=== PATIENT | male | born 1965 | race Caucasian/White ===

== ENCOUNTER 2020-03-05 01:33 | Inpatient (IN) | payer BC ==
[2020-03-05] MEDS ORDERED: ACETAMINOPHEN TAB 325 MG TAB PO STA (01:52)
[2020-03-05] MEDS ORDERED: IBUPROFEN 600 MG TAB PO STA (01:52)
[2020-03-05] MEDS ORDERED: PIPERACILLIN-TAZOBACTAM 3.375 GM in SODIUM CHLORIDE 0.9% 100 ML IVPB ONE (02:00)
[2020-03-05 02:26] LABS: Basophils # (A) 0.1 k/uL (0-0.2); Basophils % (A) 1 %; Eosinophils # (A) 0.3 k/uL (0-0.7); Eosinophils % (A) 2 %; HGB 14.6 gm/dL (13.0-17.5); Lymphocytes # (A) 0.7 k/uL (1.0-4.8); Lymphocytes % (A) 6 %; MCHC 32.4 g/dL (31.0-37.0); MCV 89.7 fL (80.0-100.0); Monocytes # (A) 0.3 k/uL (0-1.0); Monocytes % (A) 3 %; Neutrophils # (A) 11.8 k/uL (1.3-7.7); Neutrophils % (A) 89 %; Platelet Count 251 k/uL (150-450); RBC 5.02 m/uL (4.30-5.90); RDW 13.2 % (11.5-15.5); WBC 13.3 k/uL (3.8-10.6)
[2020-03-05 02:35] LABS: Partial Thromboplastin Time 23.5 sec (22.0-30.0); Prothrombin Time 10.2 sec (9.0-12.0)
[2020-03-05] MEDS: SODIUM CHLORIDE 0.9% 1,000 ML IV SCH ×3 (02:35→22:28)
[2020-03-05] MEDS: SODIUM CHLORIDE 0.9% 500 ML 500 ML IV SCH (02:35)
[2020-03-05 02:40] LABS: Albumin 4.2 g/dL (3.5-5.0); Calcium 8.9 mg/dL (8.4-10.2); Potassium 4.3 mmol/L (3.5-5.1); Total Bilirubin 0.6 mg/dL (0.2-1.3); Total Protein 7.1 g/dL (6.3-8.2)
--- NOTE | 2020-03-05 02:52 | ED ---
General Adult HPI - General Source: patient, RN notes reviewed, old records reviewed Mode of arrival: ambulatory Limitations: no limitations <Cuauhtemoc Bermudez - Last Filed: 03/05/20 19:09> <Crispin Silva - Last Filed: 03/12/20 23:53> - General Chief complaint: Abdominal Pain Stated complaint: Abdominal Pain Time Seen by Provider: 03/05/20 01:47 - History of Present Illness Initial comments: 54 old male patient ED for evaluation of lower quadrant discomfort. Patient had an upper GI scope earlier today. Patient reports that a couple hours ago he began experiencing primarily left lower quadrant discomfort. She reports nausea without emesis. Denies chest pain shortness of breath. Denies any cough or congestion. Does have history of diverticulitis. Denies any other acute complaints. Systemic: Pt denies fatigue, fever/chills, rash. Pt denies weakness, night sweats, weight loss. Neuro: Pt denies headache, visual disturbances, syncope or pre-syncope. HEENT: Pt denies ocular discharge or irritation, otalgia, rhinorrhea, pharyngitis or notable lymphadenopathy. Cardiopulmonary: Pt denies chest pain, SOB, heart palpitations, dyspnea on exertion. Abdominal/GI: Pt denies abdominal pain, n/v/d. : Pt denies dysuria, burning w/ urination, frequency/urgency. Denies new onset urinary or bowel incontinence. MSK: Pt denies myalgia, loss of strength or function in extremities. Neuro: Pt denies new onset weakness, paresthesias. (Cuauhtemoc Bermudez) - Related Data Home Medications Medication Instructions Recorded Confirmed Aspirin EC [Ecotrin Low Dose] 81 mg PO DAILY 03/05/20 03/05/20 Cholecalciferol [Vitamin D3 (25 2,000 unit PO DAILY 03/05/20 03/05/20 Mcg = 1000 Iu)] Glucos Sul 2Kcl/MSM/Chond/C/Mn 1 cap PO DAILY 03/05/20 03/05/20 [Glucosamine Chondroitin Cap] Omeprazole 20 mg PO DAILY 03/05/20 03/05/20 Vitamin B Complex 1 cap PO DAILY 03/05/20 03/05/20 Allergies Allergy/AdvReac Type Severity Reaction Status Date / Time morphine Allergy Anaphylaxis Verified 03/05/20 07:30 Review of Systems ROS Other: All systems not noted in ROS Statement are negative. <Cuauhtemoc Bermudez - Last Filed: 03/05/20 19:09> ROS Other: All systems not noted in ROS Statement are negative. <RicardoCrispin - Last Filed: 03/12/20 23:53> ROS Statement: Those systems with pertinent positive or pertinent negative responses have been documented in the HPI. Past Medical History Additional Past Medical History / Comment(s): Diverticulitis History of Any Multi-Drug Resistant Organisms: None Reported Past Surgical History: Hernia Repair Past Psychological History: No Psychological Hx Reported Smoking Status: Never smoker Past Alcohol Use History: Occasional Past Drug Use History: None Reported <Cuauhtemoc Bermudez - Last Filed: 03/05/20 19:09> General Exam Limitations: no limitations <Cuauhtemoc Bermudez - Last Filed: 03/05/20 19:09> - General Exam Comments Initial Comments: Constitutional: NAD, AOX3, Pt has pleasant affect. HEENT: NC/AT, trachea midline, neck supple, no lymphadenopathy. Posterior pharynx non erythematous, without exudates. External ears appear normal, without discharge. Mucous membranes moist. Eyes PERRLA, EOM intact. There is no scleral icterus. No pallor noted. Cardiopulmonary: RRR, no murmurs, rubs or gallops, no JVD noted. Lungs CTAB in anterior and posterior veliz. No peripheral edema. Abdominal exam: Abdomen soft and non-distended. Abdomen tender to palpation left lower quadrant region. No hepatosplenomegaly. No ecchymosis Neuro: CN II-XII grossly intact. No nuchal rigidity. No raccon eyes, no dickens sign, no hemotympanum. No cervical spinal tenderness. MSK: Full active ROM in upper and lower extremities, 5/5 stregnth. (Cuauhtemoc Bermudez) Course Vital Signs 03/05/20 03/05/20 01:38 03:17 Temperature 101.8 F H 100 F H Pulse Rate 97 96 Respiratory 18 18 Rate Blood Pressure 138/81 124/68 O2 Sat by Pulse 96 97 Oximetry Medical Decision Making - Lab Data Result diagrams: 03/05/20 02:11 03/05/20 02:11 - EKG Data -: EKG Interpreted by Me (and Dr. Mccartney ) <Cuauhtemoc Bermudez - Last Filed: 03/05/20 19:09> - Lab Data Result diagrams: 03/12/20 06:51 03/12/20 06:51 <Crispin Silva - Last Filed: 03/12/20 23:53> - Medical Decision Making 54-year-old male patient ED for evaluation left lower quadrant abdominal pain began earlier today. On physical exam patient is quite tender to palpation in left lower quadrant region. Laboratory investigations revealed, leukocytosis, increased lactic acid noted. Patient administered fluid bolus. CT with cont rast is obtained. Patient initiated on Zosyn. Signed out to Dr. Mccartney pending CT. (Cuauhtemoc Bermudez) I saw this patient in conjunction with the physician high school assistant football coach. I performed independent history and physical exam. Agree with case management. (Allen Silva ) - Lab Data Lab Results 03/05/20 03/05/20 03/05/20 Range/Units 02:11 02:11 02:11 WBC 13.3 H (3.8-10.6) k/uL RBC 5.02 (4.30-5.90) m/uL Hgb 14.6 (13.0-17.5) gm/dL Hct 45.0 (39.0-53.0) % MCV 89.7 (80.0-100.0) fL MCH 29.0 (25.0-35.0) pg MCHC 32.4 (31.0-37.0) g/dL RDW 13.2 (11.5-15.5) % Plt Count 251 (150-450) k/uL Neutrophils % 89 % Lymphocytes % 6 % Monocytes % 3 % Eosinophils % 2 % Basophils % 1 % Neutrophils # 11.8 H (1.3-7.7) k/uL Lymphocytes # 0.7 L (1.0-4.8) k/uL Monocytes # 0.3 (0-1.0) k/uL Eosinophils # 0.3 (0-0.7) k/uL Basophils # 0.1 (0-0.2) k/uL PT 10.2 (9.0-12.0) sec INR 1.0 (<1.2) APTT 23.5 (22.0-30.0) sec Sodium 136 L (137-145) mmol/L Potassium 4.3 (3.5-5.1) mmol/L Chloride 103 (98-107) mmol/L Carbon Dioxide 25 (22-30) mmol/L Anion Gap 8 mmol/L BUN 13 (9-20) mg/dL Creatinine 1.09 (0.66-1.25) mg/dL Est GFR (CKD-EPI)AfAm 87 (>60 ml/min/1.73 sqM) Est GFR (CKD-EPI)NonAf 76 (>60 ml/min/1.73 sqM) Glucose 129 H (74-99) mg/dL Lactic Ac Sepsis Rflx Plasma Lactic Acid [place] (0.7-2.0) mmol/L Calcium 8.9 (8.4-10.2) mg/dL Total Bilirubin 0.6 (0.2-1.3) mg/dL AST 37 (17-59) U/L ALT 32 (4-49) U/L Alkaline Phosphatase 53 (38-126) U/L Total Protein 7.1 (6.3-8.2) g/dL Albumin 4.2 (3.5-5.0) g/dL Urine Color Urine Appearance (Clear) Urine pH (5.0-8.0) Ur Specific [place] (1.001-1.035) Urine Protein (Negative) Urine Glucose (UA) (Negative) Urine Ketones (Negative) Urine Blood (Negative) Urine Nitrite (Negative) Urine Bilirubin (Negative) Urine Urobilinogen (<2.0) mg/dL Ur Leukocyte Esterase (Negative) 03/05/20 03/05/20 03/05/20 Range/Units 02:11 02:45 03:10 WBC (3.8-10.6) k/uL RBC (4.30-5.90) m/uL Hgb (13.0-17.5) gm/dL Hct (39.0-53.0) % MCV (80.0-100.0) fL MCH (25.0-35.0) pg MCHC (31.0-37.0) g/dL RDW (11.5-15.5) % Plt Count (150-450) k/uL Neutrophils % % Lymphocytes % % Monocytes % % Eosinophils % % Basophils % % Neutrophils # (1.3-7.7) k/uL Lymphocytes # (1.0-4.8) k/uL Monocytes # (0-1.0) k/uL Eosinophils # (0-0.7) k/uL Basophils # (0-0.2) k/uL PT (9.0-12.0) sec INR (<1.2) APTT (22.0-30.0) sec Sodium (137-145) mmol/L Potassium (3.5-5.1) mmol/L Chloride (98-107) mmol/L Carbon Dioxide (22-30) mmol/L Anion Gap mmol/L BUN (9-20) mg/dL Creatinine (0.66-1.25) mg/dL Est GFR (CKD-EPI)AfAm (>60 ml/min/1.73 sqM) Est GFR (CKD-EPI)NonAf (>60 ml/min/1.73 sqM) Glucose (74-99) mg/dL Lactic Ac Sepsis Rflx Y Plasma Lactic Acid [place] 2.2 H* (0.7-2.0) mmol/L Calcium (8.4-10.2) mg/dL Total Bilirubin (0.2-1.3) mg/dL AST (17-59) U/L ALT (4-49) U/L Alkaline Phosphatase (38-126) U/L Total Protein (6.3-8.2) g/dL Albumin (3.5-5.0) g/dL Urine Color Light Yellow Urine Appearance Clear (Clear) Urine pH 6.5 (5.0-8.0) Ur Specific [place] 1.010 (1.001-1.035) Urine Protein Negative (Negative) Urine Glucose (UA) Negative (Negative) Urine Ketones Negative (Negative) Urine Blood Negative (Negative) Urine Nitrite Negative (Negative) Urine Bilirubin Negative (Negative) Urine Urobilinogen <2.0 (<2.0) mg/dL Ur Leukocyte Esterase Negative (Negative) - EKG Data EKG Comments: Ventricular rate 89, DC interval 148, QRS 92, QT/QTc 364/442. Normal sinus rhythm. Normal EKG. No concern for acute ischemia. (Cuauhtemoc Bermudez) Disposition Is patient prescribed a controlled substance at d/c from ED?: No <Cuauhtemoc Bermudez - Last Filed: 03/05/20 19:09> <Crispin Silva - Last Filed: 11/05/20 23:53> Clinical Impression: Acute diverticulitis Disposition: ADMITTED IP TO THIS HOSP Condition: Serious
[2020-03-05] MEDS ORDERED: HYDROcodone/APAP 5-325MG 1 EACH TAB PO STA (03:07)
[2020-03-05 03:18] LABS: Appearance,Urine Clear (Clear); Bilirubin,Urine Negative (Negative); Blood,Urine Negative (Negative); Color,Urine Light Yellow; Glucose,Urine (UA) Negative (Negative); Ketones,Urine Negative (Negative); Leukocyte Esterase,Urine Negative (Negative); Nitrite,Urine Negative (Negative); PH, Urine 6.5 (5.0-8.0); Protein,Urine Negative (Negative); Urobilinogen,Urine <2.0 mg/dL (<2.0)
--- NOTE | 2020-03-05 03:27 | CT ---
EXAM: CT Abdomen and Pelvis With Intravenous Contrast CLINICAL HISTORY: ITS.REASON CT Reason: RLQ, LLQ TECHNIQUE: Axial computed tomography images of the abdomen and pelvis with intravenous contrast. CTDI is 25.77 mGy and DLP is 1203.1 mGy-cm. This CT exam was performed using one or more of the following dose reduction techniques: automated exposure control, adjustment of the mA and/or kV according to patient size, and/or use of iterative reconstruction technique. COMPARISON: No relevant prior studies available. FINDINGS: Lung bases: Mild basilar atelectasis. ABDOMEN: Liver: Unremarkable. No mass. Gallbladder and bile ducts: Unremarkable. No calcified stones. No ductal dilation. Pancreas: Unremarkable. No mass. No ductal dilation. Spleen: Unremarkable. No splenomegaly. Adrenals: Unremarkable. No mass. Kidneys and ureters: Horseshoe kidney. No hydronephrosis. Stomach and bowel: Colonic diverticulosis. Sigmoid wall thickening and surrounding fat stranding. Few gas bubbles around the thickened sigmoid in the area of inflammation. May be within diverticula although small extraluminal gas bubbles possible. No obstruction. PELVIS: Appendix: Normal appendix. Bladder: Unremarkable. No mass. Reproductive: Unremarkable as visualized. ABDOMEN and PELVIS: Intraperitoneal space: Unremarkable. No significant fluid collection. Bones/joints: No acute fracture. No dislocation. Soft tissues: Unremarkable. Vasculature: Unremarkable. No abdominal aortic aneurysm. Lymph nodes: Unremarkable. No enlarged lymph nodes. IMPRESSION: 1. Acute sigmoid diverticulitis. Small gas bubbles around the thickened sigmoid likely within diverticula, although small extraluminal gas bubbles adjacent to the thickened sigmoid possible. No fluid collection. 2. Horseshoe kidney. <MYCVCSECTION> Communications: 03/05/20 03:33 Verify Receipt Verified receipt with CLARE Martines in ER for Dr. Martines on 03/05 03:33 (-04:00)
[2020-03-05] MEDS ORDERED: ONDANSETRON 4 MG/2 ML VIAL IVP PRN (03:41)
[2020-03-05] MEDS ORDERED: NALOXONE 0.4 MG/ML 1 ML VIAL IV PRN (03:41)
[2020-03-05] MEDS: HYDROcodone/APAP 5-325MG 1 EACH TAB PO PRN (07:28)
[2020-03-05] MEDS: PANTOPRAZOLE 40 MG/10 ML VIAL IV SCH (08:51)
[2020-03-05] MEDS: PIPERACILLIN-TAZOBACTAM 3.375 GM in SODIUM CHLORIDE 0.9% 100 ML IVPB SCH ×2 (09:26→19:02)
--- NOTE | 2020-03-05 10:41 | P.GSHP ---
<Patricia Milton - Last Filed: 03/05/20 13:14> History of Present Illness H&P Date: 03/05/20 CHIEF COMPLAINT: Left lower quadrant abdominal pain HISTORY OF PRESENT ILLNESS: This is a 54-year-old male with a known history of diverticulitis with previous episode of diverticulitis requiring hospitalization. Patient also has history of GERD and umbilical hernia repair. Per patient he had EGD yesterday with Dr. Montemayor for his dysphagia and the patient was started on Omeprazole for GERD. Patient reports yesterday he ate [place] for dinner And then started having severe left lower quadrant abdominal pain. He reports that the pain was very sharp and rated the pain 10 out of 10. He reports that the pain comes and goes in waves. He was having chills, sweats and nausea without emesis. Patient reports having BMs with no Blood in stool. Patient had computed tomography scan of the abdomen and pelvis Showing acute si gmoid diverticulitis. Small gas bubbles around the thickened sigmoid likely within diverticula, although small extraluminal gas bubbles adjacent to the thickened sigmoid possible. No fluid collection. Patient had fever of 101.8, white count 13.3 and lactic acid 2.2 on admission he's been started on IV antibiotics and IV fluids. PAST MEDICAL HISTORY: See list. PAST SURGICAL HISTORY: See list. Last colonoscopy about 3 years ago. Patient has had prior colonoscopies with polyps removed MEDICATIONS: See list. ALLERGIES: See list. SOCIAL HISTORY: No illicit drug use. REVIEW OF SYSTEMS: CONSTITUTIONAL: Denies fever or chills. HEENT: Denies blurred vision, vision changes, or eye pain. Denies hemoptysis CARDIOVASCULAR: Denies chest pain or pressure. RESPIRATORY: No shortness of breath. GASTROINTESTINAL: See HPI for pertinent findings HEMATOLOGIC: Denies bleeding disorders. GENITOURINARY: Denies any blood in urine or increased urinary frequency. SKIN: Denies pruitis. Denies rash. PHYSICAL EXAM: VITAL SIGNS: Reviewed GENERAL: Well-developed in no acute distress. HEENT: No sclera icterus. Extraocular movements grossly intact. Moist buccal mucosa. Head is atraumatic, normocephalic. No nasal drainage. ABDOMEN: Soft. Nondistended left lower quadrant tenderness with palpation NEUROLOGIC: Alert and oriented. Cranial nerves II through XII grossly intact. LABORATORY DATA: WBC 13.3 Lactic 2.2 down to 1.7 UA negative IMAGING: computed tomography scan of the abdomen and pelvis Showing acute sigmoid diverticulitis. Small gas bubbles around the thickened sigmoid likely within diverticula, although small extraluminal gas bubbles adjacent to the thickened sigmoid possible. No fluid collection. Horseshoe kidney ASSESSMENT: 1. Acute sigmoid diverticulitis with microperforation and sepsis 2. Prior history of diverticulitis 3. Recent EGD yesterday 4. GERD PLAN: -Continue Zosyn 3.375 g IV every 8 hours -Continue IV fluids -Check blood cultures -Continue Tylenol as needed for fevers -Continue [place] for pain -Consult medicine for medical management -GI prophylaxis Protonix and DVT prophylaxis subcu heparin Physician Tube Cutter note has been reviewed by physician. Signing provider agrees with the documented findings, assessment, and plan of care. Past Medical History Additional Past Medical History / Comment(s): Diverticulitis History of Any Multi-Drug Resistant Organisms: None Reported Past Surgical History: Hernia Repair Past Psychological History: No Psychological Hx Reported Smoking Status: Never smoker Past Alcohol Use History: Occasional Past Drug Use History: None Reported Medications and Allergies Home Medications Medication Instructions Recorded Confirmed Type Aspirin EC [Ecotrin Low Dose] 81 mg PO DAILY 03/05/20 03/05/20 History Cholecalciferol [Vitamin D3 (25 2,000 unit PO DAILY 03/05/20 03/05/20 History Mcg = 1000 Iu)] Glucos Sul 2Kcl/MSM/Chond/C/Mn 1 cap PO DAILY 03/05/20 03/05/20 History [Glucosamine Chondroitin Cap] Omeprazole 20 mg PO DAILY 03/05/20 03/05/20 History Vitamin B Complex 1 cap PO DAILY 03/05/20 03/05/20 History Allergies Allergy/AdvReac Type Severity Reaction Status Date / Time morphine Allergy Anaphylaxis Verified 03/05/20 07:30 Surgical - Exam Vital Signs Temp Pulse Resp BP Pulse Ox 101.8 F H 97 18 138/81 96 03/05/20 01:38 03/05/20 01:38 03/05/20 01:38 03/05/20 01:38 03/05/20 01:38 Results - Labs 03/05/20 02:11 03/05/20 02:11 Abnormal Lab Results - Last 24 Hours (Table) 03/05/20 03/05/20 03/05/20 Range/Units 02:11 02:11 02:11 WBC 13.3 H (3.8-10.6) k/uL Neutrophils # 11.8 H (1.3-7.7) k/uL Lymphocytes # 0.7 L (1.0-4.8) k/uL Sodium 136 L (137-145) mmol/L Glucose 129 H (74-99) mg/dL Plasma Lactic Acid [place] 2.2 H* (0.7-2.0) mmol/L Diabetes panel 03/05/20 Range/Units 02:11 Sodium 136 L (137-145) mmol/L Potassium 4.3 (3.5-5.1) mmol/L Chloride 103 (98-107) mmol/L Carbon Dioxide 25 (22-30) mmol/L BUN 13 (9-20) mg/dL Creatinine 1.09 (0.66-1.25) mg/dL Glucose 129 H (74-99) mg/dL Calcium 8.9 (8.4-10.2) mg/dL AST 37 (17-59) U/L ALT 32 (4-49) U/L Alkaline Phosphatase 53 (38-126) U/L Total Protein 7.1 (6.3-8.2) g/dL Albumin 4.2 (3.5-5.0) g/dL Calcium panel 03/05/20 Range/Units 02:11 Calcium 8.9 (8.4-10.2) mg/dL Albumin 4.2 (3.5-5.0) g/dL Pituitary panel 03/05/20 Range/Units 02:11 Sodium 136 L (137-145) mmol/L Potassium 4.3 (3.5-5.1) mmol/L Chloride 103 (98-107) mmol/L Carbon Dioxide 25 (22-30) mmol/L BUN 13 (9-20) mg/dL Creatinine 1.09 (0.66-1.25) mg/dL Glucose 129 H (74-99) mg/dL Calcium 8.9 (8.4-10.2) mg/dL Adrenal panel 03/05/20 Range/Units 02:11 Sodium 136 L (137-145) mmol/L Potassium 4.3 (3.5-5.1) mmol/L Chloride 103 (98-107) mmol/L Carbon Dioxide 25 (22-30) mmol/L BUN 13 (9-20) mg/dL Creatinine 1.09 (0.66-1.25) mg/dL Glucose 129 H (74-99) mg/dL Calcium 8.9 (8.4-10.2) mg/dL Total Bilirubin 0.6 (0.2-1.3) mg/dL AST 37 (17-59) U/L ALT 32 (4-49) U/L Alkaline Phosphatase 53 (38-126) U/L Total Protein 7.1 (6.3-8.2) g/dL Albumin 4.2 (3.5-5.0) g/dL <Reuben Montemayor - Last Filed: 03/05/20 13:48> History of Present Illness As above. Patient with history of previous sigmoid diverticulitis. Underwent elective EGD yesterday and while there are mention that he was having some intermittent left lower quadrant pain. I told the family to go to the hospital for evaluation of the pain worsened and he did go to the hospital yesterday evening. Patient states the pain he was having yesterday was more severe than it has been in years. CAT scan showed evidence of acute diverticulitis with a few small extraluminal gas bubbles consistent with microscopic perforation. He states he does feel better today. White blood cell count remains elevated. Lactic acid was elevated and now improved. Continue broad-spectrum antibiotics. Continue clear liquid diet only. Surgical - Exam Vital Signs Temp Pulse Resp BP Pulse Ox 101.8 F H 97 18 138/81 96 03/05/20 01:38 03/05/20 01:38 03/05/20 01:38 03/05/20 01:38 03/05/20 01:38 Results - Labs 03/05/20 02:11 03/05/20 02:11 Abnormal Lab Results - Last 24 Hours (Table) 03/05/20 03/05/20 03/05/20 Range/Units 02:11 02:11 02:11 WBC 13.3 H (3.8-10.6) k/uL Neutrophils # 11.8 H (1.3-7.7) k/uL Lymphocytes # 0.7 L (1.0-4.8) k/uL Sodium 136 L (137-145) mmol/L Glucose 129 H (74-99) mg/dL Plasma Lactic Acid [place] 2.2 H* (0.7-2.0) mmol/L Diabetes panel 03/05/20 Range/Units 02:11 Sodium 136 L (137-145) mmol/L Potassium 4.3 (3.5-5.1) mmol/L Chloride 103 (98-107) mmol/L Carbon Dioxide 25 (22-30) mmol/L BUN 13 (9-20) mg/dL Creatinine 1.09 (0.66-1.25) mg/dL Glucose 129 H (74-99) mg/dL Calcium 8.9 (8.4-10.2) mg/dL AST 37 (17-59) U/L ALT 32 (4-49) U/L Alkaline Phosphatase 53 (38-126) U/L Total Protein 7.1 (6.3-8.2) g/dL Albumin 4.2 (3.5-5.0) g/dL Calcium panel 03/05/20 Range/Units 02:11 Calcium 8.9 (8.4-10.2) mg/dL Albumin 4.2 (3.5-5.0) g/dL Pituitary panel 03/05/20 Range/Units 02:11 Sodium 136 L (137-145) mmol/L Potassium 4.3 (3.5-5.1) mmol/L Chloride 103 (98-107) mmol/L Carbon Dioxide 25 (22-30) mmol/L BUN 13 (9-20) mg/dL Creatinine 1.09 (0.66-1.25) mg/dL Glucose 129 H (74-99) mg/dL Calcium 8.9 (8.4-10.2) mg/dL Adrenal panel 03/05/20 Range/Units 02:11 Sodium 136 L (137-145) mmol/L Potassium 4.3 (3.5-5.1) mmol/L Chloride 103 (98-107) mmol/L Carbon Dioxide 25 (22-30) mmol/L BUN 13 (9-20) mg/dL Creatinine 1.09 (0.66-1.25) mg/dL Glucose 129 H (74-99) mg/dL Calcium 8.9 (8.4-10.2) mg/dL Total Bilirubin 0.6 (0.2-1.3) mg/dL AST 37 (17-59) U/L ALT 32 (4-49) U/L Alkaline Phosphatase 53 (38-126) U/L Total Protein 7.1 (6.3-8.2) g/dL Albumin 4.2 (3.5-5.0) g/dL
[2020-03-05] MEDS: ACETAMINOPHEN TAB 325 MG TAB PO PRN (13:49)
[2020-03-05] MEDS: metroNIDAZOLE-NS PMX 500 MG in SALINE 1 100ML.BAG IVPB SCH (16:17)
[2020-03-05] MEDS: KETOROLAC 15 MG/ML 1 ML VIAL IVP SCH (19:01)
[2020-03-05] MEDS: HEPARIN SODIUM,PORCINE 5,000 UNIT/ML 1 ML VIAL SQ SCH (21:58)
--- NOTE | 2020-03-05 23:26 | P.CONS ---
History of Present Illness - Reason for Consult Consult date: 03/05/20 Medical management Requesting physician: Reuben Montemayor - Chief Complaint Abdominal pain - History of Present Illness History of presenting complaint: This is a pleasant 54 year patient . Patient's had one prior by bout of diverticulitis few years ago. For last few days has been feeling a bit queasy the left lower abdomen. Symptoms progressively got worse. The day prior to admission pain progressed to be rather severe today left lower abdomen. There no significant nausea. No vomiting. Fever and chills were present. Patient normally has one bowel movement every day or every other day. Presented to the ER. Was febrile septic. It showed few gas bubbles around the tick and sigmoid in the area of inflammation. Patient admitted with IV fluids antibiotics. On a clear liquid diet. Significant pain. Review of systems: GEN.: Fever and chills EYES: None HEENT: None NECK: None RESPIRATORY: None CARDIOVASCULAR: None GASTROINTESTINAL: As above GENITOURINARY: None MUSCULOSKELETAL: None LYMPHATICS: None HEMATOLOGICAL: None PSYCHIATRY: None NEUROLOGICAL: None Past medical history to include: Diverticulitis, hernia repair Social history: Lives with his . No history of smoking and alcohol. Employed Family history: Reviewed, noncontributory to presentation Physical examination: VITAL SIGNS: 101.8, 97, 18, 138/81, 96% room air GENERAL: BMI 31, laying in bed, not in distress. EYES: Pupils equal. Conjunctiva normal. HEENT: External appearance of nose and ears normal, oral cavity grossly normal. NECK: JVD not raised; masses not palpable. HEART: First and second heart sounds are normal; no edema. LUNGS: Respiratory rate normal; clear to auscultation. ABDOMEN: Soft, significant tenderness in the left lower quadrant with mild gu arding, liver spleen not palpable, no masses palpable. PSYCH: Alert and oriented x3; mood and affect normal. NEUROLOGICAL: Cranial nerves grossly intact; no facial asymmetry, power and sensation grossly intact. LYMPHATICS: No lymph nodes palpable in the axilla and neck INVESTIGATIONS, reviewed in the clinical context: White count 13.3 hemoglobin 14.6 left shift, potassium 4.3 creatinine 1.09 lactic acid 2.2 Computed tomography scan of the abdomen-sigmoid dermatitis with few gas bubbles Assessment: -Acute severe sigmoid diverticular disease with possibly localized perforation contained -Sepsis from above -Lactic acidosis from above Plan: Patient is on IV Zosyn and IV Flagyl. Subcu heparin for DT prophylaxis. IV fluids. Patient looking liquid diet. Care was discussed with the patient question also. Activity as tolerated. Thank you Dr. Craft Past Medical History Additional Past Medical History / Comment(s): Diverticulitis History of Any Multi-Drug Resistant Organisms: None Reported Past Surgical History: Hernia Repair Past Psychological History: No Psychological Hx Reported Smoking Status: Never smoker Past Alcohol Use History: Occasional Past Drug Use History: None Reported Medications and Allergies Home Medications Medication Instructions Recorded Confirmed Type Aspirin EC [Ecotrin Low Dose] 81 mg PO DAILY 03/05/20 03/05/20 History Cholecalciferol [Vitamin D3 (25 2,000 unit PO DAILY 03/05/20 03/05/20 History Mcg = 1000 Iu)] Glucos Sul 2Kcl/MSM/Chond/C/Mn 1 cap PO DAILY 03/05/20 03/05/20 History [Glucosamine Chondroitin Cap] Omeprazole 20 mg PO DAILY 03/05/20 03/05/20 History Vitamin B Complex 1 cap PO DAILY 03/05/20 03/05/20 History Allergies Allergy/AdvReac Type Severity Reaction Status Date / Time morphine Allergy Anaphylaxis Verified 03/05/20 07:30 Physical Exam Vitals: Vital Signs Temp Pulse Pulse Resp BP BP Pulse Ox 03/05/20 08:00 83 18 03/05/20 07:32 98.5 F 83 18 121/63 95 03/05/20 04:55 99.4 F 86 18 113/69 94 L 03/05/20 03:17 100 F H 96 18 124/68 97 03/05/20 01:38 101.8 F H 97 18 138/81 96 Intake and Output 03/04/20 03/05/20 03/05/20 22:59 06:59 14:59 Other: # Voids 0 0 Weight 95.254 kg Results CBC & Chem 7: 03/05/20 02:11 03/05/20 02:11 Labs: Abnormal Lab Results - Last 24 Hours (Table) 03/05/20 03/05/20 03/05/20 Range/Units 02:11 02:11 02:11 WBC 13.3 H (3.8-10.6) k/uL Neutrophils # 11.8 H (1.3-7.7) k/uL Lymphocytes # 0.7 L (1.0-4.8) k/uL Sodium 136 L (137-145) mmol/L Glucose 129 H (74-99) mg/dL Plasma Lactic Acid [place] 2.2 H* (0.7-2.0) mmol/L
[2020-03-06] MEDS: KETOROLAC 15 MG/ML 1 ML VIAL IVP SCH ×5 (00:36→23:37)
[2020-03-06] MEDS: metroNIDAZOLE-NS PMX 500 MG in SALINE 1 100ML.BAG IVPB SCH ×4 (00:37→23:38)
[2020-03-06] MEDS: HYDROcodone/APAP 5-325MG 1 EACH TAB PO PRN ×3 (02:00→16:05)
[2020-03-06] MEDS: PIPERACILLIN-TAZOBACTAM 3.375 GM in SODIUM CHLORIDE 0.9% 100 ML IVPB SCH ×3 (03:58→19:27)
[2020-03-06] MEDS: SODIUM CHLORIDE 0.9% 1,000 ML IV SCH ×3 (04:55→18:58)
[2020-03-06 06:19] LABS: Basophils % (A) 0 %; Eosinophils # (A) 0.1 k/uL (0-0.7); Eosinophils % (A) 1 %; HCT 37.2 % (39.0-53.0); HGB 12.1 gm/dL (13.0-17.5); Lymphocytes # (A) 1.3 k/uL (1.0-4.8); Lymphocytes % (A) 12 %; MCH 29.7 pg (25.0-35.0); MCHC 32.5 g/dL (31.0-37.0); MCV 91.4 fL (80.0-100.0); Mean Platelet Volume 7.2; Monocytes # (A) 0.4 k/uL (0-1.0); Monocytes % (A) 3 %; Neutrophils # (A) 9.4 k/uL (1.3-7.7); Neutrophils % (A) 83 %; Platelet Count 207 k/uL (150-450); RBC 4.07 m/uL (4.30-5.90); RDW 13.4 % (11.5-15.5); WBC 11.3 k/uL (3.8-10.6)
[2020-03-06] MEDS: ACETAMINOPHEN TAB 325 MG TAB PO PRN (07:41)
--- NOTE | 2020-03-06 08:44 | P.PN ---
<Patricia Milton - Last Filed: 03/06/20 08:40> Subjective Progress Note Date: 03/06/20 CHIEF COMPLAINT: Acute diverticulitis with microperforation HISTORY OF PRESENT ILLNESS: Patient is still very tender in the left lower quadrant. He is rating his pain about 7 out of 10. He did have a fever of 101.3 white count did come down from 13.3-11.3. He denies any nausea or vomiting. Abdominal x-ray has been ordered. We'll keep patient nothing by mouth. PHYSICAL EXAM: VITAL SIGNS: Reviewed. GENERAL: Well-developed in no acute distress. HEENT: No sclera icterus. Extraocular movements grossly intact. Moist buccal m ucosa. Head is atraumatic, normocephalic. ABDOMEN: Soft. Nondistended. Left lower quadrant tenderness with guarding NEUROLOGIC: Alert and oriented. Cranial nerves II through XII grossly intact. ASSESSMENT: 1. Acute sigmoid diverticulitis with microperforation and sepsis 2. Prior history of diverticulitis 3. Recent EGD yesterday 4. GERD PLAN: -check stat abdominal x-ray to evaluate for any further perforation -Keep patient nothing by mouth for now -Continue antibiotics, Zosyn and Flagyl -Continue IV fluids -GI prophylaxis Protonix and DVT prophylaxis Subcu heparin Physician Media Services Director note has been reviewed by physician. Signing provider agrees with the documented findings, assessment, and plan of care. Objective - Vital Signs Vital signs: Vital Signs Temp 101.3 F H 03/06/20 07:28 Pulse 96 03/06/20 07:28 Resp 17 03/06/20 07:28 BP 154/80 03/06/20 07:28 Pulse Ox 96 03/06/20 07:28 Intake & Output 03/05/20 03/06/20 03/06/20 18:59 06:59 18:59 Other: Voiding Method Toilet # Voids 2 1 - Labs CBC & Chem 7: 03/06/20 06:00 03/05/20 02:11 Labs: Abnormal Lab Results - Last 24 Hours (Table) 03/06/20 Range/Units 06:00 WBC 11.3 H (3.8-10.6) k/uL RBC 4.07 L (4.30-5.90) m/uL Hgb 12.1 L (13.0-17.5) gm/dL Hct 37.2 L (39.0-53.0) % Neutrophils # 9.4 H (1.3-7.7) k/uL Microbiology - Last 24 Hours (Table) 03/05/20 02:11 Blood Culture - Preliminary Blood No Growth after 24 hours <JoycenicholasReuben - Last Filed: 03/06/20 12:43> Subjective Patient says his pain is improved today from admission. He did have a fever this morning 11.3. Repeat abdominal films show no evidence of peritoneum. He did have a bowel movement and flatus yesterday. No nausea or vomiting. Objective - Vital Signs Vital signs: Vital Signs Temp 101.3 F H 03/06/20 07:28 Pulse 96 03/06/20 07:28 Resp 17 03/06/20 07:28 BP 154/80 03/06/20 07:28 Pulse Ox 96 03/06/20 07:28 Intake & Output 03/05/20 03/06/20 03/06/20 18:59 06:59 18:59 Other: Voiding Method Toilet # Voids 2 1 - Exam Abdomen: Soft, nondistended, left lower quadrant tenderness present, minimal tenderness right lower quadrant, no upper abdominal tenderness - Labs CBC & Chem 7: 03/06/20 06:00 03/06/20 06:00 Labs: Abnormal Lab Results - Last 24 Hours (Table) 03/06/20 03/06/20 Range/Units 06:00 06:00 WBC 11.3 H (3.8-10.6) k/uL RBC 4.07 L (4.30-5.90) m/uL Hgb 12.1 L (13.0-17.5) gm/dL Hct 37.2 L (39.0-53.0) % Neutrophils # 9.4 H (1.3-7.7) k/uL BUN/Creatinine Ratio 10.91 L (12.00-20.00) Ratio Calcium 7.9 L (8.7-10.3) mg/dL Microbiology - Last 24 Hours (Table) 03/05/20 02:11 Blood Culture - Preliminary Blood No Growth after 24 hours Assessment and Plan (1) Sigmoid diverticulitis Narrative/Plan: 54 old male with sigmoid colon diverticulitis with microperforation present. P atient had a fever this morning. White blood cell count slightly improved. We did order abdominal films to rule out progression to erwin pneumoperitoneum which was negative. Patient states he definitely feels better than he did on arrival. Continue conservative management at this time with liquid diet only and IV antibiotics. We'll monitor closely. Current Visit: Yes Status: Acute Code(s): K57.32 - DVTRCLI OF LG INT W/O PERFORATION OR ABSCESS W/O BLEEDING SNOMED Code(s): 140522326
[2020-03-06] MEDS: PANTOPRAZOLE 40 MG/10 ML VIAL IV SCH (08:51)
[2020-03-06] MEDS: HEPARIN SODIUM,PORCINE 5,000 UNIT/ML 1 ML VIAL SQ SCH ×2 (08:56→20:30)
--- NOTE | 2020-03-06 09:27 | XR ---
2 view abdomen HISTORY: Abdominal pain, perforation 2 views the abdomen on [address] scan 03/05/2020 Lung bases show subsegmental basilar atelectatic change. There is no evident pneumoperitoneum. No pat hologic calcification. No bowel obstruction. Multiple calcifications within the pelvis represent phle boliths. Osteoarthritic changes present within the hips. There are some air-fluid levels on the uprig ht exam without bowel distention. IMPRESSION: Basilar atelectasis. Correlate for ileus.
[2020-03-06 10:06] LABS: African American GFR (CKD) 86.5 (60.0-200.0); Anion Gap 7.6 mmol/L (4.00-12.00); BUN/Creat Ratio 10.91 Ratio (12.00-20.00); Calcium 7.9 mg/dL (8.7-10.3); Carbon Dioxide 24.4 mmol/L (21.6-31.8); Non-African American GFR(CKD) 74.6 (60.0-200.0); Potassium 3.5 mmol/L (3.5-5.5)
--- NOTE | 2020-03-06 22:41 | P.PN ---
Progress Note - Text Progress Note Date: 03/06/20 - Chief Complaint Abdominal pain - History of Present Illness History of presenting complaint: This is a pleasant 54 year patient . Patient's had one prior by bout of diverticulitis few years ago. For last few days has been feeling a bit queasy the left lower abdomen. Symptoms progressively got worse. The day prior to admission pain progressed to be rather severe today left lower abdomen. There no significant nausea. No vomiting. Fever and chills were present. Patient normally has one bowel movement every day or every other day. Presented to the ER. Was febrile septic. It showed few gas bubbles around the tick and sigmoid in the area of inflammation. Patient admitted with IV fluids antibiotics. On a clear liquid diet. Significant pain. today-still having abdominal pain. On clear liquids. Did have a mushy bowel movement. at the bedside. No fever. No nausea vomiting. Review of systems: Was done for constitutional, cardiovascular, GI, pulmonary. relevant finding as above Active Medications Acetaminophen (Acetaminophen Tab 325 Mg Tab) 650 mg PO Q6HR PRN PRN Reason: Mild Pain or Fever > 100.5 Last Admin: 03/06/20 07:41 Dose: 650 mg Documented by: Hydrocodone Bitart/Acetaminophen (Hydrocodone/Apap 5-325mg 1 Each Tab) 1 each PO Q4HR PRN PRN Reason: Moderate Pain Last Admin: 03/06/20 16:05 Dose: 1 each Documented by: Heparin Sodium (Porcine) (Heparin Sodium,Porcine 5,000 Unit/Ml 1 Ml Vial) 5,000 unit SQ Q12HR [facility] Last Admin: 03/06/20 20:30 Dose: 5,000 unit Documented by: Sodium Chloride (Saline 0.9%) 1,000 mls @ 130 mls/hr IV .Q7H42M [facility] Last Admin: 03/06/20 18:58 Dose: Not Given Documented by: Piperacillin Sod/Tazobactam (Sod 3.375 gm/ Sodium Chloride) 100 mls @ 25 mls/hr IVPB Q8H [facility] Last Admin: 03/06/20 19:27 Dose: 25 mls/hr Documented by: Metronidazole 500 mg/ IV (Solution) 100 mls @ 100 mls/hr IVPB Q8HR [facility] Last Admin: 03/06/20 16:06 Dose: 100 mls/hr Documented by: Ketorolac Tromethamine (Ketorolac 15 Mg/Ml 1 Ml Vial) 15 mg IVP Q6HR [facility] Stop: 03/10/20 18:01 Last Admin: 03/06/20 19:27 Dose: 15 mg Documented by: Naloxone HCl (Naloxone 0.4 Mg/Ml 1 Ml Vial) 0.2 mg IV Q2M PRN PRN Reason: Opioid Reversal Ondansetron HCl (Ondansetron 4 Mg/2 Ml Vial) 4 mg IVP Q8HR PRN PRN Reason: Nausea And Vomiting Pantoprazole Sodium (Pantoprazole 40 Mg/10 Ml Vial) 40 mg IV DAILY [facility] Last Admin: 03/06/20 08:51 Dose: 40 mg Documented by: Physical examination: VITAL SIGNS: 101.3, 96, 17, 150/80, 96% room air GENERAL:laying in bed, tired EYES: Pupils equal. Conjunctiva normal. NECK: JVD not raised; masses not palpable. HEART: First and second heart sounds are normal; no edema. LUNGS: Respiratory rate normal; clear to auscultation. ABDOMEN: Soft, significant tenderness in the left lower quadrant with mild gua rding, liver spleen not palpable, no masses palpable. PSYCH: Alert and oriented x3; mood and affect normal. INVESTIGATIONS, reviewed in the clinical context: White count 11.3 hemoglobin 12.1 potassium 3.5 creatinine 1.1 Previous testing White count 13.3 hemoglobin 14.6 left shift, potassium 4.3 creatinine 1.09 lactic acid 2.2 Computed tomography scan of the abdomen-sigmoid dermatitis with few gas bubbles Assessment: -Acute severe sigmoid diverticular disease with possibly localized perforation contained-slow to respond -Sepsis from above-slow to respond -Lactic acidosis from above Plan: continue IV Zosyn and IV Flagyl. Subcu heparin IV fluids. on clear liquid diet. Care was discussed with the patient and the . Encouraged to be out of bed as tolerated.. Thank you Dr. Craft
[2020-03-07] MEDS: PIPERACILLIN-TAZOBACTAM 3.375 GM in SODIUM CHLORIDE 0.9% 100 ML IVPB SCH ×3 (03:31→18:27)
[2020-03-07] MEDS: SODIUM CHLORIDE 0.9% 1,000 ML IV SCH ×3 (03:58→15:38)
[2020-03-07] MEDS: KETOROLAC 15 MG/ML 1 ML VIAL IVP SCH ×3 (05:44→17:54)
[2020-03-07 07:20] LABS: Basophils % (A) 0 %; Eosinophils # (A) 0.2 k/uL (0-0.7); Eosinophils % (A) 2 %; HCT 34.7 % (39.0-53.0); HGB 11.3 gm/dL (13.0-17.5); Lymphocytes % (A) 10 %; MCH 29.7 pg (25.0-35.0); MCHC 32.7 g/dL (31.0-37.0); MCV 90.9 fL (80.0-100.0); Monocytes # (A) 0.4 k/uL (0-1.0); Monocytes % (A) 5 %; Neutrophils # (A) 7.7 k/uL (1.3-7.7); Neutrophils % (A) 82 %; Platelet Count 205 k/uL (150-450); RBC 3.81 m/uL (4.30-5.90); RDW 13.4 % (11.5-15.5); WBC 9.3 k/uL (3.8-10.6)
[2020-03-07] MEDS: HYDROcodone/APAP 5-325MG 1 EACH TAB PO PRN ×2 (08:18→15:53)
[2020-03-07] MEDS: HEPARIN SODIUM,PORCINE 5,000 UNIT/ML 1 ML VIAL SQ SCH ×2 (08:18→20:14)
[2020-03-07] MEDS: PANTOPRAZOLE 40 MG/10 ML VIAL IV SCH (08:18)
[2020-03-07] MEDS: metroNIDAZOLE-NS PMX 500 MG in SALINE 1 100ML.BAG IVPB SCH ×3 (08:19→15:54)
[2020-03-07 08:26] LABS: Glucose,Whole Blood 91 mg/dL (75-99)
[2020-03-07 09:03] LABS: African American GFR (CKD) >90 (>60 ml/min/1.73 sqM); Anion Gap 4 mmol/L; Blood Urea Nitrogen 8 mg/dL (9-20); Calcium 7.7 mg/dL (8.4-10.2); Carbon Dioxide 25 mmol/L (22-30); Chloride 109 mmol/L (98-107); Glucose 97 mg/dL (74-99); Non-African American GFR(CKD) 79 (>60 ml/min/1.73 sqM); Potassium 3.5 mmol/L (3.5-5.1); Sodium 138 mmol/L (137-145)
[2020-03-07] MEDS: ACETAMINOPHEN TAB 325 MG TAB PO PRN (15:41)
--- NOTE | 2020-03-07 16:48 | P.PN ---
Subjective Progress Note Date: 03/07/20 CHIEF COMPLAINT: Acute diverticulitis HISTORY OF PRESENT ILLNESS: The patient is a 54-year-old male admitted for acute diverticulitis and perforation. He reports intolerance to flagyl with worsening abdominal cramps and nausea. He reports loose stools. This is his second diverticulitis attack. Last colonoscopy less than 5 years ago. ROS: No chills. No new chest pain. No productive sputum. Tm 99.7 PHYSICAL EXAM: VITAL SIGNS: Reviewed CONSTITUTIONAL: Well developed and in no acute distress. EYES: Conjuctivae without sclera icterus. Extraocular movements grossly intact. HEAD, EARS, NOSE, THROAT: Moist buccal mucosa. Head is atraumatic, normocephalic. Hears conversational speech. No nasal drainage. NECK: Supple. No thyroidomegaly. RESPIRATORY: Non-labored respirations and equal bilateral excursions. CARDIOVASCULAR: Palpable 2+ radial pulses. Regular rate. Regular rhythm. ABDOMEN: Soft. Tender left lower quadrant. MUSCULOSKELETAL: No gross deformity of the lower extremities noted. No clubbing. No cyanosis. SKIN: Good skin turgor. Well perfused. NEUROLOGIC: Cranial nerves II through XII grossly intact. No focal or lateralizing signs. PSYCH: Appropriate affect. Alert and oriented to person, place and time. CLINICAL LABS: White blood cell count normal 9.3 down from 11.3. Hemoglobin down 12.1-11.3. STUDIES: CT of the abdomen and pelvis independently reviewed demonstrating inflammatory changes along the sigmoid colon with thickened wall. No free air at the diaphragm identified. This my independent interpretation. ASSESSMENT: 1. Acute diverticulitis 2. Intolerance to flagyl PLAN: 1. He reports worsening symptoms with flagyl. Will discontinue as Zosyn covers gram- and anerobic organisms. 2. Decrease diet to ice chips 3. Scheduled Ofirmev and Tylenol Objective - Vital Signs Vital signs: Vital Signs Temp 98.1 F 03/07/20 07:00 Pulse 85 03/07/20 07:00 Resp 16 03/07/20 01:35 BP 138/78 03/07/20 07:00 Pulse Ox 91 L 03/07/20 07:00 Intake & Output 03/06/20 03/07/20 03/07/20 18:59 06:59 18:59 Other: # Voids 1 2 - Labs CBC & Chem 7: 03/07/20 06:29 03/07/20 06:29 Labs: Abnormal Lab Results - Last 24 Hours (Table) 03/07/20 03/07/20 Range/Units 06:29 06:29 RBC 3.81 L (4.30-5.90) m/uL Hgb 11.3 L (13.0-17.5) gm/dL Hct 34.7 L (39.0-53.0) % Chloride 109 H (98-107) mmol/L BUN 8 L (9-20) mg/dL Calcium 7.7 L (8.4-10.2) mg/dL Microbiology - Last 24 Hours (Table) 03/05/20 02:11 Blood Culture - Preliminary Blood No Growth after 48 hours
[2020-03-07] MEDS: ACETAMINOPHEN IV (For NPO) 1,000 MG in EMPTY BAG 1 BAG IVPB SCH (17:54)
--- NOTE | 2020-03-07 23:11 | P.PN ---
Progress Note - Text Progress Note Date: 03/07/20 - Chief Complaint Abdominal pain History of presenting complaint: This is a pleasant 54 year patient . Patient's had one prior by bout of diverticulitis few years ago. For last few days has been feeling a bit queasy the left lower abdomen. Symptoms progressively got worse. The day prior to admission pain progressed to be rather severe today left lower abdomen. There no significant nausea. No vomiting. Fever and chills were present. Patient normally has one bowel movement every day or every other day. Presented to the ER. Was febrile septic. It showed few gas bubbles around the tick and sigmoid in the area of inflammation. Patient admitted with IV fluids antibiotics. On a clear liquid diet. Significant pain. today-very slight improvement abdominal pain. Pain fluctuating. Up to the bathroom. Had one loose stool. No nausea vomiting Review of systems: Was done for constitutional, cardiovascular, GI, pulmonary. relevant finding as above Active Medications Hydrocodone Bitart/Acetaminophen (Hydrocodone/Apap 5-325mg 1 Each Tab) 1 each PO Q4HR PRN PRN Reason: Moderate Pain Last Admin: 03/07/20 15:53 Dose: 1 each Documented by: Heparin Sodium (Porcine) (Heparin Sodium,Porcine 5,000 Unit/Ml 1 Ml Vial) 5,000 unit SQ Q12HR [facility] Last Admin: 03/07/20 20:14 Dose: 5,000 unit Documented by: Sodium Chloride (Saline 0.9%) 1,000 mls @ 130 mls/hr IV .Q7H42M [facility] Last Admin: 03/07/20 15:38 Dose: Not Given Documented by: Piperacillin Sod/Tazobactam (Sod 3.375 gm/ Sodium Chloride) 100 mls @ 25 mls/hr IVPB Q8H [facility] Last Admin: 03/07/20 18:27 Dose: 25 mls/hr Documented by: Acetaminophen 1,000 mg/ IV (Solution) 100 mls @ 400 mls/hr IVPB Q6HR [facility] Stop: 03/08/20 12:14 Last Admin: 03/07/20 17:54 Dose: 400 mls/hr Documented by: Ketorolac Tromethamine (Ketorolac 15 Mg/Ml 1 Ml Vial) 15 mg IVP Q6HR [facility] Stop: 03/10/20 18:01 Last Admin: 03/07/20 17:54 Dose: 15 mg Documented by: Naloxone HCl (Naloxone 0.4 Mg/Ml 1 Ml Vial) 0.2 mg IV Q2M PRN PRN Reason: Opioid Reversal Ondansetron HCl (Ondansetron 4 Mg/2 Ml Vial) 4 mg IVP Q8HR PRN PRN Reason: Nausea And Vomiting Pantoprazole Sodium (Pantoprazole 40 Mg/10 Ml Vial) 40 mg IV DAILY TO Last Admin: 03/07/20 08:18 Dose: 40 mg Documented by: Physical examination: VITAL SIGNS: Afebrile, 85, 1:30 to 78, 91% room air GENERAL:laying in bed, tired EYES: Pupils equal. Conjunctiva normal. NECK: JVD not raised; masses not palpable. HEART: First and second heart sounds are normal; no edema. LUNGS: Respiratory rate normal; clear to auscultation. ABDOMEN: Soft, tenderness in the left lower quadrant , liver spleen not palpable, no masses palpable. PSYCH: Alert and oriented x3; mood and affect normal. INVESTIGATIONS, reviewed in the clinical context: White count 9.3 hemoglobin 11.3 potassium 3.5 creatinine 1.06 Previous testing White count 13.3 hemoglobin 14.6 left shift, potassium 4.3 creatinine 1.09 lactic acid 2.2 Computed tomography scan of the abdomen-sigmoid dermatitis with few gas bubbles Assessment: -Acute severe sigmoid diverticular disease with possibly localized perforation contained-slow to respond -Sepsis from above-slow to respond -Lactic acidosis from above Plan: Patient on IV Zosyn. Patient's concern about Flagyl causing his abdominal symptoms. This was earlier discontinued Thank you Dr. Craft
[2020-03-08] MEDS: ACETAMINOPHEN IV (For NPO) 1,000 MG in EMPTY BAG 1 BAG IVPB SCH ×3 (00:07→12:59)
[2020-03-08] MEDS: SODIUM CHLORIDE 0.9% 1,000 ML IV SCH ×3 (00:21→15:11)
[2020-03-08] MEDS: KETOROLAC 15 MG/ML 1 ML VIAL IVP SCH ×5 (00:24→23:27)
[2020-03-08] MEDS: PIPERACILLIN-TAZOBACTAM 3.375 GM in SODIUM CHLORIDE 0.9% 100 ML IVPB SCH ×3 (03:26→17:46)
[2020-03-08 06:27] LABS: Basophils % (A) 0 %; Eosinophils # (A) 0.2 k/uL (0-0.7); Eosinophils % (A) 2 %; HCT 37.1 % (39.0-53.0); HGB 11.9 gm/dL (13.0-17.5); Lymphocytes # (A) 0.8 k/uL (1.0-4.8); Lymphocytes % (A) 10 %; MCH 29.3 pg (25.0-35.0); MCV 91.7 fL (80.0-100.0); Mean Platelet Volume 7.3; Monocytes # (A) 0.3 k/uL (0-1.0); Monocytes % (A) 5 %; Neutrophils # (A) 6.1 k/uL (1.3-7.7); Neutrophils % (A) 82 %; Platelet Count 230 k/uL (150-450); RBC 4.05 m/uL (4.30-5.90); RDW 13.4 % (11.5-15.5); WBC 7.5 k/uL (3.8-10.6)
[2020-03-08] MEDS: HYDROcodone/APAP 5-325MG 1 EACH TAB PO PRN (09:25)
[2020-03-08] MEDS: PANTOPRAZOLE 40 MG/10 ML VIAL IV SCH (09:25)
[2020-03-08] MEDS: HEPARIN SODIUM,PORCINE 5,000 UNIT/ML 1 ML VIAL SQ SCH (09:26)
--- NOTE | 2020-03-08 14:35 | P.PN ---
Subjective Progress Note Date: 03/08/20 CHIEF COMPLAINT: Acute diverticulitis HISTORY OF PRESENT ILLNESS: The patient is a 54-year-old male admitted for acute diverticulitis and perforation. He was discontinued from Flagyl secondary to worsening abdominal cramping. He was also decreased eye to eye ships and popsicles. No further fevers. "I feel better than yesterday." He reports increased gas bloat that improves with Protonix. He is passing flatus. Decreased bowel movements in terms of diarrhea. ROS: No chills. No new chest pain. No productive sputum. PHYSICAL EXAM: VITAL SIGNS: Reviewed CONSTITUTIONAL: Well developed and in no acute distress. EYES: Conjuctivae without sclera icterus. Extraocular movements grossly intact. HEAD, EARS, NOSE, THROAT: Moist buccal mucosa. Head is atraumatic, normocephalic. Hears conversational speech. No nasal drainage. NECK: No thyroidomegaly. RESPIRATORY: Non-labored respirations and equal bilateral excursions. CARDIOVASCULAR: Palpable 2+ radial pulses. ABDOMEN: Mild distention. No peritonitis. Decreased tenderness left lower quadrant. MUSCULOSKELETAL: No gross deformity of the lower extremities noted. No clubbing. No cyanosis. SKIN: Good skin turgor. Well perfused. NEUROLOGIC: Cranial nerves II through XII grossly intact. No focal or lateralizing signs. PSYCH: Appropriate affect. Alert and oriented to person, place and time. CLINICAL LABS: White blood cell count normal improvement 9.3-7.5 STUDIES: Pubis abdominal x-ray demonstrated nonspecific bowel gas pattern. No evidence of bowel obstruction. Gas within the colon. ASSESSMENT: 1. Acute diverticulitis 2. Intolerance to flagyl PLAN: 1. Increase Protonix to 40 mg BID 2. Start Gas-x 3. Continue ice chips and popsicles pending resolution of abdominal pain. Objective - Vital Signs Vital signs: Vital Signs Temp 98.9 F 03/08/20 07:00 Pulse 87 03/08/20 07:00 Resp 16 03/08/20 07:00 BP 135/74 03/08/20 07:00 Pulse Ox 92 L 03/08/20 07:00 Intake & Output 03/07/20 03/08/20 03/08/20 19:59 06:59 18:59 Intake Total Balance Intake: Intake, IV Titration Amount Piperacillin-Tazobactam 3 .375 gm In Sodium Chloride 0.9% 100 ml @ 25 mls/hr IVPB Q8H TO Rx#: [id number] Sodium Chloride 0.9% 1, 000 ml @ 130 mls/hr IV . Q7H42M TO Rx#:[id number] Other: # Voids - Labs CBC & Chem 7: 03/08/20 05:57 03/07/20 06:29 Labs: Abnormal Lab Results - Last 24 Hours (Table) 03/08/20 03/08/20 Range/Units 05:57 05:57 RBC 4.05 L (4.30-5.90) m/uL Hgb 11.9 L (13.0-17.5) gm/dL Hct 37.1 L (39.0-53.0) % Lymphocytes # 0.8 L (1.0-4.8) k/uL Procalcitonin 1.96 H (0.02-0.09) ng/mL Microbiology - Last 24 Hours (Table) 03/05/20 02:11 Blood Culture - Preliminary Blood No Growth after 72 hours
[2020-03-08] MEDS ORDERED: IOPAMIDOL CONTRAST (ORAL USE) VIAL PO PRN (15:48)
--- NOTE | 2020-03-08 16:06 | P.PN ---
Progress Note - Text Progress Note Date: 03/08/20 - Chief Complaint Abdominal pain History of presenting complaint: This is a pleasant 54 year patient . Patient's had one prior by bout of diverticulitis few years ago. For last few days has been feeling a bit queasy the left lower abdomen. Symptoms progressively got worse. The day prior to admission pain progressed to be rather severe today left lower abdomen. There no significant nausea. No vomiting. Fever and chills were present. Patient normally has one bowel movement every day or every other day. Presented to the ER. Was febrile septic. It showed few gas bubbles around the tick and sigmoid in the area of inflammation. Patient admitted with IV fluids antibiotics. On a clear liquid diet. Significant pain. today-had one loose stool. Abdominal pain still present. Feels distended. No nausea vomiting. Patient's is nothing by mouth except ice chips and popsicles Review of systems: Was done for constitutional, cardiovascular, GI, pulmonary. relevant finding as above Active Medications Hydrocodone Bitart/Acetaminophen (Hydrocodone/Apap 5-325mg 1 Each Tab) 1 each PO Q4HR PRN PRN Reason: Moderate Pain Last Admin: 03/08/20 09:25 Dose: 1 each Documented by: Enoxaparin Sodium (Enoxaparin 40 Mg/0.4 Ml Syringe) 40 mg SQ [facility]ILY [facility] Hydromorphone HCl (Hydromorphone 1 Mg/Ml 1 Ml Syringe) 1 mg IVP Q3HR PRN PRN Reason: Moderate to Severe Pain Sodium Chloride (Saline 0.9%) 1,000 mls @ 130 mls/hr IV .Q7H42M [facility] Last Admin: 03/08/20 15:11 Dose: Not Given Documented by: Piperacillin Sod/Tazobactam (Sod 3.375 gm/ Sodium Chloride) 100 mls @ 25 mls/hr IVPB Q8H [facility] Last Admin: 03/08/20 09:26 Dose: 25 mls/hr Documented by: Iopamidol (Iopamidol Contrast (Oral Use) Vial) 30 ml PO ONCE PRN PRN Reason: CT Scan Stop: 03/09/20 15:58 Ketorolac Tromethamine (Ketorolac 15 Mg/Ml 1 Ml Vial) 15 mg IVP Q6HR [facility] Stop: 03/10/20 18:01 Last Admin: 03/08/20 12:58 Dose: 15 mg Documented by: Naloxone HCl (Naloxone 0.4 Mg/Ml 1 Ml Vial) 0.2 mg IV Q2M PRN PRN Reason: Opioid Reversal Ondansetron HCl (Ondansetron 4 Mg/2 Ml Vial) 4 mg IVP Q8HR PRN PRN Reason: Nausea And Vomiting Pantoprazole Sodium (Pantoprazole 40 Mg/10 Ml Vial) 40 mg IVP BID TO Simethicone (Simethicone 80 Mg Chewable) 160 mg PO TID TO Physical examination: VITAL SIGNS: 98.3, 87, 16, 132/78, 93% room air GENERAL: Sitting up in a chair, awake EYES: Pupils equal. Conjunctiva normal. NECK: JVD not raised; masses not palpable. HEART: First and second heart sounds are normal; no edema. LUNGS: Respiratory rate normal; clear to auscultation. ABDOMEN: Soft, distended, tenderness in the left lower quadrant , liver spleen not palpable, no masses palpable. PSYCH: Alert and oriented x3; mood and affect normal. INVESTIGATIONS, reviewed in the clinical context: White count 7.5 hemoglobin 11.9 platelets 2:30 pro-calcitonin 1.96 Previous testing White count 13.3 hemoglobin 14.6 left shift, potassium 4.3 creatinine 1.09 lactic acid 2.2 Computed tomography scan of the abdomen-sigmoid dermatitis with few gas bubbles Assessment: -Acute severe sigmoid diverticular disease with possibly localized perforation contained-slow to respond. Patient complaining of distention today. -Sepsis from above-slow to respond -Lactic acidosis from above Plan: Patient on IV Zosyn. We'll do computed tomography scan of the abdomen with contrast in the morning and a plain x-ray. Patient remains nothing by mouth. Thank you Dr. Craft
[2020-03-08] MEDS: SIMETHICONE 80 MG CHEWABLE PO SCH ×2 (16:26→20:50)
[2020-03-08] MEDS: PANTOPRAZOLE 40 MG/10 ML VIAL IVP SCH (20:50)
[2020-03-09] MEDS: SODIUM CHLORIDE 0.9% 1,000 ML IV SCH ×4 (01:11→20:52)
[2020-03-09] MEDS: PIPERACILLIN-TAZOBACTAM 3.375 GM in SODIUM CHLORIDE 0.9% 100 ML IVPB SCH ×3 (02:45→17:26)
[2020-03-09] MEDS: HYDROcodone/APAP 5-325MG 1 EACH TAB PO PRN (02:47)
[2020-03-09 02:56] LABS: Glucose,Whole Blood 93 mg/dL (75-99)
[2020-03-09] MEDS: KETOROLAC 15 MG/ML 1 ML VIAL IVP SCH ×2 (05:33→11:51)
[2020-03-09] MEDS: PANTOPRAZOLE 40 MG/10 ML VIAL IVP SCH ×2 (08:58→20:51)
[2020-03-09] MEDS: ENOXAPARIN 40 MG/0.4 ML SYRINGE SQ SCH (08:58)
[2020-03-09] MEDS: SIMETHICONE 80 MG CHEWABLE PO SCH ×3 (08:59→23:10)
[2020-03-09] MEDS ORDERED: FUROSEMIDE 10 MG/ML 2 ML VIAL IV ONE (09:00)
--- NOTE | 2020-03-09 09:02 | P.PN ---
Subjective Progress Note Date: 03/09/20 Principal diagnosis: Diverticulitis Patient states that over the weekend he became more distended. Feels like his abdomen is tight. His lower abdominal pain has improved in fact he states his diverticulitis pain is gone. Low-grade fever 100.1. No labs today. No tachycardia. CAT scan abdomen was ordered by Dr. Montilla. Objective - Vital Signs Vital signs: Vital Signs Temp 98.6 F 03/09/20 07:00 Pulse 90 03/09/20 07:00 Resp 16 03/09/20 07:00 BP 134/80 03/09/20 07:00 Pulse Ox 93 L 03/09/20 07:00 Intake & Output 03/08/20 03/09/20 03/09/20 18:59 06:59 18:59 Intake Total 1240 Balance 1240 Intake: Intake, IV Titration 1240 Amount ACETAMINOPHEN IV (For NPO 100 ) 1,000 mg In Empty Bag 1 bag @ 400 mls/hr IVPB Q6HR TO Rx#:[id number] Piperacillin-Tazobactam 3 100 .375 gm In Sodium Chloride 0.9% 100 ml @ 25 mls/hr IVPB Q8H TO Rx#: [id number] Sodium Chloride 0.9% 1, 1040 000 ml @ 130 mls/hr IV . Q7H42M TO Rx#:[id number] Other: # Voids 1 1 # Bowel Movements 1 - Exam Abdomen: Soft, distended, some tympany, mild diffuse tenderness, significantly less tenderness lower abdomen - Labs CBC & Chem 7: 03/08/20 05:57 03/07/20 06:29 Labs: Abnormal Lab Results - Last 24 Hours (Table) 03/08/20 Range/Units 05:57 Procalcitonin 1.96 H (0.02-0.09) ng/mL Microbiology - Last 24 Hours (Table) 03/05/20 02:11 Blood Culture - Preliminary Blood No Growth after 96 hours Assessment and Plan (1) Sigmoid diverticulitis Narrative/Plan: Patient with increased abdominal bloating. Possibly on the basis of ileus secondary to underlying diverticulitis. Check repeat labs at this time. Agree with repeat CAT scan. We'll add CT pelvis and we'll perform the study without oral contrast using IV contrast only given the patient's nausea and distention. Further recommendations will follow. Continue IV antibiotics for now. Current Visit: Yes Status: Acute Code(s): K57.32 - DVTRCLI OF LG INT W/O PERFORATION OR ABSCESS W/O BLEEDING SNOMED Code(s): 012342033
[2020-03-09 09:52] LABS: Basophils % (A) 0 %; Eosinophils # (A) 0.1 k/uL (0-0.7); Eosinophils % (A) 1 %; HCT 43.7 % (39.0-53.0); HGB 13.8 gm/dL (13.0-17.5); Lymphocytes % (A) 10 %; MCH 29.2 pg (25.0-35.0); MCHC 31.6 g/dL (31.0-37.0); MCV 92.1 fL (80.0-100.0); Monocytes # (A) 0.4 k/uL (0-1.0); Monocytes % (A) 4 %; Neutrophils # (A) 8.3 k/uL (1.3-7.7); Neutrophils % (A) 84 %; Platelet Count 348 k/uL (150-450); RBC 4.75 m/uL (4.30-5.90); RDW 13.5 % (11.5-15.5); WBC 9.9 k/uL (3.8-10.6)
[2020-03-09 10:06] LABS: ALT 22 U/L (4-49); AST 32 U/L (17-59); African American GFR (CKD) 71 (>60 ml/min/1.73 sqM); Albumin 3.1 g/dL (3.5-5.0); Albumin/Globulin Ratio 1.1; Alkaline Phosphatase 51 U/L (38-126); Anion Gap 10 mmol/L; Blood Urea Nitrogen 15 mg/dL (9-20); Calcium 8.7 mg/dL (8.4-10.2); Carbon Dioxide 24 mmol/L (22-30); Chloride 108 mmol/L (98-107); Globulin 2.8 g/dL; Glucose 115 mg/dL (74-99); Non-African American GFR(CKD) 61 (>60 ml/min/1.73 sqM); Potassium 3.9 mmol/L (3.5-5.1); Sodium 142 mmol/L (137-145); Total Bilirubin 0.8 mg/dL (0.2-1.3); Total Protein 5.9 g/dL (6.3-8.2)
--- NOTE | 2020-03-09 10:51 | P.PN ---
Progress Note - Text Progress Note Date: 03/09/20 Patient's CAT scan was reviewed. Patient with evidence of ileus with distended stomach and small bowel loops. Patient has free fluid as well as multiple foci of free intraperitoneal air at this point. CAT scan findings suggesting progression of perforation with peritonitis. Clinical scenario discussed in detail with the patient. Recommend exploratory laparotomy with washout, possible partial colectomy, possible end colostomy based on intraoperative findings. Patient is agreeable. Risks of bleeding, infection, abscess, hernia, ostomy complications, bladder bowel and ureteral injury, sepsis, anesthesia complications reviewed. He understands and wishes to proceed.
--- NOTE | 2020-03-09 11:13 | CT ---
EXAMINATION TYPE: CT abdomen pelvis w con DATE OF EXAM: 03/09/2020 COMPARISON: CT abdomen and pelvis 4 days ago HISTORY: Diverticulitis CT DLP: 1571.4 mGycm, Automated Exposure Control for Dose Reduction was Utilized. CONTRAST: CT scan of the abdomen and pelvis is performed without oral but with IV Contrast, patient injected wi th 100 mL of Isovue 300. FINDINGS: LUNG BASES: There are new at least small bilateral pleural effusions with associated compressive atel ectasis. LIVER/GB: Dependent density in gallbladder new from prior study presumed vicarious excretion. New mil d to moderate ascites surrounds the liver. PANCREAS: No significant abnormality is seen. SPLEEN: New Mild perisplenic ascites. ADRENALS: No significant abnormality is seen. KIDNEYS: Horseshoe type kidney. Symmetric respiratory uptake and excretion without hydronephrosis. BOWEL: Slightly suboptimal evaluation of bowel without enteric contrast. There is mild distention of stomach with air-fluid level. There is fluid-filled prominence of the second through portion of the d uodenal sweep. There are fluid-filled small bowel loops with air-fluid levels which are prominent, so me are abnormally dilated up to 3.9 cm. There is nondistended fluid filled terminal ileum. There is p oorly distended transverse and left colon. Scattered colonic diverticula. Diverticula in the sigmoid colon remain present. Ill-defined fluid and fat stranding of proximal sigmoid colon in the left pelvi s axial image 75. Pneumoperitoneum is present particularly upper to midabdomen with scattered foci of air. PROSTATE/SEMINAL VESICLES: Prostate gland normal in size with scattered central calcifications. Adjac ent scattered right-sided calcified pelvic phleboliths. LYMPH NODES: No greater than 1cm abdominal or pelvic lymph nodes are appreciated. OSSEOUS STRUCTURES: No significant abnormality is seen. OTHER: No significant additional abnormality is seen. IMPRESSION: Persistent sigmoid colonic diverticulitis. No pneumoperitoneum noted. New distal small alicia wel obstruction may be on basis of inflammatory change related to acute diverticulitis. Results communicated to patient's nurse via telephone at time of dictation. A Document Only message has been documented for Reuben Montemayor MD in the [employer] system on 03/09/2020 11:10 AM, Message ID [id number].
[2020-03-09 14:50] VITALS: BMI 31.0
[2020-03-09] MEDS: HYDROmorphone 1 MG/ML 1 ML SYRINGE IVP PRN (17:26)
--- NOTE | 2020-03-09 19:46 | P.PN ---
Progress Note - Text Progress Note Date: 03/09/20 - Chief Complaint Abdominal pain History of presenting complaint: This is a pleasant 54 year patient . Patient's had one prior by bout of diverticulitis few years ago. For last few days has been feeling a bit queasy the left lower abdomen. Symptoms progressively got worse. The day prior to admission pain progressed to be rather severe today left lower abdomen. There no significant nausea. No vomiting. Fever and chills were present. Patient normally has one bowel movement every day or every other day. Presented to the ER. Was febrile septic. It showed few gas bubbles around the tick and sigmoid in the area of inflammation. Patient admitted with IV fluids antibiotics. On a clear liquid diet. Significant pain. today-computed tomography scan of the abdomen showing free air, possible bowel obstruction. Abdomen distended. Some nausea. at the bedside. Patient be going down to the operating room later today. Review of systems: Was done for constitutional, cardiovascular, GI, pulmonary. relevant finding as above Active Medications Hydrocodone Bitart/Acetaminophen (Hydrocodone/Apap 5-325mg 1 Each Tab) 1 each PO Q4HR PRN PRN Reason: Moderate Pain Last Admin: 03/09/20 02:47 Dose: 1 each Documented by: Enoxaparin Sodium (Enoxaparin 40 Mg/0.4 Ml Syringe) 40 mg SQ DAILY [facility] Last Admin: 03/09/20 08:58 Dose: 40 mg Documented by: Hydromorphone HCl (Hydromorphone 1 Mg/Ml 1 Ml Syringe) 1 mg IVP Q3HR PRN PRN Reason: Moderate to Severe Pain Last Admin: 03/09/20 17:26 Dose: 1 mg Documented by: Sodium Chloride (Saline 0.9%) 1,000 mls @ 50 mls/hr IV .Q20H [facility] Last Admin: 03/09/20 13:43 Dose: 50 mls/hr Documented by: Piperacillin Sod/Tazobactam (Sod 3.375 gm/ Sodium Chloride) 100 mls @ 25 mls/hr IVPB Q8H [facility] Last Admin: 03/09/20 17:26 Dose: 25 mls/hr Documented by: Naloxone HCl (Naloxone 0.4 Mg/Ml 1 Ml Vial) 0.2 mg IV Q2M PRN PRN Reason: Opioid Reversal Ondansetron HCl (Ondansetron 4 Mg/2 Ml Vial) 4 mg IVP Q8HR PRN PRN Reason: Nausea And Vomiting Pantoprazole Sodium (Pantoprazole 40 Mg/10 Ml Vial) 40 mg IVP BID [facility] Last Admin: 03/09/20 08:58 Dose: 40 mg Documented by: Simethicone (Simethicone 80 Mg Chewable) 160 mg PO TID [facility] Last Admin: 03/09/20 16:02 Dose: Not Given Documented by: Physical examination: VITAL SIGNS: 98.3, 89, 18, 143 with 85, 98% room air GENERAL: Sitting up in a chair, awake EYES: Pupils equal. Conjunctiva normal. NECK: JVD not raised; masses not palpable. HEART: First and second heart sounds are normal; no edema. LUNGS: Respiratory rate normal; clear to auscultation. ABDOMEN: Soft, distended, some tenderness, liver spleen not palpable, no masses palpable. PSYCH: Alert and oriented x3; mood and affect anxious. INVESTIGATIONS, reviewed in the clinical context: White count 9.9 hemoglobin 13.8 potassium 3.9 creatinine 1.30 Computed tomography scan of the abdomen shows mild distention of the stomach with air-fluid level. Fluid-filled small bowel loops with air-fluid levels. Up to 3.9 cm. Poorly distended transverse and left colon. Ill-defined fluid and fat stranding of proximal sigmoid colon the left pelvis area. Pneumoperitoneum present. Previous testing White count 13.3 hemoglobin 14.6 left shift, potassium 4.3 creatinine 1.09 lactic acid 2.2 Computed tomography scan of the abdomen-sigmoid dermatitis with few gas bubbles pro-calcitonin 1.96 Assessment: -Acute severe sigmoid diverticular disease with possibly localized perforation contained-clinically and radiologically worsening. Now with free air.. With element of bowel obstruction.. -Secondary peritonitis from perforation -Sepsis from above-slow to respond -Lactic acidosis from above -Acute kidney injury likely from sepsis Plan: Continue IV Zosyn. Discussed with patient and this afternoon. Later this afternoon discussed with Dr. Craft. Patient is pending to go to the OR. Increase IV fluids. Thank you Dr. Craft
[2020-03-09] MEDS ORDERED: GLYCOPYRROLATE 0.2 MG/ML 2 ML VIAL ONE (23:07)
[2020-03-09] MEDS ORDERED: ONDANSETRON 4 MG/2 ML VIAL ONE (23:07)
[2020-03-09] MEDS ORDERED: SUCCINYLCHOLINE CHLORIDE 100 MG/5 ML SYR IV ONE (23:07)
[2020-03-09] MEDS ORDERED: PROPOFOL 10 MG/ML 20 ML VIAL IV ONE (23:07)
[2020-03-09] MEDS ORDERED: HYDROmorphone (PF) 1 MG/ML ONE (23:07)
[2020-03-09] MEDS ORDERED: NEOSTIGMINE 1 MG/ML 10 ML VIAL ONE (23:07)
[2020-03-09] MEDS ORDERED: IV FLUID CONTINUATION 1,000 ML IV ONE (23:07)
[2020-03-09] MEDS ORDERED: fentaNYL (PF) 50 MCG/ML 2 ML AMP ONE (23:07)
[2020-03-09] MEDS ORDERED: ROCURONIUM 10 MG/ML (10 ML VIAL) IV ONE (23:07)
[2020-03-09] MEDS ORDERED: DEXAMETHASONE SOD PHOSPHATE 10 MG/ML 1 ML VIAL ONE (23:07)
[2020-03-09] MEDS ORDERED: MIDAZOLAM 2 MG/2 ML VIAL ONE (23:07)
[2020-03-09] MEDS ORDERED: LACTATED RINGERS 1,000 ML IV ONE (23:20)
[2020-03-09] MEDS ORDERED: SODIUM CHLORIDE 0.9% 100 ML with ceFAZolin 2,000 MG IV ONE ×2 (23:30)
[2020-03-10] MEDS ORDERED: LACTATED RINGERS 1,000 ML IV ONE (00:17)
[2020-03-10] MEDS ORDERED: METOCLOPRAMIDE 5 MG/ML 2 ML VIAL IVP PRN (01:31)
--- NOTE | 2020-03-10 01:31 | P.OP ---
Date of Procedure: 03/10/20 Procedure(s) Performed: PREOPERATIVE DIAGNOSIS: Perforated sigmoid diverticulitis with ileus POSTOPERATIVE DIAGNOSIS: Same PROCEDURE: Sigmoid colectomy with end colostomy SURGEON: Sim EBL: 50 mL ANESTHESIA: General COMPLICATIONS: None OPERATIVE PROCEDURE: Patient place in the operative table in the supine position. The patient was placed under general anesthesia. The abdomen was prepped and draped in usual sterile fashion. A vertical incision was made extending from the suprapubic region above the umbilicus. The fascia was divided as well. The patient had a previous umbilical hernia repair with a small piece of preperitoneal mesh. This was divided sharply at that location. Upon entrance into the peritoneal cavity seropurulent fluid was identified. The Bookwalter retractor was utilized. There were small bowel loops that were gently adherence to the inflamed sigmoid colon loop. These were able to be lysed quite easily. The patient's bowel was significantly distended. We were able to milk the small bowel contents back to the stomach where the preoperatively placed nasogastric tube was located. During the procedure a total of 2 L of succus was evacuated through the nasogastric tube. Large volume of air was also present during that gastric aspiration. The sigmoid colon was then inspected. It was significantly inflamed. The site of perforation was identified. I divided the sigmoid colon proximal to this using a linear 75 stapler. The mesentery was divided at that time using the LigaSure device. Beyond the inflamed segment I divided the distal sigmoid colon using a green load contour stapler. The sigmoid colon was then mobilized further by dividing a portion of mesentery proximally and also dividing the white line of Toldt. Once I had enough length on the colon the abdomen was copiously irrigated with 3 L of saline. No further purulence was encountered at that time. A circular incision was made in the left midabdomen. Dissection through the subcutaneous fat and fascia took place using electrocautery. I bluntly entered the perineal cavity and this was further bluntly opened. The bowel was brought out through this defect in the left midabdomen. The midline fascia was then reapproximated using 2 separate double-stranded #1 PDS sutures. The subcutaneous tissues were irrigated. The skin was then closed using sudarshan. 3 separate sites were left open along the midline incision for Telfa wick placement. The ostomy was then addressed. A portion of the pericolonic fat was removed using the LigaSure device. The staple line was then removed using electrocautery. The ostomy was then matured in a yurok fashion using interrupted 3-0 Vicryl sutures. An ostomy appliance was then applied. Sterile dressings were then applied to the midline incision. DISPOSITION: Stable to recovery room
[2020-03-10] MEDS ORDERED: ALBUMIN HUMAN 5% 250 ML in EMPTY BAG 1 BAG IVPB STA (01:44)
[2020-03-10] MEDS ORDERED: HYDROmorphone 1 MG/ML 1 ML SYRINGE IVP ONE ×2 (01:47→01:53)
[2020-03-10] MEDS ORDERED: hydrALAZINE HCL 20 MG/ML 1 ML VIAL IVP ONE (01:57)
[2020-03-10] MEDS: HYDROmorphone 1 MG/ML 1 ML SYRINGE IVP PRN ×3 (02:35→13:27)
[2020-03-10] MEDS: PIPERACILLIN-TAZOBACTAM 3.375 GM in SODIUM CHLORIDE 0.9% 100 ML IVPB SCH ×3 (02:36→18:04)
[2020-03-10] MEDS: D5-0.45% NACL WITH KCL 20MEQ/L 1,000 ML IV SCH ×3 (03:00→17:25)
[2020-03-10] MEDS: SODIUM CHLORIDE 0.9% 1,000 ML IV SCH ×3 (03:18→20:31)
[2020-03-10 06:50] LABS: HCT 37.8 % (39.0-53.0); HGB 11.7 gm/dL (13.0-17.5); Hypochromasia Slight; MCH 28.9 pg (25.0-35.0); Platelet Count 345 k/uL (150-450); RBC 4.07 m/uL (4.30-5.90); RDW 13.7 % (11.5-15.5); WBC 13.6 k/uL (3.8-10.6)
[2020-03-10] MEDS: ENOXAPARIN 40 MG/0.4 ML SYRINGE SQ SCH (08:31)
[2020-03-10] MEDS: metroNIDAZOLE-NS PMX 500 MG in SALINE 1 100ML.BAG IVPB SCH ×2 (08:31→17:24)
[2020-03-10] MEDS: PANTOPRAZOLE 40 MG/10 ML VIAL IVP SCH ×2 (08:38→20:51)
[2020-03-10] MEDS ORDERED: FAMOTIDINE 20 MG/2 ML VIAL IV SCH (09:00)
[2020-03-10 09:06] LABS: African American GFR (CKD) 77.9 (60.0-200.0); Anion Gap 9.4 mmol/L (4.00-12.00); Calcium 7.8 mg/dL (8.7-10.3); Carbon Dioxide 25.6 mmol/L (21.6-31.8); Non-African American GFR(CKD) 67.2 (60.0-200.0); Potassium 4.5 mmol/L (3.5-5.5)
[2020-03-10] MEDS: SIMETHICONE 80 MG CHEWABLE PO SCH ×3 (10:28→20:15)
--- NOTE | 2020-03-10 13:33 | XR ---
EXAMINATION TYPE: XR chest 1V portable DATE OF EXAM: 03/10/2020 COMPARISON: Prior CT 03/09/2020 HISTORY: NG tube placement TECHNIQUE: Single frontal view of the chest is obtained. FINDINGS: NG tube is present, distal tip is near the gastroesophageal junction, side-port within the thoracic esophagus. Bibasilar density persists. Heart size may appear prominently due to technique. No evident pneumothorax. IMPRESSION: NG tube with the distal tip near the gastroesophageal junction level as described. Basil ar effusions and associated atelectasis, correlate to exclude pneumonia.
--- NOTE | 2020-03-10 13:39 | P.PN ---
Subjective Progress Note Date: 03/10/20 Principal diagnosis: Diverticulitis Patient feels better today. His pain is improved. He is afebrile. White blood cell count 13.6. Good urine output overnight. Nasogastric tube scant. X-ray was obtained to check the nasogastric tube positioning after he felt that had slipped out slightly. X-ray shows the nasogastric tube tip is right at the GE junction. No ostomy function. Objective - Vital Signs Vital signs: Vital Signs Temp 97.8 F 03/10/20 12:34 Pulse 92 03/10/20 13:12 Resp 25 H 03/10/20 12:34 BP 142/87 03/10/20 12:34 Pulse Ox 95 03/10/20 09:12 Intake & Output 03/09/20 03/10/20 03/10/20 18:59 06:59 18:59 Intake Total 2100 375 Output Total 2300 Balance -200 375 Weight 95.254 kg Intake: IV 2100 375 Invasive Line 1 375 Output: Gastric Drainage 2000 Urine 250 Estimated Blood Loss 50 Other: Voiding Method Indwelling Catheter Indwelling Catheter # Voids 5 1 # Bowel Movements 2 - Exam Abdomen: Soft, mild distention, mild tenderness, dressing clean and dry, ostomy pink - Labs CBC & Chem 7: 03/10/20 06:04 03/10/20 06:04 Labs: Abnormal Lab Results - Last 24 Hours (Table) 03/10/20 03/10/20 Range/Units 06:04 06:04 WBC 13.6 H (3.8-10.6) k/uL RBC 4.07 L (4.30-5.90) m/uL Hgb 11.7 L (13.0-17.5) gm/dL Hct 37.8 L (39.0-53.0) % Glucose 165 H (70-110) mg/dL Calcium 7.8 L (8.7-10.3) mg/dL Microbiology - Last 24 Hours (Table) 03/05/20 02:11 Blood Culture - Preliminary Blood No Growth after 120 hours Assessment and Plan (1) Sigmoid diverticulitis Narrative/Plan: Overall patient improving. Continue antibiotics. Continue nothing by mouth with nasogastric tube to suction. We'll advance nasogastric tube. Recheck labs tomorrow. Gradually increase activity. Current Visit: Yes Status: Acute Code(s): K57.32 - DVTRCLI OF LG INT W/O PERFORATION OR ABSCESS W/O BLEEDING SNOMED Code(s): 576462610
[2020-03-10] MEDS ORDERED: FUROSEMIDE 10 MG/ML 2 ML VIAL IV ONE (17:00)
[2020-03-10] MEDS: KETOROLAC 15 MG/ML 1 ML VIAL IVP SCH (17:23)
--- NOTE | 2020-03-10 17:27 | US ---
EXAMINATION TYPE: US venous doppler duplex LE DATE OF EXAM: 03/10/2020 5:19 PM COMPARISON: NONE CLINICAL HISTORY: rule out dvt. Bilateral leg swelling, no known prior DVT SIDE PERFORMED: Bilateral TECHNIQUE: The lower extremity deep venous system is examined utilizing real time linear array sonog frederick with graded compression, doppler sonography and color-flow sonography. VESSELS IMAGED: External Iliac Vein (EIV) Common Femoral Vein Deep Femoral Vein Greater Saphenous Vein * Femoral Vein Popliteal Vein Small Saphenous Vein * Proximal Calf Veins (* superficial vessels) Right Leg: Negative for DVT Left Leg: Negative for DVT IMPRESSION: No evidence of deep vein thrombosis in both legs.
--- NOTE | 2020-03-10 17:47 | P.PN ---
Progress Note - Text Progress Note Date: 03/10/20 - Chief Complaint Abdominal pain History of presenting complaint: This is a pleasant 54 year patient . Patient's had one prior by bout of diverticulitis few years ago. For last few days has been feeling a bit queasy the left lower abdomen. Symptoms progressively got worse. The day prior to admission pain progressed to be rather severe today left lower abdomen. There no significant nausea. No vomiting. Fever and chills were present. Patient normally has one bowel movement every day or every other day. Presented to the ER. Was febrile septic. It showed few gas bubbles around the tick and sigmoid in the area of inflammation. Patient admitted with IV fluids antibiotics. On a clear liquid diet. Significant pain.subsequently had abdominal distention. computed tomography scan of the abdomen showing free air, possible bowel obstruction. On evening of March 09 patient taken to the operating room- patient found to have a perforated sigmoid diverticular disease with ileus. Sigmoid colectomy with end colostomy was done. today- NG tube in place. Pain control. No nausea vomiting. Awake. Review of systems: Was done for constitutional, cardiovascular, GI, pulmonary. relevant finding as above Active Medications Hydrocodone Bitart/Acetaminophen (Hydrocodone/Apap 5-325mg 1 Each Tab) 1 each PO Q4HR PRN PRN Reason: Moderate Pain Last Admin: 03/09/20 02:47 Dose: 1 each Documented by: Benzocaine/Menthol (Benzocaine/Menthol Lozeng 1 Each Lozenge) 1 each MUCOUS MEM Q1HR PRN PRN Reason: Sore Throat Enoxaparin Sodium (Enoxaparin 40 Mg/0.4 Ml Syringe) 40 mg SQ DAILY [facility] Last Admin: 03/10/20 08:31 Dose: 40 mg Documented by: Hydromorphone HCl (Hydromorphone 1 Mg/Ml 1 Ml Syringe) 1 mg IVP Q3HR PRN PRN Reason: Moderate to Severe Pain Last Admin: 03/10/20 13:27 Dose: 1 mg Documented by: Piperacillin Sod/Tazobactam (Sod 3.375 gm/ Sodium Chloride) 100 mls @ 25 mls/hr IVPB Q8H [facility] Last Admin: 03/10/20 10:47 Dose: 25 mls/hr Documented by: Sodium Chloride (Saline 0.9%) 1,000 mls @ 130 mls/hr IV .Q7H42M [facility] Last Admin: 03/10/20 10:32 Dose: Not Given Documented by: Potassium Chloride/Dextrose/Sod Cl (D5%-1/2ns-Kcl 20 Meq/L Iv Solution) 1,000 mls @ 75 mls/hr IV .[id number] [facility] Last Admin: 03/10/20 17:25 Dose: 75 mls/hr Documented by: Metronidazole 500 mg/ IV (Solution) 100 mls @ 100 mls/hr IVPB Q8HR [facility] Last Admin: 03/10/20 17:24 Dose: 100 mls/hr Documented by: Ketorolac Tromethamine (Ketorolac 15 Mg/Ml 1 Ml Vial) 15 mg IVP Q6HR [facility] Stop: 03/15/20 18:01 Last Admin: 03/10/20 17:23 Dose: 15 mg Documented by: Metoclopramide HCl (Metoclopramide 5 Mg/Ml 2 Ml Vial) 10 mg IVP Q6HR PRN PRN Reason: Nausea and Vomiting Naloxone HCl (Naloxone 0.4 Mg/Ml 1 Ml Vial) 0.2 mg IV Q2M PRN PRN Reason: Opioid Reversal Ondansetron HCl (Ondansetron 4 Mg/2 Ml Vial) 4 mg IVP Q8HR PRN PRN Reason: Nausea And Vomiting Pantoprazole Sodium (Pantoprazole 40 Mg/10 Ml Vial) 40 mg IVP BID [facility] Last Admin: 03/10/20 08:38 Dose: 40 mg Documented by: Simethicone (Simethicone 80 Mg Chewable) 160 mg PO TID [facility] Last Admin: 03/10/20 17:19 Dose: Not Given Documented by: Physical examination: VITAL SIGNS: 97.8, 75, 16, 06/02/1994, 96% room air GENERAL: Laying in bed, awake, tired HEENT-NG tube EYES: Pupils equal. Conjunctiva normal. NECK: JVD not raised; masses not palpable. HEART: First and second heart sounds are normal; no edema. LUNGS: Respiratory rate normal; clear to auscultation. ABDOMEN: Soft, some tenderness, colostomy bag, empty, liver spleen not palpable, no masses palpable. PSYCH: Alert and oriented x3; mood and affect anxious. INVESTIGATIONS, reviewed in the clinical context: White count 13.6 hemoglobin 11.7 potassium 4.5 creatinine 1.2 Previous testing White count 13.3 hemoglobin 14.6 left shift, potassium 4.3 creatinine 1.09 lactic acid 2.2 Computed tomography scan of the abdomen March 05-sigmoid dermatitis with few gas bubbles pro-calcitonin 1.96 Computed tomography scan of the abdomen-March 09 shows mild distention of the stomach with air-fluid level. Fluid-filled small bowel loops with air-fluid levels. Up to 3.9 cm. Poorly distended transverse and left colon. Ill-defined fluid and fat stranding of proximal sigmoid colon the left pelvis area. Pneumoperitoneum present. Assessment: -Acute severe sigmoid diverticular disease with perforation ; followed by ileus and sigmoid colectomy. End colostomy -Secondary peritonitis from perforation -Sepsis from above- -Lactic acidosis from above -Acute kidney injury likely from sepsis -Hypoalbuminemia-acute phase reactant Plan: Continue IV Zosyn. Flagyl added. IV fluids. Discussed with patient. And Dr. Craft. Thank you Dr. Craft
[2020-03-11] MEDS: KETOROLAC 15 MG/ML 1 ML VIAL IVP SCH ×5 (00:11→23:22)
[2020-03-11] MEDS: metroNIDAZOLE-NS PMX 500 MG in SALINE 1 100ML.BAG IVPB SCH ×4 (00:12→23:23)
[2020-03-11] MEDS: SODIUM CHLORIDE 0.9% 1,000 ML IV SCH ×3 (01:31→18:15)
[2020-03-11] MEDS: PIPERACILLIN-TAZOBACTAM 3.375 GM in SODIUM CHLORIDE 0.9% 100 ML IVPB SCH ×3 (01:37→18:14)
[2020-03-11] MEDS: ENOXAPARIN 40 MG/0.4 ML SYRINGE SQ SCH (07:55)
[2020-03-11] MEDS: PANTOPRAZOLE 40 MG/10 ML VIAL IVP SCH ×2 (07:55→19:52)
[2020-03-11] MEDS: HYDROmorphone 1 MG/ML 1 ML SYRINGE IVP PRN (07:56)
[2020-03-11] MEDS: BENZOCAINE/MENTHOL LOZENG 1 EACH LOZENGE MUCOUS MEM PRN ×2 (09:34→19:51)
[2020-03-11] MEDS: D5-0.45% NACL WITH KCL 20MEQ/L 1,000 ML IV SCH ×2 (10:24→19:56)
[2020-03-11] MEDS: SIMETHICONE 80 MG CHEWABLE PO SCH ×3 (11:13→23:22)
--- NOTE | 2020-03-11 11:48 | P.PN ---
Subjective Progress Note Date: 03/11/20 Principal diagnosis: Diverticulitis Patient states his pain is improving. No bowel function through the ostomy. No nausea or vomiting. Nasogastric tube with bilious output. Patient still having leg swelling and some scrotal swelling. Doppler ordered which shows no evidence of DVT. Received 1 dose of Lasix yesterday evening. Some hematuria this morning. Consult urology pending. Objective - Vital Signs Vital signs: Vital Signs Temp 98 F 03/11/20 07:39 Pulse 81 03/11/20 07:39 Resp 14 03/11/20 07:39 BP 159/93 03/11/20 07:39 Pulse Ox 94 L 03/11/20 01:45 Intake & Output 03/10/20 03/11/20 03/11/20 18:59 06:59 18:59 Intake Total 500 Output Total 300 700 Balance 200 -700 Intake: IV 500 Invasive Line 1 500 Output: Urine 300 700 Other: Voiding Method Indwelling Catheter Indwelling Catheter Indwelling Catheter - Exam Abdomen: Soft, distended, incision with dressing intact, ostomy pink, mild tenderness - Labs CBC & Chem 7: 03/10/20 06:04 03/10/20 06:04 Labs: Microbiology - Last 24 Hours (Table) 03/05/20 02:11 Blood Culture - Final Blood No Growth after 144 hours Assessment and Plan (1) Sigmoid diverticulitis Narrative/Plan: Patient overall doing fairly well. Continue antibiotics. Recheck labs tomorrow. Await urology consult. Probably remove Dotson catheter after he is seen by them. Continue increasing activity. Discussed further diuretics with Dr. Montilla. He will addressed with the patient. Patient may require parenteral nutrition. Current Visit: Yes Status: Acute Code(s): K57.32 - DVTRCLI OF LG INT W/O PERFORATION OR ABSCESS W/O BLEEDING SNOMED Code(s): 468686837
[2020-03-11 12:19] LABS: Appearance,Urine Bloody (Clear)
[2020-03-11 12:20] LABS: Color,Urine Red
[2020-03-11 12:24] LABS: Bacteria,Urine Rare /hpf; Mucus,Urine Few /hpf; RBC,Urine >182 /hpf (0-5); WBC,Urine 124 /hpf (0-5)
--- NOTE | 2020-03-11 20:42 | P.GSCN ---
History of Present Illness Consult date: 03/11/20 Reason for Consult: Gross hematuria History of present illness: The patient is a 54-year-old male admitted on 03/05/2020 evaluation of left low er quadrant abdominal pain associated with fever. He was discovered to have acute sigmoid diverticulitis with perforation and underwent sigmoid resection with end colostomy on 02/07. Preoperative CT scan of the abdomen and pelvis with contrast showed horseshoe kidney but no other abnormalities of the urinary system. His urinalysis at the time of admission showed no evidence of hematuria or pyuria. A Dotson catheter was placed at the time of his surgery. Urine was clear until earlier this morning when the patient says that he noted grossly bloody urine in his catheter tubing after he was sitting at the side of the bed. He has no previous history of gross hematuria or urinary tract infection. Prior to being admitted he says that he was voiding every 2-4 hours during the day and occasionally at night. Patient was noted to have some edema of his legs and scrotum yesterday and received a single dose of IV furosemide. He says that his swelling is much worse today. Review of Systems - Constitutional Reports as per HPI, Reports weight gain - Cardiovascular Reports edema, Denies shortness of breath - Gastrointestinal Reports abdominal pain, Reports bloating - Genitourinary Reports as per HPI Past Medical History Additional Past Medical History / Comment(s): Diverticulitis History of Any Multi-Drug Resistant Organisms: None Reported Past Surgical History: Hernia Repair (Umbilical hernia) Past Psychological History: No Psychological Hx Reported Smoking Status: Never smoker Past Alcohol Use History: Occasional Past Drug Use History: None Reported Medications and Allergies Home Medications Medication Instructions Recorded Confirmed Type Aspirin EC [Ecotrin Low Dose] 81 mg PO DAILY 03/05/20 03/05/20 History Cholecalciferol [Vitamin D3 (25 2,000 unit PO DAILY 03/05/20 03/05/20 History Mcg = 1000 Iu)] Glucos Sul 2Kcl/MSM/Chond/C/Mn 1 cap PO DAILY 03/05/20 03/05/20 History [Glucosamine Chondroitin Cap] Omeprazole 20 mg PO DAILY 03/05/20 03/05/20 History Vitamin B Complex 1 cap PO DAILY 03/05/20 03/05/20 History Allergies Allergy/AdvReac Type Severity Reaction Status Date / Time morphine Allergy Anaphylaxis Verified 03/05/20 07:30 Surgical - Exam Vital Signs Temp Pulse Resp BP Pulse Ox 101.8 F H 97 18 138/81 96 03/05/20 01:38 03/05/20 01:38 03/05/20 01:38 03/05/20 01:38 03/05/20 01:38 - General well developed, well nourished, no distress - ENT no hearing loss - Respiratory normal expansion - Abdomen Abdomen: tender, distended Hernia: none - Genitourinary normal penis with no external lesions, testicles non-tender, other (Mild to moderate scrotal edema. Dotson catheter is in place draining blood-tinged urine without clots.) Results - Labs 03/10/20 06:04 03/10/20 06:04 Abnormal Lab Results - Last 24 Hours (Table) 03/11/20 Range/Units 11:50 Urine RBC >182 H (0-5) /hpf Urine WBC 124 H (0-5) /hpf Urine WBC Clumps Moderate H (None) /hpf Urine Bacteria Rare H (None) /hpf Urine Mucus Few H (None) /hpf Microbiology - Last 24 Hours (Table) 03/05/20 02:11 Blood Culture - Final Blood No Growth after 144 hours - Imaging CT scan - abdomen: image reviewed Assessment and Plan (1) Gross hematuria Narrative/Plan: The source of the patient's gross hematuria is probably a combination of catheter irritation and the use of ketorlac for pain control and also Lovenox for DVT prophylaxis. The degree of bleeding is relatively mild as there have been no clots noted in the urine. The hematuria will probably resolve without any specific treatment but if it does not then the Lovenox should be temporarily discontinued. It would be helpful to discontinue the patient's catheter but if he is going to receive IV furosemide it may be better to leave it in until his diuresis has subsided. Current Visit: Yes Status: Acute Code(s): R31.0 - GROSS HEMATURIA SNOMED Code(s): 968318282
--- NOTE | 2020-03-11 23:36 | P.PN ---
Progress Note - Text Progress Note Date: 03/11/20 - Chief Complaint Abdominal pain History of presenting complaint: This is a pleasant 54 year patient . Patient's had one prior by bout of diverticulitis few years ago. For last few days has been feeling a bit queasy the left lower abdomen. Symptoms progressively got worse. The day prior to admission pain progressed to be rather severe today left lower abdomen. There no significant nausea. No vomiting. Fever and chills were present. Patient normally has one bowel movement every day or every other day. Presented to the ER. Was febrile septic. It showed few gas bubbles around the tick and sigmoid in the area of inflammation. Patient admitted with IV fluids antibiotics. On a clear liquid diet. Significant pain.subsequently had abdominal distention. computed tomography scan of the abdomen showing free air, possible bowel obstruction. On evening of March 09 patient taken to the operating room- patient found to have a perforated sigmoid diverticular disease with ileus. Sigmoid colectomy with end colostomy was done. NG tube placed. DVT lower extremities ruled out. today- patient's had swelling of both lower extremity. Scrotal swelling. Has a Dotson catheter NG tube. Review of systems: Was done for constitutional, cardiovascular, GI, pulmonary. relevant finding as above Active Medications Hydrocodone Bitart/Acetaminophen (Hydrocodone/Apap 5-325mg 1 Each Tab) 1 each PO Q4HR PRN PRN Reason: Moderate Pain Last Admin: 03/09/20 02:47 Dose: 1 each Documented by: Benzocaine/Menthol (Benzocaine/Menthol Lozeng 1 Each Lozenge) 1 each MUCOUS MEM Q1HR PRN PRN Reason: Sore Throat Last Admin: 03/11/20 19:51 Dose: 1 each Documented by: Enoxaparin Sodium (Enoxaparin 40 Mg/0.4 Ml Syringe) 40 mg SQ DAILY TO Last Admin: 03/11/20 07:55 Dose: 40 mg Documented by: Hydromorphone HCl (Hydromorphone 1 Mg/Ml 1 Ml Syringe) 1 mg IVP Q3HR PRN PRN Reason: Moderate to Severe Pain Last Admin: 03/11/20 07:56 Dose: 1 mg Documented by: Piperacillin Sod/Tazobactam (Sod 3.375 gm/ Sodium Chloride) 100 mls @ 25 mls/hr IVPB Q8H TO Last Admin: 03/11/20 18:14 Dose: 25 mls/hr Documented by: Sodium Chloride (Saline 0.9%) 1,000 mls @ 130 mls/hr IV .[id number] [facility] Last Admin: 03/11/20 18:15 Dose: Not Given Documented by: Potassium Chloride/Dextrose/Sod Cl (D5%-1/2ns-Kcl 20 Meq/L Iv Solution) 1,000 mls @ 75 mls/hr IV .[id number] [facility] Last Admin: 03/11/20 19:56 Dose: 75 mls/hr Documented by: Metronidazole 500 mg/ IV (Solution) 100 mls @ 100 mls/hr IVPB Q8HR [facility] Last Admin: 03/11/20 23:23 Dose: 100 mls/hr Documented by: Ketorolac Tromethamine (Ketorolac 15 Mg/Ml 1 Ml Vial) 15 mg IVP Q6HR [facility] Stop: 03/15/20 18:01 Last Admin: 03/11/20 23:22 Dose: 15 mg Documented by: Metoclopramide HCl (Metoclopramide 5 Mg/Ml 2 Ml Vial) 10 mg IVP Q6HR PRN PRN Reason: Nausea and Vomiting Naloxone HCl (Naloxone 0.4 Mg/Ml 1 Ml Vial) 0.2 mg IV Q2M PRN PRN Reason: Opioid Reversal Ondansetron HCl (Ondansetron 4 Mg/2 Ml Vial) 4 mg IVP Q8HR PRN PRN Reason: Nausea And Vomiting Pantoprazole Sodium (Pantoprazole 40 Mg/10 Ml Vial) 40 mg IVP BID [facility] Last Admin: 03/11/20 19:52 Dose: 40 mg Documented by: Simethicone (Simethicone 80 Mg Chewable) 160 mg PO TID [facility] Last Admin: 03/11/20 23:22 Dose: Not Given Documented by: Physical examination: VITAL SIGNS: 97.4, 74, 18, 146-86, 94% room air GENERAL: Laying in bed, awake, HEENT-NG tube EYES: Pupils equal. Conjunctiva normal. NECK: JVD not raised; masses not palpable. HEART: First and second heart sounds are normal; no edema. LUNGS: Respiratory rate normal; clear to auscultation. ABDOMEN: Soft, some tenderness, colostomy bag, empty, liver spleen not palpable, no masses palpable. Scrotal swelling. EXTREMITIES: Edema PSYCH: Alert and oriented x3; mood and affect anxious. INVESTIGATIONS, reviewed in the clinical context: White count 13.6 hemoglobin 11.7 potassium 4.5 creatinine 1.2 Venous Doppler ultrasound lower extremity-negative for DVT Previous testing White count 13.3 hemoglobin 14.6 left shift, potassium 4.3 creatinine 1.09 lactic acid 2.2 Computed tomography scan of the abdomen March 05-sigmoid dermatitis with few gas bubbles pro-calcitonin 1.96 Computed tomography scan of the abdomen-March 09 shows mild distention of the stomach with air-fluid level. Fluid-filled small bowel loops with air-fluid levels. Up to 3.9 cm. Poorly distended transverse and left colon. Ill-defined fluid and fat stranding of proximal sigmoid colon the left pelvis area. Pneumoperitoneum present. Assessment: -Acute severe sigmoid diverticular disease with perforation ; followed by ileus and sigmoid colectomy. End colostomy -Scrotal edema lower extremity edema from third spacing -Secondary peritonitis from perforation -Sepsis from above- -Lactic acidosis from above -Acute kidney injury likely from sepsis -Hypoalbuminemia-acute phase reactant -Start TPN and lipids discussed with Dr. Craft. Plan: Continue IV Zosyn. Flagyl . We'll get a midline a start the patient lipids. We'll use a strap the lower extremities. And elevate the scrotum. Cutback on IV fluids. TPN and lipids will be started. Discussed with the patient and . Total time spent today about 40 minutes including 25 dose of discussion. Thank you Dr. Craft
[2020-03-12] MEDS: PIPERACILLIN-TAZOBACTAM 3.375 GM in SODIUM CHLORIDE 0.9% 100 ML IVPB SCH ×2 (01:55→10:02)
[2020-03-12] MEDS: SODIUM CHLORIDE 0.9% 1,000 ML IV SCH ×3 (04:17→17:19)
[2020-03-12] MEDS: KETOROLAC 15 MG/ML 1 ML VIAL IVP SCH ×4 (05:34→23:11)
[2020-03-12 07:29] LABS: Basophils # (A) 0.1 k/uL (0-0.2); Basophils % (A) 1 %; Eosinophils # (A) 0.4 k/uL (0-0.7); Eosinophils % (A) 4 %; HCT 36.8 % (39.0-53.0); HGB 11.5 gm/dL (13.0-17.5); Hypochromasia Slight; Lymphocytes # (A) 1.7 k/uL (1.0-4.8); Lymphocytes % (A) 16 %; MCHC 31.1 g/dL (31.0-37.0); MCV 93.2 fL (80.0-100.0); Monocytes # (A) 0.8 k/uL (0-1.0); Monocytes % (A) 7 %; Neutrophils # (A) 7.7 k/uL (1.3-7.7); Neutrophils % (A) 70 %; Platelet Count 454 k/uL (150-450); RBC 3.95 m/uL (4.30-5.90); WBC 10.9 k/uL (3.8-10.6)
[2020-03-12] MEDS: ENOXAPARIN 40 MG/0.4 ML SYRINGE SQ SCH (07:36)
[2020-03-12] MEDS: metroNIDAZOLE-NS PMX 500 MG in SALINE 1 100ML.BAG IVPB SCH ×3 (07:36→23:11)
[2020-03-12] MEDS: PANTOPRAZOLE 40 MG/10 ML VIAL IVP SCH ×2 (07:36→20:23)
[2020-03-12] MEDS: SIMETHICONE 80 MG CHEWABLE PO SCH ×3 (07:37→20:27)
[2020-03-12] MEDS: D5-0.45% NACL WITH KCL 20MEQ/L 1,000 ML IV SCH ×2 (10:01→20:23)
[2020-03-12 11:04] LABS: African American GFR (CKD) 97.1 (60.0-200.0); Anion Gap 10.9 mmol/L (4.00-12.00); Calcium 7.8 mg/dL (8.7-10.3); Carbon Dioxide 22.1 mmol/L (21.6-31.8); Non-African American GFR(CKD) 83.8 (60.0-200.0); Potassium 3.9 mmol/L (3.5-5.5)
[2020-03-12 11:40] LABS: Ionized Calcium 4.7 mg/dL (4.5-5.3)
--- NOTE | 2020-03-12 11:47 | P.PN ---
Subjective Progress Note Date: 03/12/20 Principal diagnosis: Diverticulitis Patient doing better today. Dotson catheter was removed last night. No further hematuria. Pain is improving. He has had flatus through the ostomy. Nasogastric tube with 400 mL output last night. He had a T-max of 99.3. White blood cell count improved. Objective - Vital Signs Vital signs: Vital Signs Temp 97.6 F 03/12/20 07:00 Pulse 79 03/12/20 07:00 Resp 22 03/12/20 07:00 BP 157/83 03/12/20 07:00 Pulse Ox 92 L 03/12/20 07:00 Intake & Output 03/11/20 03/12/20 03/12/20 18:59 06:59 18:59 Intake Total 600 Output Total 900 Balance -300 Intake: Intake, IV Titration 600 Amount D5-0.45% NaCl with KCl 600 20Meq/l 1,000 ml @ 75 mls /hr IV .[id number] TO Rx#: [id number] Output: Gastric Drainage 900 Other: Voiding Method Indwelling Catheter Indwelling Catheter Indwelling Catheter - Exam Abdomen: Soft, nondistended, 3 Weck site wounds with minimal drainage, no erythema, ostomy pink - Labs CBC & Chem 7: 03/12/20 06:51 03/12/20 06:51 Labs: Abnormal Lab Results - Last 24 Hours (Table) 03/11/20 03/12/20 03/12/20 Range/Units 11:50 06:51 06:51 WBC 10.9 H (3.8-10.6) k/uL RBC 3.95 L (4.30-5.90) m/uL Hgb 11.5 L (13.0-17.5) gm/dL Hct 36.8 L (39.0-53.0) % Plt Count 454 H (150-450) k/uL Chloride 110 H (96-109) mmol/L BUN/Creatinine Ratio 23.00 H (12.00-20.00) Ratio Calcium 7.8 L (8.7-10.3) mg/dL Urine RBC >182 H (0-5) /hpf Urine WBC 124 H (0-5) /hpf Urine WBC Clumps Moderate H (None) /hpf Urine Bacteria Rare H (None) /hpf Urine Mucus Few H (None) /hpf Assessment and Plan (1) Sigmoid diverticulitis Narrative/Plan: Patient overall slowly improving. Keep nasogastric tube one more day. Continue ambulation. Keep Dotson catheter out. Recheck labs tomorrow. Continue broad- spectrum antibiotics. Current Visit: Yes Status: Acute Code(s): K57.32 - DVTRCLI OF LG INT W/O PERFORATION OR ABSCESS W/O BLEEDING SNOMED Code(s): 603497568
[2020-03-12 11:48] LABS: Albumin 2.6 g/dL (3.5-5.0); Phosphorus 3.5 mg/dL (2.5-4.5)
[2020-03-12] MEDS: BENZOCAINE/MENTHOL LOZENG 1 EACH LOZENGE MUCOUS MEM PRN ×5 (12:07→23:10)
--- NOTE | 2020-03-12 14:40 | IR ---
PICC LINE PLACEMENT: HISTORY: Infection requiring long-term antibiotic therapy PROCEDURE: Ultrasound and fluoroscopic guidance of PICC line placement. COMPLICATIONS: None ANESTHESIA: 1. 1% Lidocaine locally. FINDINGS/TECHNIQUE: The procedure was explained to the patient. The risks, complications, benefits and alternatives were discussed and any questions were answered. Informed consent was obtained. The patient was placed supine on the fluoroscopic table and prepped and draped in the usual sterile fash ion. Utilizing a 21 gauge needle and sonographic and fluoroscopic guidance, access in the left basi lic vein was achieved and there is placement of a 0.018 guidewire. The vein is patent. A 4-F sheath was placed over the guidewire. The guidewire and dilator were removed and a 4-F. PICC line was plac ed through the sheath with the tip at the level of the SVC. The sheath was removed, the catheter was flushed and sutured into position. The patient was stable throughout the procedure and remained sta ble upon discharge from the Department of Radiology. The vein puncture was patent under ultrasound. A wills scale image was obtained to document patency of the vein punctured. All elements of the maximal barrier technique were utilized. FLUOROSCOPY TIME: 0.5 minutes and one image submitted IMPRESSION: Successful PICC line placement under ultrasound and fluoroscopic guidance.
[2020-03-12] MEDS ORDERED: MVI, ADULT NO.4 WITH VIT K 10 ML, TRACE (CONC-1ML/DOSE) 1 ML in AMINO ACID 5%-D15W+LYTE... IV SCH ×3 (16:00)
--- NOTE | 2020-03-12 19:59 | P.PN ---
Progress Note - Text Progress Note Date: 03/12/20 - Chief Complaint Abdominal pain History of presenting complaint: This is a pleasant 54 year patient . Patient's had one prior by bout of diverticulitis few years ago. For last few days has been feeling a bit queasy the left lower abdomen. Symptoms progressively got worse. The day prior to admission pain progressed to be rather severe today left lower abdomen. There no significant nausea. No vomiting. Fever and chills were present. Patient normally has one bowel movement every day or every other day. Presented to the ER. Was febrile septic. It showed few gas bubbles around the tick and sigmoid in the area of inflammation. Patient admitted with IV fluids antibiotics. On a clear liquid diet. Significant pain.subsequently had abdominal distention. computed tomography scan of the abdomen showing free air, possible bowel obstruction. On evening of March 09 patient taken to the operating room- patient found to have a perforated sigmoid diverticular disease with ileus. Sigmoid colectomy with end colostomy was done. NG tube placed. DVT lower extremities ruled out. today- patient been using Arsenio wrap lower extremity. Swelling is gone down. Dotson discontinued. Made good urine. Did pass some flatus in the colostomy bag. NG tube in place. Pain control. Review of systems: Was done for constitutional, cardiovascular, GI, pulmonary. relevant finding as above Active Medications Hydrocodone Bitart/Acetaminophen (Hydrocodone/Apap 5-325mg 1 Each Tab) 1 each PO Q4HR PRN PRN Reason: Moderate Pain Last Admin: 03/09/20 02:47 Dose: 1 each Documented by: Benzocaine/Menthol (Benzocaine/Menthol Lozeng 1 Each Lozenge) 1 each MUCOUS MEM Q1HR PRN PRN Reason: Sore Throat Last Admin: 03/12/20 17:19 Dose: 1 each Documented by: Enoxaparin Sodium (Enoxaparin 40 Mg/0.4 Ml Syringe) 40 mg SQ DAILY TO Last Admin: 03/12/20 07:36 Dose: 40 mg Documented by: Hydromorphone HCl (Hydromorphone 1 Mg/Ml 1 Ml Syringe) 1 mg IVP Q3HR PRN PRN Reason: Moderate to Severe Pain Last Admin: 03/11/20 07:56 Dose: 1 mg Documented by: Sodium Chloride (Saline 0.9%) 1,000 mls @ 130 mls/hr IV .[id number] [facility] Last Admin: 03/12/20 17:19 Dose: Not Given Documented by: Potassium Chloride/Dextrose/Sod Cl (D5%-1/2ns-Kcl 20 Meq/L Iv Solution) 1,000 mls @ 75 mls/hr IV .[id number] [facility] Last Admin: 03/12/20 10:01 Dose: 75 mls/hr Documented by: Metronidazole 500 mg/ IV (Solution) 100 mls @ 100 mls/hr IVPB Q8HR [facility] Last Admin: 03/12/20 14:59 Dose: 100 mls/hr Documented by: Parenteral Vitamin Supplement 10 ml/ Chromium/Copper/Manganese/Seleni/Zn 1 ml/Amino Ac/Electrol/Dextrose/Calcium 1,011 mls @ 30 mls/hr IV .Q24H [facility] Stop: 03/13/20 15:59 Last Admin: 03/12/20 16:40 Dose: 30 mls/hr Documented by: Fat Emulsion Intravenous (Lipids 20%) 250 mls @ 20.833 mls/hr IV MoWeFr [facility] Amino Ac/Electrol/Dextrose/Calcium (Clinimix E 5%-D15% Solution) 1,000 mls @ 85 mls/hr IV .BY DURATION [facility] Parenteral Vitamin Supplement 10 ml/ Chromium/Copper/Manganese/Seleni/Zn 1 ml/Amino Ac/Electrol/Dextrose/Calcium 1,011 mls @ 85 mls/hr IV .BY DURATION [facility] Ketorolac Tromethamine (Ketorolac 15 Mg/Ml 1 Ml Vial) 15 mg IVP Q6HR [facility] Stop: 03/15/20 18:01 Last Admin: 03/12/20 17:19 Dose: 15 mg Documented by: Metoclopramide HCl (Metoclopramide 5 Mg/Ml 2 Ml Vial) 10 mg IVP Q6HR PRN PRN Reason: Nausea and Vomiting Naloxone HCl (Naloxone 0.4 Mg/Ml 1 Ml Vial) 0.2 mg IV Q2M PRN PRN Reason: Opioid Reversal Ondansetron HCl (Ondansetron 4 Mg/2 Ml Vial) 4 mg IVP Q8HR PRN PRN Reason: Nausea And Vomiting Pantoprazole Sodium (Pantoprazole 40 Mg/10 Ml Vial) 40 mg IVP BID [facility] Last Admin: 03/12/20 07:36 Dose: 40 mg Documented by: Simethicone (Simethicone 80 Mg Chewable) 160 mg PO TID [facility] Last Admin: 03/12/20 15:00 Dose: Not Given Documented by: Physical examination: VITAL SIGNS: 98, 68, 22, 151/37, 94% room air GENERAL: Sitting at the edges of bed, comfortable HEENT-NG tube EYES: Pupils equal. Conjunctiva normal. NECK: JVD not raised; masses not palpable. HEART: First and second heart sounds are normal; decreasing edema. LUNGS: Respiratory rate normal; clear to auscultation. ABDOMEN: Soft, some tenderness, colostomy bag, empty, liver spleen not palpable, no masses palpable. Scrotal swelling. EXTREMITIES: Edema decreasing PSYCH: Alert and oriented x3; mood and affect normal INVESTIGATIONS, reviewed in the clinical context: White count 10.9 hemoglobin 11.5 potassium 3.9 creatinine 1.0 Venous Doppler ultrasound lower extremity-negative for DVT Previous testing White count 13.3 hemoglobin 14.6 left shift, potassium 4.3 creatinine 1.09 lactic acid 2.2 Computed tomography scan of the abdomen March 05-sigmoid dermatitis with few gas bubbles pro-calcitonin 1.96 Computed tomography scan of the abdomen-March 09 shows mild distention of the stomach with air-fluid level. Fluid-filled small bowel loops with air-fluid levels. Up to 3.9 cm. Poorly distended transverse and left colon. Ill-defined fluid and fat stranding of proximal sigmoid colon the left pelvis area. Pneu moperitoneum present. Assessment: -Acute severe sigmoid diverticular disease with perforation ; followed by ileus and sigmoid colectomy. End colostomy -Scrotal edema lower extremity edema from third spacing -Secondary peritonitis from perforation -Sepsis from above- -Lactic acidosis from above -Acute kidney injury likely from sepsis-better -Hypoalbuminemia-acute phase reactant -Acute postprocedure blood loss anemia as expected from surgery Plan: Continue IV Zosyn. Flagyl . Still pending a line placement to start the patient lipids. Care discussed with the patient questions answered. Thank you Dr. Craft
[2020-03-13] MEDS: SODIUM CHLORIDE 0.9% 1,000 ML IV SCH ×2 (02:41→19:55)
[2020-03-13] MEDS: BENZOCAINE/MENTHOL LOZENG 1 EACH LOZENGE MUCOUS MEM PRN ×4 (04:53→17:38)
[2020-03-13] MEDS: KETOROLAC 15 MG/ML 1 ML VIAL IVP SCH ×4 (04:53→23:40)
[2020-03-13 07:32] LABS: Basophils # (A) 0.1 k/uL (0-0.2); Basophils % (A) 0 %; Eosinophils # (A) 0.4 k/uL (0-0.7); Eosinophils % (A) 4 %; HCT 36.1 % (39.0-53.0); HGB 11.3 gm/dL (13.0-17.5); Hypochromasia Slight; Lymphocytes # (A) 1.8 k/uL (1.0-4.8); Lymphocytes % (A) 15 %; MCHC 31.4 g/dL (31.0-37.0); MCV 92.4 fL (80.0-100.0); Monocytes # (A) 0.6 k/uL (0-1.0); Monocytes % (A) 5 %; Neutrophils % (A) 74 %; Platelet Count 455 k/uL (150-450); RDW 13.7 % (11.5-15.5); WBC 12.2 k/uL (3.8-10.6)
[2020-03-13] MEDS: metroNIDAZOLE-NS PMX 500 MG in SALINE 1 100ML.BAG IVPB SCH ×3 (08:42→23:40)
[2020-03-13] MEDS: PANTOPRAZOLE 40 MG/10 ML VIAL IVP SCH ×2 (08:52→20:26)
[2020-03-13] MEDS: ENOXAPARIN 40 MG/0.4 ML SYRINGE SQ SCH (08:56)
[2020-03-13] MEDS: SIMETHICONE 80 MG CHEWABLE PO SCH ×3 (08:58→21:17)
[2020-03-13] MEDS ORDERED: FAT EMULSION 20% 250 ML IV SCH (09:00)
[2020-03-13 11:13] LABS: African American GFR (CKD) 110.3 (60.0-200.0); Anion Gap 10.5 mmol/L (4.00-12.00); BUN/Creat Ratio 17.78 Ratio (12.00-20.00); Calcium 8.1 mg/dL (8.7-10.3); Carbon Dioxide 27.5 mmol/L (21.6-31.8); Magnesium 1.9 mg/dL (1.5-2.4); Non-African American GFR(CKD) 95.1 (60.0-200.0); Phosphorus 3.5 mg/dL (2.4-5.1)
[2020-03-13 11:41] LABS: Glucose,Whole Blood 126 mg/dL (75-99)
[2020-03-13] MEDS: D5-0.45% NACL WITH KCL 20MEQ/L 1,000 ML IV SCH (11:41)
--- NOTE | 2020-03-13 12:37 | P.PN ---
Subjective Progress Note Date: 03/13/20 Principal diagnosis: Diverticulitis Patient doing well today. He is having stool through the ostomy at this time. Denies any significant pain. No fevers. White blood cell count increased slightly to 12.2. Objective - Vital Signs Vital signs: Vital Signs Temp 97.7 F 03/13/20 07:56 Pulse 72 03/13/20 07:56 Resp 14 03/13/20 07:56 BP 136/82 03/13/20 07:56 Pulse Ox 95 03/13/20 01:03 Intake & Output 03/12/20 03/13/20 03/13/20 18:59 06:59 18:59 Intake Total 480 Output Total 1000 100 Balance -1000 380 Weight 95.254 kg Intake: Intake, IV Titration 480 Amount Mvi, Adult No.4 with Vit 480 K 10 ml Trace (Conc-1Ml/ Dose) 1 ml In Amino Acid 5%-D15w+Lytes*E* 1,000 ml @ 30 mls/hr IV .Q24H [facility] Rx#:[id number] Output: Gastric Drainage 1000 Stool 100 Other: Voiding Method Indwelling Catheter Indwelling Catheter # Voids 3 - Exam Abdomen: Soft, nondistended, dressing with small amount of sanguinous drainage from the wick site, ostomy functioning - Labs CBC & Chem 7: 03/13/20 06:12 03/13/20 06:12 Labs: Abnormal Lab Results - Last 24 Hours (Table) 03/13/20 03/13/20 03/13/20 Range/Units 06:12 06:12 11:39 WBC 12.2 H (3.8-10.6) k/uL RBC 3.90 L (4.30-5.90) m/uL Hgb 11.3 L (13.0-17.5) gm/dL Hct 36.1 L (39.0-53.0) % Plt Count 455 H (150-450) k/uL Neutrophils # 9.0 H (1.3-7.7) k/uL Glucose 113 H (70-110) mg/dL POC Glucose (mg/dL) 126 H (75-99) mg/dL Calcium 8.1 L (8.7-10.3) mg/dL Assessment and Plan (1) Sigmoid diverticulitis Narrative/Plan: Patient overall doing well. We'll remove nasogastric tube at this time. Begin clear liquids. Continue TPN until tomorrow. Ambulate. Possible discharge Monday or Monday. Current Visit: Yes Status: Acute Code(s): K57.32 - DVTRCLI OF LG INT W/O PERFORATION OR ABSCESS W/O BLEEDING SNOMED Code(s): 614971756
[2020-03-13 18:01] LABS: Glucose,Whole Blood 113 mg/dL (75-99)
[2020-03-13] MEDS: 1: AMINO ACID 5%-D15W+LYTES*E* 1,000 ML 2: MVI, ADULT NO.4 WITH VIT K 10 ML, TRACE (CON IV SCH ×3 (19:48)
--- NOTE | 2020-03-13 20:27 | P.PN ---
Progress Note - Text Progress Note Date: 03/13/20 - Chief Complaint Abdominal pain History of presenting complaint: This is a pleasant 54 year patient . Patient's had one prior by bout of diverticulitis few years ago. For last few days has been feeling a bit queasy the left lower abdomen. Symptoms progressively got worse. The day prior to admission pain progressed to be rather severe today left lower abdomen. There no significant nausea. No vomiting. Fever and chills were present. Patient normally has one bowel movement every day or every other day. Presented to the ER. Was febrile septic. It showed few gas bubbles around the tick and sigmoid in the area of inflammation. Patient admitted with IV fluids antibiotics. On a clear liquid diet. Significant pain.subsequently had abdominal distention. computed tomography scan of the abdomen showing free air, possible bowel obstruction. On evening of March 09 patient taken to the operating room- patient found to have a perforated sigmoid diverticular disease with ileus. Sigmoid colectomy with end colostomy was done. NG tube placed. DVT lower extremities ruled out. TPN and lipid started. Patient had bilateral lower extremity swelling and scrotal edema. Donahue to be from third spacing. Improvement leg elevation and Arsenio wraps. DVT ruled out. today- NG tube taken out today. Lower extremity and scrotal swelling significantly improved. Did put out stool from the colostomy bag. Abdominal pain better Review of systems: Was done for constitutional, cardiovascular, GI, pulmonary. relevant finding as above Active Medications Hydrocodone Bitart/Acetaminophen (Hydrocodone/Apap 5-325mg 1 Each Tab) 1 each PO Q4HR PRN PRN Reason: Moderate Pain Last Admin: 03/09/20 02:47 Dose: 1 each Documented by: Benzocaine/Menthol (Benzocaine/Menthol Lozeng 1 Each Lozenge) 1 each MUCOUS MEM Q1HR PRN PRN Reason: Sore Throat Last Admin: 03/13/20 17:38 Dose: 1 each Documented by: Enoxaparin Sodium (Enoxaparin 40 Mg/0.4 Ml Syringe) 40 mg SQ DAILY TO Last Admin: 03/13/20 08:56 Dose: 40 mg Documented by: Hydromorphone HCl (Hydromorphone 1 Mg/Ml 1 Ml Syringe) 1 mg IVP Q3HR PRN PRN Reason: Moderate to Severe Pain Last Admin: 03/11/20 07:56 Dose: 1 mg Documented by: Potassium Chloride/Dextrose/Sod Cl (D5%-1/2ns-Kcl 20 Meq/L Iv Solution) 1,000 mls @ 75 mls/hr IV .[id number] [facility] Last Admin: 03/13/20 11:41 Dose: 75 mls/hr Documented by: Metronidazole 500 mg/ IV (Solution) 100 mls @ 100 mls/hr IVPB Q8HR [facility] Last Admin: 03/13/20 15:45 Dose: 100 mls/hr Documented by: Fat Emulsion Intravenous (Lipids 20%) 250 mls @ 20.833 mls/hr IV MoWeFr [facility] Last Admin: 03/13/20 09:00 Dose: 20.833 mls/hr Documented by: Amino Ac/Electrol/Dextrose/Calcium (Clinimix E 5%-D15% Solution) 1,000 mls @ 85 mls/hr IV .BY DURATION [facility] Last Admin: 03/13/20 19:48 Dose: Not Given Documented by: Parenteral Vitamin Supplement 10 ml/ Chromium/Copper/Manganese/Seleni/Zn 1 ml/Amino Ac/Electrol/Dextrose/Calcium 1,011 mls @ 85 mls/hr IV .BY DURATION [facility] Ketorolac Tromethamine (Ketorolac 15 Mg/Ml 1 Ml Vial) 15 mg IVP Q6HR [facility] Stop: 03/15/20 18:01 Last Admin: 03/13/20 17:39 Dose: 15 mg Documented by: Metoclopramide HCl (Metoclopramide 5 Mg/Ml 2 Ml Vial) 10 mg IVP Q6HR PRN PRN Reason: Nausea and Vomiting Naloxone HCl (Naloxone 0.4 Mg/Ml 1 Ml Vial) 0.2 mg IV Q2M PRN PRN Reason: Opioid Reversal Ondansetron HCl (Ondansetron 4 Mg/2 Ml Vial) 4 mg IVP Q8HR PRN PRN Reason: Nausea And Vomiting Pantoprazole Sodium (Pantoprazole 40 Mg/10 Ml Vial) 40 mg IVP BID [facility] Last Admin: 03/13/20 08:52 Dose: 40 mg Documented by: Simethicone (Simethicone 80 Mg Chewable) 160 mg PO TID [facility] Last Admin: 03/13/20 15:44 Dose: 160 mg Documented by: Physical examination: VITAL SIGNS: 97.7, 72, 14, 1 3682, 95% on room air GENERAL: Sitting on the chair, feeling better HEENT-NG tube-discontinued EYES: Pupils equal. Conjunctiva normal. NECK: JVD not raised; masses not palpable. HEART: First and second heart sounds are normal; edema much improved LUNGS: Respiratory rate normal; clear to auscultation. ABDOMEN: Soft, some tenderness, colostomy bag, empty, liver spleen not palpable, no masses palpable. Scrotal swelling.-Improved EXTREMITIES: Edema decreasing PSYCH: Alert and oriented x3; mood and affect normal INVESTIGATIONS, reviewed in the clinical context: Today-white count 12.2 hemoglobin 11.3 platelets 455 potassium 4 creatinine 0.9 Venous Doppler ultrasound lower extremity-negative for DVT Previous testing White count 13.3 hemoglobin 14.6 left shift, potassium 4.3 creatinine 1.09 lactic acid 2.2 Computed tomography scan of the abdomen March 05-sigmoid dermatitis with few gas bubbles pro-calcitonin 1.96 Computed tomography scan of the abdomen-March 09 shows mild distention of the stomach with air-fluid level. Fluid-filled small bowel loops with air-fluid levels. Up to 3.9 cm. Poorly distended transverse and left colon. Ill-defined fluid and fat stranding of proximal sigmoid colon the left pelvis area. Pneumoperitoneum present. Assessment: -Acute severe sigmoid diverticular disease with perforation ; followed by ileus and sigmoid colectomy. End colostomy -Scrotal edema lower extremity edema from third spacing-improving -Secondary peritonitis from perforation -Sepsis from above- -Lactic acidosis from above -Acute kidney injury likely from sepsis-better -Hypoalbuminemia-acute phase reactant -Acute postprocedure blood loss anemia as expected from surgery Plan: Continue IV Zosyn. Flagyl . On TPN and lipids. NG tube discontinued today. Eating well going on. Started tablet. Responding well. Discussed with the patient. Questions answered. Thank you Dr. Cook
[2020-03-13 23:49] LABS: Glucose,Whole Blood 106 mg/dL (75-99)
[2020-03-14] MEDS: BENZOCAINE/MENTHOL LOZENG 1 EACH LOZENGE MUCOUS MEM PRN ×7 (00:20→23:17)
[2020-03-14] MEDS: D5-0.45% NACL WITH KCL 20MEQ/L 1,000 ML IV SCH ×2 (01:28→15:11)
[2020-03-14] MEDS: 1: AMINO ACID 5%-D15W+LYTES*E* 1,000 ML 2: MVI, ADULT NO.4 WITH VIT K 10 ML, TRACE (CON IV SCH ×9 (03:08→19:33)
[2020-03-14 05:59] LABS: Basophils # (A) 0.1 k/uL (0-0.2); Basophils % (A) 0 %; Eosinophils # (A) 0.4 k/uL (0-0.7); Eosinophils % (A) 4 %; HCT 33.6 % (39.0-53.0); HGB 10.8 gm/dL (13.0-17.5); Lymphocytes # (A) 1.4 k/uL (1.0-4.8); Lymphocytes % (A) 12 %; MCH 29.2 pg (25.0-35.0); MCHC 32.1 g/dL (31.0-37.0); MCV 90.9 fL (80.0-100.0); Mean Platelet Volume 7.3; Monocytes # (A) 0.6 k/uL (0-1.0); Monocytes % (A) 6 %; Neutrophils # (A) 8.7 k/uL (1.3-7.7); Neutrophils % (A) 77 %; Platelet Count 446 k/uL (150-450); RDW 13.7 % (11.5-15.5); WBC 11.4 k/uL (3.8-10.6)
[2020-03-14] MEDS: KETOROLAC 15 MG/ML 1 ML VIAL IVP SCH ×4 (06:02→23:17)
[2020-03-14 06:26] LABS: Glucose,Whole Blood 133 mg/dL (75-99)
[2020-03-14] MEDS: PANTOPRAZOLE 40 MG/10 ML VIAL IVP SCH ×2 (09:07→21:04)
[2020-03-14] MEDS: SIMETHICONE 80 MG CHEWABLE PO SCH ×3 (09:07→21:05)
[2020-03-14] MEDS: metroNIDAZOLE-NS PMX 500 MG in SALINE 1 100ML.BAG IVPB SCH ×3 (09:08→23:18)
[2020-03-14] MEDS: ENOXAPARIN 40 MG/0.4 ML SYRINGE SQ SCH (09:08)
[2020-03-14 09:41] LABS: African American GFR (CKD) 115.7 (60.0-200.0); Anion Gap 5.4 mmol/L (4.00-12.00); Calcium 7.5 mg/dL (8.7-10.3); Carbon Dioxide 27.6 mmol/L (21.6-31.8); Magnesium 1.8 mg/dL (1.5-2.4); Non-African American GFR(CKD) 99.9 (60.0-200.0); Potassium 3.3 mmol/L (3.5-5.5)
--- NOTE | 2020-03-14 11:48 | P.PN ---
Progress Note - Text Progress Note Date: 03/14/20 Patient's dressing, flatus bed. He denies any significant pain. On exam vital signs are stable. Abdomen soft. Incision site is clean dry tach. There is some stool in the colostomy site. Status post Cory procedure. Patient continue supportive care.
[2020-03-14 12:05] LABS: Glucose,Whole Blood 126 mg/dL (75-99)
[2020-03-14] MEDS: MAGNESIUM SULFATE-D5W PMX 1 GM in DEXTROSE/WATER 1 100ML.BAG IVPB SCH ×2 (15:11→16:30)
[2020-03-14] MEDS: POTASSIUM CHLORIDE 20 MEQ in WATER FOR INJECTION 1 100ML.BAG IVPB SCH ×2 (17:43→21:04)
[2020-03-14 18:52] LABS: Glucose,Whole Blood 100 mg/dL (75-99)
--- NOTE | 2020-03-14 19:01 | XR ---
EXAMINATION TYPE: XR chest 1V portable DATE OF EXAM: 03/14/2020 COMPARISON: 03/10/2020 HISTORY: Atelectasis TECHNIQUE: Single view FINDINGS: There is some blunting left costophrenic angle and poor inspiration. There is left side sub clavian catheter with tip in the superior vena cava. There is no heart failure. There are no hilar ma sses. Thoracic aorta is atheromatous. IMPRESSION: There is some mild atelectasis left lung base improved compared to last exam.
--- NOTE | 2020-03-14 19:50 | PN ---
PROGRESS NOTE DATE OF SERVICE: 03/14/2020 This 54-year-old gentleman who was admitted after sigmoid colectomy and colostomy and because of perforation is being closely monitored at this time. The patient is making significant improvement. Potassium is 3.3 and WBC 11.1, hemoglobin 10.8. The most recent chest x-ray done on March 10, which was reviewed personally by me showed NG tube and basilar effusions. Past medical history reviewed. REVIEW OF SYSTEMS: Cardiovascular system: No angina or palpitations. RESPIRATORY: As mentioned earlier. GI: As mentioned earlier. : No dysuria. NERVOUS SYSTEM: No numbness or weakness. CURRENT MEDICATIONS: Reviewed and include: 1. Spring. 2. Cepacol. 3. Lovenox. 4. TPN. 5. Toradol. 6. Reglan. 7. Flagyl. 8. Protonix. PHYSICAL EXAM: Patient is alert, oriented x3. Pulse 67, blood pressure 150/86, respiration 18, temperature 98.2, pulse ox 98% on room air. HEENT: Conjunctivae normal. NECK: No JVD. CARDIOVASCULAR: S1, S2 muffled. RESPIRATORY: Breath sounds diminished in the bases. A few scattered rhonchi and crackles. ABDOMEN: Soft. Colostomy present. NERVOUS SYSTEM: No focal deficits. LABS: WBC 11.1, hemoglobin 10.8 and sodium 142, potassium 3.3. ASSESSMENT: 1. Acute severe sigmoid diverticular disease and abscess perforation status post sigmoid colectomy with possible sepsis present on admission. 2. On TPN. 3. Scrotal edema and lower extremity edema. 4. Secondary peritonitis from perforation. 5. Lactic acidosis. 6. Acute renal failure. 7. Hypoalbuminemia. 8. Acute blood loss anemia as expected. 9. Atelectasis. 10.Hypokalemia. 11.Increased WBC. 12.Elevated random glucose. RECOMMENDATIONS AND DISCUSSION: This 54-year-old gentleman with a past medical history of multiple medical problems, we will monitor the patient closely. Continue the current medications. Continue the current medications, management and incentive spirometry. Repeat labs. I would also recommend a portable chest x-ray. Otherwise, the rest of the recommendations per Surgery. Continue with proton pump inhibitors. Otherwise, prognosis extremely guarded because of multiple complex medical issues and further recommendations to follow. We will also reconcile the home medications also. MMODL / IJN: [id number] /
[2020-03-15 00:15] LABS: Glucose,Whole Blood 91 mg/dL (75-99)
[2020-03-15] MEDS: KETOROLAC 15 MG/ML 1 ML VIAL IVP SCH (05:41)
[2020-03-15] MEDS: D5-0.45% NACL WITH KCL 20MEQ/L 1,000 ML IV SCH (05:45)
[2020-03-15 05:48] LABS: Basophils # (A) 0.1 k/uL (0-0.2); Basophils % (A) 1 %; Eosinophils # (A) 0.4 k/uL (0-0.7); Eosinophils % (A) 3 %; HCT 36.6 % (39.0-53.0); HGB 11.6 gm/dL (13.0-17.5); Lymphocytes # (A) 1.3 k/uL (1.0-4.8); Lymphocytes % (A) 11 %; MCH 28.8 pg (25.0-35.0); MCHC 31.5 g/dL (31.0-37.0); MCV 91.4 fL (80.0-100.0); Mean Platelet Volume 7.5; Monocytes # (A) 0.6 k/uL (0-1.0); Monocytes % (A) 5 %; Neutrophils # (A) 9.1 k/uL (1.3-7.7); Neutrophils % (A) 79 %; Platelet Count 492 k/uL (150-450); RBC 4.01 m/uL (4.30-5.90); RDW 13.6 % (11.5-15.5); WBC 11.6 k/uL (3.8-10.6)
[2020-03-15] MEDS: ENOXAPARIN 40 MG/0.4 ML SYRINGE SQ SCH (08:29)
[2020-03-15] MEDS: PANTOPRAZOLE 40 MG/10 ML VIAL IVP SCH (08:29)
[2020-03-15] MEDS: metroNIDAZOLE-NS PMX 500 MG in SALINE 1 100ML.BAG IVPB SCH (08:30)
[2020-03-15] MEDS: SIMETHICONE 80 MG CHEWABLE PO SCH (08:30)
[2020-03-15 08:32] VITALS: BP 157/93; PULSE 78; RESP 19; TEMP 98.1
[2020-03-15] MEDS ORDERED: NON FORMULARY DRUG (Vitamin B Complex [Vitamin B Complex] 1 EACH Capsule) PO SCH (09:00)
[2020-03-15] MEDS ORDERED: CHOLECALCIFEROL 1,000 UNIT TAB PO SCH (09:00)
[2020-03-15 09:18] LABS: African American GFR (CKD) 115.7 (60.0-200.0); Anion Gap 5.9 mmol/L (4.00-12.00); BUN/Creat Ratio 11.25 Ratio (12.00-20.00); Calcium 7.7 mg/dL (8.7-10.3); Carbon Dioxide 28.1 mmol/L (21.6-31.8); Non-African American GFR(CKD) 99.9 (60.0-200.0); Phosphorus 2.9 mg/dL (2.4-5.1)
--- NOTE | 2020-03-15 10:12 | P.DS ---
Providers Date of admission: 03/05/20 03:45 Expected date of discharge: 03/15/20 Attending physician: Reuben Montemayor Consults: 03/05/20 10:53 Consult Physician Routine Consulting Provider: Dean Montilla Consult Reason/Comments: medical management Do you want consulting provider notified?: Yes 03/11/20 10:15 Consult Physician Routine Consulting Provider: Samir Landaverde Consult Reason/Comments: juarez red urine and burning sensation Do you want consulting provider notified?: Yes Primary care physician: [facility] Hospital Course: This 54-year-old male who underwent Cory procedure for perforated diverticula is. Please see hospital chart for details. Procedures: Cory procedure Patient Condition at Discharge: Good Plan - Discharge Summary Discharge Rx Participant: Yes New Discharge Prescriptions: New metroNIDAZOLE [Flagyl] 500 mg PO TID #30 tab Levofloxacin [Levaquin] 500 mg PO DAILY 10 Days #10 tab Hydrocodone/Acetaminophen [Hawley 5-325] 1 tab PO Q6HR PRN 3 Days #12 tab PRN Reason: Pain No Action Vitamin B Complex 1 cap PO DAILY Aspirin EC [Ecotrin Low Dose] 81 mg PO DAILY Omeprazole 20 mg PO DAILY Glucos Sul 2Kcl/MSM/Chond/C/Mn [Glucosamine Chondroitin Cap] 1 cap PO DAILY Cholecalciferol [Vitamin D3 (25 Mcg = 1000 Iu)] 2,000 unit PO DAILY Discharge Medication List Aspirin EC [Ecotrin Low Dose] 81 mg PO DAILY 03/05/20 [History] Cholecalciferol [Vitamin D3 (25 Mcg = 1000 Iu)] 2,000 unit PO DAILY 03/05/20 [History] Glucos Sul 2Kcl/MSM/Chond/C/Mn [Glucosamine Chondroitin Cap] 1 cap PO DAILY 03/05/20 [History] Omeprazole 20 mg PO DAILY 03/05/20 [History] Vitamin B Complex 1 cap PO DAILY 03/05/20 [History] Hydrocodone/Acetaminophen [Hawley 5-325] 1 tab PO Q6HR PRN 3 Days #12 tab 03/13/20 [Rx] Levofloxacin [Levaquin] 500 mg PO DAILY 10 Days #10 tab 03/13/20 [Rx] metroNIDAZOLE [Flagyl] 500 mg PO TID #30 tab 03/13/20 [Rx] Follow up Appointment(s)/Referral(s): Reuben Montemayor MD [Medical Doctor] - 03/26/20 Ross Lou MD [Primary Care Provider] - 1-2 days [facility], [NON-STAFF] - As Needed Patient Instructions/Handouts: Diverticulitis (GEN), Colostomy Care (GEN) Activity/Diet/Wound Care/Special Instructions: Abdominal Incision Care: Colostomy Care Instructions Last Pouching System Change: 03.13.2020 Recommendations for ostomy care supplies for home: Convatec moldable flanges #[id number] (three from the hospital supplied) Convatec pouches with filter #[id number] (three from the hospital supplied for home) No sting prep pads (10 from the hospital supplied) Ostomy powder (one bottle supplied for home from the hospital ) Mr Lazcano is to empty the pouching system when sitting on the toilet when the bag is 1/2 to 1/3 full Mr Lazcano is to change the entire pouching system every 3-5 days unless otherwise directed b the Home Health Nurse or the surgeon Mr Lazcano will be receiving sample ostomy care supplies from [facility] approximately 5 days after discharge to his home. Home Health please arrange for Mr Lazcano to receive disposable pouches in 2 weeks after discharge vs the drainable pouches
--- NOTE | 2020-03-16 02:32 | PN ---
PROGRESS NOTE DATE OF SERVICE: 03/15/2020 This 54-year-old gentleman who was admitted with acute severe sigmoid diverticulitis and abscess and perforation had surgery. The patient was closely monitored. No chest pain. No palpitations. No fever. PHYSICAL EXAMINATION: Alert and oriented x3. Pulse 78, blood pressure 157/93, respiration 19, temperature 98.1, pulse ox 95% on room air. HEENT: Conjunctivae normal. NECK: No jugular venous distention. CARDIOVASCULAR: S1, S2 muffled. RESPIRATORY SYSTEM: Breath sounds diminished at the bases. No rhonchi. ABDOMEN: Soft, nontender. NERVOUS SYSTEM: No focal deficits. LABS: Chest x-ray, mild atelectasis, otherwise other labs are reviewed. WBC 11.6, hemoglobin 11.6. ASSESSMENT: 1. Acute severe sigmoid diverticular disease with abscess perforation status post sigmoid colectomy with possible sepsis, present on admission, improving. 2. On TPN. 3. Scrotal edema and lower extremity edema. 4. Secondary peritonitis from perforation. 5. Lactic acidosis. 6. Acute renal failure. 7. Hypoalbuminemia. 8. Acute blood loss anemia as expected. 9. Atelectasis. 10.Hypokalemia. 11.Increased WBC. 12.Elevated random glucose. RECOMMENDATIONS AND DISCUSSION: Recommend to continue current medications, continue symptomatic treatment. If patient is discharged, recommend to continue with incentive spirometry and also follow closely with primary physician. Further recommendations to follow. MMODL / IJN: [id number] /
== END 2020-03-15 13:15 | disposition home health service (06) | DRG 853 ==
LOC: EC 01:33 → 4SSUR 03:45
PROVIDERS: ADMIT Surgery; ATTEND Surgery
PROC: 0D1M0Z4 Bypass Descending Colon to Cutaneous, Open Approach (ICD-10-PCS; principal; 2020-03-10)
PROC: 0D9670Z Drainage of Stomach with Drainage Device, Via Natural or Artificial Opening (ICD-10-PCS; principal; 2020-03-10)
PROC: 0DTN0ZZ Resection of Sigmoid Colon, Open Approach (ICD-10-PCS; principal; 2020-03-10)
PROC: 02HV33Z Insertion of Infusion Device into Superior Vena Cava, Percutaneous Approach (ICD-10-PCS; 2020-03-12)
PROC: 3E0436Z Introduction of Nutritional Substance into Central Vein, Percutaneous Approach (ICD-10-PCS; 2020-03-12)
DX: A41.9 Sepsis, unspecified organism (principal); K65.9 Peritonitis, unspecified; K56.609 Unspecified intestinal obstruction, unspecified as to partial versus complete obstruction; N17.9 Acute kidney failure, unspecified; K57.20 Diverticulitis of large intestine with perforation and abscess without bleeding; E87.2 Acidosis; K56.7 Ileus, unspecified; D62 Acute posthemorrhagic anemia; J98.11 Atelectasis; E88.09 Other disorders of plasma-protein metabolism, not elsewhere classified; R65.20 Severe sepsis without septic shock; R13.10 Dysphagia, unspecified; E87.6 Hypokalemia; R31.0 Gross hematuria; N50.89 Other specified disorders of the male genital organs; Q63.1 Lobulated, fused and horseshoe kidney; K21.9 Gastro-esophageal reflux disease without esophagitis; Z79.82 Long term (current) use of aspirin; Z79.899 Other long term (current) drug therapy; Z87.19 Personal history of other diseases of the digestive system; Z98.890 Other specified postprocedural states; Z88.5 Allergy status to narcotic agent
CPT/HCPCS: 36415; 36573; 71045; 74019; 74177; 80048; 80053; 81001; 81003; 82040; 82330; 83605; 83735; 84100; 84145; 84478; 85025; 85027; 85610; 85730; 87040; 88307; 93005; 93970; 96361; 96365; 99285

== ENCOUNTER → 2020-08-03 | Outpatient (CLI) | payer BC ==
[2020-08-03 10:16] LABS: HCT 47.8 % (39.0-53.0); HGB 15.7 gm/dL (13.0-17.5); MCH 28.7 pg (25.0-35.0); MCHC 32.8 g/dL (31.0-37.0); MCV 87.5 fL (80.0-100.0); Platelet Count 246 k/uL (150-450); RBC 5.46 m/uL (4.30-5.90); RDW 14.1 % (11.5-15.5); WBC 6.6 k/uL (3.8-10.6)
[2020-08-03 10:42] LABS: Potassium 4.5 mmol/L (3.5-5.1)
== END | disposition home or self-care (01) ==
LOC: LABPAT 09:21
PROVIDERS: ATTEND Surgery
DX: Z01.812 Encounter for preprocedural laboratory examination (principal)
CPT/HCPCS: 36415; 80051; 85027

== ENCOUNTER 2020-08-13 11:13 | Day surgery (SDC) | payer BC ==
[2020-08-07 11:51] VITALS: BMI 28.0
[~2020-08-13 11:13] MED LIST: LACTATED RINGERS 1,000 ML IV SCH
[2020-08-13 11:39] VITALS: TEMP 97.3
[2020-08-13] MEDS ORDERED: LIDOCAINE 1% (10MG/ML) FOR IV START INTRADERMA ONE (11:41)
[2020-08-13] MEDS ORDERED: PROPOFOL 10 MG/ML 20 ML VIAL IV ONE (11:57)
--- NOTE | 2020-08-13 11:58 | P.GSHP ---
History of Present Illness H&P Date: 08/13/20 Chief Complaint: Change in bowel habits Patient here today for colonoscopy. Last colonoscopy 2016. Personal history of polyps. Recently with diverticulitis requiring Cory's procedure. Scheduled for colostomy reversal tomorrow. Past Medical History Past Medical History: GERD/Reflux Additional Past Medical History / Comment(s): Diverticulitis with rupture 03/2020 History of Any Multi-Drug Resistant Organisms: None Reported Past Surgical History: Bowel Resection, Hernia Repair, Orthopedic Surgery Additional Past Surgical History / Comment(s): bowel resection with colostomy 03/2020, bob carpal tunnel Past Anesthesia/Blood Transfusion Reactions: No Reported Reaction Smoking Status: Former smoker - Past Family History Mother Family Medical History: Deep Vein Thrombosis (DVT) Medications and Allergies Home Medications Medication Instructions Recorded Confirmed Type Aspirin EC [Ecotrin Low Dose] 81 mg PO DAILY 03/05/20 08/13/20 History Cholecalciferol [Vitamin D3 (25 2,000 unit PO DAILY 03/05/20 08/13/20 History Mcg = 1000 Iu)] Glucos Sul 2Kcl/MSM/Chond/C/Mn 1 cap PO DAILY 03/05/20 08/13/20 History [Glucosamine Chondroitin Cap] Omeprazole 20 mg PO DAILY 03/05/20 08/13/20 History Vitamin B Complex 1 cap PO DAILY 03/05/20 08/13/20 History Flaxseed Oil 1,000 mg PO DAILY 08/07/20 08/13/20 History Garlic 1 each PO DAILY 08/07/20 08/13/20 History Allergies Allergy/AdvReac Type Severity Reaction Status Date / Time morphine Allergy Anaphylaxis Verified 08/13/20 11:42 Surgical - Exam Vital Signs Temp Pulse Resp BP Pulse Ox 97.3 F L 73 16 118/80 98 08/13/20 11:37 08/13/20 11:37 08/13/20 11:37 08/13/20 11:37 08/13/20 11:37 Physical exam: General: Well-developed, well-nourished HEENT: Normocephalic, sclerae nonicteric Abdomen: Nontender, nondistended Extremities: No edema Neuro: Alert and oriented Assessment and Plan (1) Change in bowel habits Narrative/Plan: Will proceed with colonoscopy Current Visit: Yes Status: Acute Code(s): R19.4 - CHANGE IN BOWEL HABIT SNOMED Code(s): 516598250
--- NOTE | 2020-08-13 12:13 | P.PCN ---
Preoperative Diagnosis: PREOPERATIVE DIAGNOSIS: Change in bowel habits, diverticulitis POSTOPERATIVE DIAGNOSIS: Diverticulosis PROCEDURE: Colonoscopy ANESTHESIA: [facility] [place] SURGEON: Reuben Montemayor M.D. SPECIMENS: None ENDOSCOPIC PROCEDURE: The patient was placed on the endoscopy table in the left decubitus position. The Olympus colonoscope was inserted into the anus and passed under direct visualization to the distal sigmoid colon. There was some retained stool in the rectal stump that was evacuated. There were no significant neoplastic or inflammatory lesions seen. The scope was then advanced through the stoma to the base of the cecum. The appendiceal orifice was visualized. From that point the scope was slowly withdrawn inspecting all surfaces carefully. There were no neoplastic inflammatory or polypoid lesions throughout the cecum, ascending, transverse, and descending colon. There was mild diverticulosis. The patient was taken to the recovery room in stable condition per anesthesia guidelines. RECOMMENDATIONS: Resume liquid diet. Proceed with colostomy reversal tomorrow.
[2020-08-13 12:37] VITALS: RESP 16
[2020-08-13 13:07] VITALS: BP 117/74; PULSE 88
== END 2020-08-13 13:05 | disposition home or self-care (01) ==
LOC: ORWHC2ENDO 11:13
PROVIDERS: ATTEND Surgery
DX: K57.30 Diverticulosis of large intestine without perforation or abscess without bleeding (principal); K21.9 Gastro-esophageal reflux disease without esophagitis; K57.92 Diverticulitis of intestine, part unspecified, without perforation or abscess without bleeding; F41.9 Anxiety disorder, unspecified; E73.9 Lactose intolerance, unspecified; Z86.010 Personal history of colon polyps; I49.9 Cardiac arrhythmia, unspecified; Z98.890 Other specified postprocedural states; Z87.891 Personal history of nicotine dependence; Z86.19 Personal history of other infectious and parasitic diseases; Z81.8 Family history of other mental and behavioral disorders; Z82.49 Family history of ischemic heart disease and other diseases of the circulatory system; Z83.3 Family history of diabetes mellitus; Z90.49 Acquired absence of other specified parts of digestive tract; Z79.82 Long term (current) use of aspirin; Z79.899 Other long term (current) drug therapy; Z88.5 Allergy status to narcotic agent
CPT/HCPCS: 44388; J2704

== ENCOUNTER 2020-08-14 07:45 | Inpatient (IN) | payer BC ==
[2020-08-07 12:11] VITALS: BMI 28.0
[~2020-08-14 07:45] MED LIST changes: +ACETAMINOPHEN TAB 500 MG TAB PO PRN; +ALVIMOPAN 12 MG CAPSULE PO PRN; +HEPARIN SODIUM,PORCINE/PF 5,000 UNIT/0.5 ML SYRINGE SQ PRN; -LACTATED RINGERS 1,000 ML IV SCH; +MIDAZOLAM 2 MG/2 ML VIAL IV PRN; +fentaNYL (PF) 50 MCG/ML 2 ML AMP IV PRN; +metroNIDAZOLE-NS PMX 500 MG in SALINE 1 100ML.BAG IVPB PRN
[2020-08-14] MEDS ORDERED: LIDOCAINE 1% (10MG/ML) FOR IV START INTRADERMA ONE (08:45)
[2020-08-14] MEDS: LACTATED RINGERS 1,000 ML IV SCH ×2 (08:58→10:49)
--- NOTE | 2020-08-14 09:02 | P.GSHP ---
History of Present Illness H&P Date: 08/14/20 Chief Complaint: Diverticulitis Patient here today for elective reversal of colostomy. Underwent colonoscopy yesterday with only mild diverticulosis seen. He had his Narvaez's procedure performed for perforated diverticulitis. Otherwise doing well. He has lost about 20 pounds since his surgery intentionally. He feels very fit at this time. Past Medical History Additional Past Medical History / Comment(s): Diverticulitis with rupture 03/2020 History of Any Multi-Drug Resistant Organisms: None Reported Past Surgical History: Bowel Resection, Hernia Repair, Orthopedic Surgery Additional Past Surgical History / Comment(s): bowel resection with colostomy 03/2020, bob carpal tunnel Past Anesthesia/Blood Transfusion Reactions: No Reported Reaction Smoking Status: Former smoker - Past Family History Mother Family Medical History: Deep Vein Thrombosis (DVT) Medications and Allergies Home Medications Medication Instructions Recorded Confirmed Type Aspirin EC [Ecotrin Low Dose] 81 mg PO DAILY 03/05/20 08/14/20 History Cholecalciferol [Vitamin D3 (25 2,000 unit PO DAILY 03/05/20 08/14/20 History Mcg = 1000 Iu)] Glucos Sul 2Kcl/MSM/Chond/C/Mn 1 cap PO DAILY 03/05/20 08/14/20 History [Glucosamine Chondroitin Cap] Omeprazole 20 mg PO DAILY 03/05/20 08/14/20 History Vitamin B Complex 1 cap PO DAILY 03/05/20 08/14/20 History Flaxseed Oil 1,000 mg PO DAILY 08/07/20 08/13/20 History Garlic 1 each PO DAILY 08/07/20 08/14/20 History Allergies Allergy/AdvReac Type Severity Reaction Status Date / Time morphine Allergy Anaphylaxis Verified 08/14/20 08:32 Surgical - Exam Vital Signs Temp Pulse Resp BP Pulse Ox 97.5 F L 76 16 116/78 98 08/14/20 08:34 08/14/20 08:34 08/14/20 08:34 08/14/20 08:34 08/14/20 08:34 Physical exam: General: Well-developed, well-nourished HEENT: Normocephalic, sclerae nonicteric Abdomen: Nontender, nondistended, left-sided ostomy Extremities: No edema Neuro: Alert and oriented Assessment and Plan (1) Sigmoid diverticulitis Narrative/Plan: 54-year-old male with history of diverticulitis. We'll proceed with colostomy reversal at this time. Risks of bleeding, infection, scarring, bladder bowel and ureteral injury, leak, need for temporary or permanent ostomy, hernia reviewed. He understands and wishes to proceed. Current Visit: No Status: Acute Code(s): K57.32 - DVTRCLI OF LG INT W/O PERFORATION OR ABSCESS W/O BLEEDING SNOMED Code(s): 692720449
[2020-08-14] MEDS: DEXAMETHASONE SOD PHOSPHATE 4 MG/ML 1 ML VIAL IV ONE ×2 (09:05→16:52)
[2020-08-14] MEDS: ONDANSETRON 4 MG/2 ML VIAL IVP ONE ×2 (09:05→16:52)
[2020-08-14] MEDS ORDERED: MIDAZOLAM 2 MG/2 ML VIAL IVP ONE (09:27)
[2020-08-14] MEDS ORDERED: fentaNYL (PF) 50 MCG/ML 2 ML AMP IVP ONE (09:27)
[2020-08-14] MEDS: SCOPOLAMINE 1.5MG/72HR PATCH TRANSDERM ONE ×2 (09:51→16:52)
--- NOTE | 2020-08-14 10:38 | P.ANPRN ---
Procedure Note - Anesthesia - Nerve Block Performed Bilateral Erector Spinae Single Date of Procedure: 08/14/20 Procedure Start Time: :27 Procedure Stop Time: 09:36 Location of Patient: PreOp Indication: Acute Post-Operative Pain, Dx/Pain Location (Abd), Requested by Surgeon Specifically requested for management of pain by DrAc: Reuben Montemayor Sedation Type: Sedate with meaningful contact maintained Preparation: Sterile Prep Position: Prone Catheter: None Needle Types: Pajunk Needle Gauge: 21 Ultrasound used to visualize needle placement: Yes (in plane) Ultrasound used to observe medication spread: Yes Injectate: 0.5% Ropivacaine (see comment for volume) (30cc 0.25% for each side) Blood Aspirated: No Pain Paresthesia on Injection Noted: No Resistance on Injection: Normal Image Stored and Saved: Yes Events: Uneventful and Well Tolerated
[2020-08-14] MEDS ORDERED: GLUCAGON 1 MG/ML VIAL ONE (10:41)
[2020-08-14] MEDS ORDERED: ROCURONIUM 10 MG/ML (5 ML VIAL) IV ONE (10:41)
[2020-08-14] MEDS ORDERED: ePHEDrine SULFATE/0.9% NACL/PF 50 MG/5 ML SYRINGE IV ONE (10:41)
[2020-08-14] MEDS ORDERED: GLYCOPYRROLATE 0.2 MG/ML 2 ML VIAL ONE (10:41)
[2020-08-14] MEDS ORDERED: SUCCINYLCHOLINE CHLORIDE 100 MG/5 ML SYR IV ONE (10:41)
[2020-08-14] MEDS ORDERED: PROPOFOL 10 MG/ML 20 ML VIAL IV ONE (10:41)
[2020-08-14] MEDS ORDERED: PHENYLEPHRINE-0.9% NACL SYG 1,000 MCG/10 ML SYRINGE ONE (10:41)
[2020-08-14] MEDS ORDERED: MIDAZOLAM 2 MG/2 ML VIAL ONE (10:41)
[2020-08-14] MEDS ORDERED: NEOSTIGMINE 1 MG/ML 10 ML VIAL ONE (10:41)
[2020-08-14] MEDS ORDERED: LIDOCAINE 1% INJ 10MG/ML (20 ML MDV) ONE (10:41)
[2020-08-14] MEDS ORDERED: fentaNYL (PF) 50 MCG/ML 2 ML AMP ONE (10:41)
[2020-08-14] MEDS ORDERED: LACTATED RINGERS 1,000 ML IV ONE ×2 (12:10→12:46)
[2020-08-14] MEDS ORDERED: METOCLOPRAMIDE 5 MG/ML 2 ML VIAL IVP PRN (14:55)
[2020-08-14] MEDS: HYDROmorphone 0.5 MG/0.5 ML SYRINGE IVP ONE ×4 (15:10→15:35)
--- NOTE | 2020-08-14 15:13 | P.OP ---
Date of Procedure: 08/14/20 Procedure(s) Performed: PREOPERATIVE DIAGNOSIS: Diverticulitis POSTOPERATIVE DIAGNOSIS: Same PROCEDURE: Colostomy reversal, mobilization splenic flexure, diverting loop ileostomy, partial omentectomy SURGEON: Sim EBL: 100 mL ANESTHESIA: General COMPLICATIONS: None OPERATIVE PROCEDURE: Patient was placed on the operative table in the supine position. The patient was placed under general anesthesia. The patient was then placed in lithotomy. The stoma was closed using a pursestring 2-0 Vicryl stitch. The abdomen was prepped and draped in usual sterile fashion. An elliptical incision was made around the colostomy. Dissection through the subcutaneous fat took place using electrocautery. The stoma was fully mobilized and reduced back into the peritoneal cavity. At that time a vertical incision was made using a scalpel through the previous midline incision. The previous circular scars from the wick sites were excised. The patient had some adhesions between the omentum and the abdominal wall that were lysed. There was a single adhesion between the terminal ileum and the rectal stump which was mobilized sharply. No serosal tear was seen. The bowel was reduced back into the upper abdomen. The anticipated site of resection of the sigmoid colon appeared to reach into the pelvis without tension. Attention was then directed to the rectal stump. An additional 5 cm of so of the distal sigmoid colon and proximal rectum was excised at that time using both the LigaSure and a contour stapler. At that time the colon proximal to the stoma was carefully dissected. A colotomy was created close to the stoma. At this time the 25 sizer was attempted to be placed within the lumen of the bowel proximally. Unfortunately the bowel was somewhat narrow for a distance of approximately 15-20 cm. This was despite giving a dose of glucagon to see if this would decrease his spasticity. It was identified that the bowel more proximal that did seem to be large enough in caliber to accommodate a 25 or 29 EEA stapler would not reach the pelvis. For that reason we proceeded with a mobilization of the splenic flexure. This took place using both blunt dissection electrocautery and the LigaSure device. The left colic artery was divided. At that time we had adequate length to reach the pelvis. The omentum was excised as it appeared ischemic. The bowel was opened again and the 25 and 29 sizer fit into the bowel quite easily. Prior to doing so the sizers were used at the site of the rectal stump to be sure that the 29 EEA would come up to the staple line. Unfortunately the patient's rectum was also somewhat spastic and the 29 EEA was not able to be advanced proximally to the rectal stump region. The 25 EEA stapler was then chosen. A 25 covidian stapler anvil was advanced into the lumen of the colon proximally through the colotomy site. The colon was then divided using the linear stapler. The anvil was brought out adjacent to the staple line at that point and a 3-0 silk pursestring suture was utilized around the anvil. The stapler was then inserted into the anus and brought up to the staple line. The obturator was brought out anterior to the staple line. The 2 portions of the stapler were connected to one another and subsequently tightened and fired. The bowel was clamped proximal to the anastomosis. The rigid sigmoidoscope was utilized to fill the anastomotic site nicely with air. There was saline in the pelvis at this time. Unfortunately this time we identified a few air bubbles coming from the posterior aspect of the anastomotic site. The anastomosis was inspected circumferentially numerous times and I could not demonstrate the leak a second time. I could not visualize a defect in the anastomosis. There was no tension on the anastomosis. At that time I decided that the safest option was to leave the patient with a diverting loop ileostomy. A drain was placed in the pelvis adjacent to the anastomosis. This was brought out through the right lower quadrant and sutured to the skin using a 3-0 silk stitch. The fascia at the colostomy defect was closed partially using interrupted [id number] #1 Vicryl sutures. The terminal ileum was then brought out through this and later matured. The abdomen was irrigated with saline. The liver, stomach, visualized colon, and small bowel appeared normal. The midline fascia was then reapproximated using 3 separate double-stranded #1 PDS sutures. I did use #1 Ethibond sutures at the previous umbilical hernia site where there was mesh. The subcutaneous tissues were closed using 2-0 Vicryl sutures. The skin was then closed using sudarshan. The loop ileostomy was then matured. A large red rubber catheter was used as a bridge. This was sutured to the skin using 3-0 silk sutures. The proximal portion of the loop was imbricated using 3-0 Vicryl sutures. A colostomy appliance was applied. Sterile dressings were then applied. DISPOSITION: Stable to recovery room
[2020-08-14] MEDS: D5-0.45% NACL WITH KCL 20MEQ/L 1,000 ML IV SCH ×2 (16:52→20:46)
[2020-08-14] MEDS: HEPARIN SODIUM,PORCINE/PF 5,000 UNIT/0.5 ML SYRINGE SQ SCH ×2 (16:53→23:17)
[2020-08-14] MEDS: ALVIMOPAN 12 MG CAPSULE PO SCH (20:46)
[2020-08-14] MEDS: FAMOTIDINE 20 MG/2 ML VIAL IV SCH (20:46)
[2020-08-14] MEDS: HYDROmorphone 1 MG/ML 1 ML SYRINGE IVP PRN (20:59)
[2020-08-15] MEDS: LACTATED RINGERS 1,000 ML IV SCH (04:23)
[2020-08-15] MEDS: D5-0.45% NACL WITH KCL 20MEQ/L 1,000 ML IV SCH ×3 (04:24→23:54)
[2020-08-15 08:18] LABS: Basophils % (A) 0 %; Eosinophils % (A) 0 %; HCT 44.9 % (39.0-53.0); HGB 15.1 gm/dL (13.0-17.5); Lymphocytes # (A) 1.4 k/uL (1.0-4.8); Lymphocytes % (A) 9 %; MCH 29.4 pg (25.0-35.0); MCHC 33.6 g/dL (31.0-37.0); MCV 87.6 fL (80.0-100.0); Mean Platelet Volume 6.8; Monocytes # (A) 0.9 k/uL (0-1.0); Monocytes % (A) 6 %; Neutrophils # (A) 13.1 k/uL (1.3-7.7); Neutrophils % (A) 85 %; Platelet Count 259 k/uL (150-450); RBC 5.12 m/uL (4.30-5.90); RDW 13.8 % (11.5-15.5); WBC 15.5 k/uL (3.8-10.6)
[2020-08-15 08:30] LABS: African American GFR (CKD) >90 (>60 ml/min/1.73 sqM); Anion Gap 6 mmol/L; Blood Urea Nitrogen 10 mg/dL (9-20); Calcium 8.8 mg/dL (8.4-10.2); Carbon Dioxide 27 mmol/L (22-30); Chloride 104 mmol/L (98-107); Glucose 113 mg/dL (74-99); Non-African American GFR(CKD) 89 (>60 ml/min/1.73 sqM); Potassium 4.3 mmol/L (3.5-5.1); Sodium 137 mmol/L (137-145)
[2020-08-15] MEDS: FAMOTIDINE 20 MG/2 ML VIAL IV SCH ×2 (09:15→20:50)
[2020-08-15] MEDS: ALVIMOPAN 12 MG CAPSULE PO SCH ×2 (09:15→20:50)
[2020-08-15] MEDS: HEPARIN SODIUM,PORCINE/PF 5,000 UNIT/0.5 ML SYRINGE SQ SCH ×3 (09:15→23:55)
[2020-08-15] MEDS: HYDROmorphone 1 MG/ML 1 ML SYRINGE IVP PRN (09:16)
--- NOTE | 2020-08-15 10:52 | P.PN ---
Subjective Progress Note Date: 08/15/20 Principal diagnosis: Diverticulitis Patient doing fairly well today. T-max 99. Mild pain particularly at the drain site. No ostomy functioning. No nausea or vomiting. Objective - Vital Signs Vital signs: Vital Signs Temp 99.0 F 08/15/20 07:58 Pulse 69 08/15/20 07:58 Resp 19 08/15/20 07:58 BP 166/83 08/15/20 07:58 Pulse Ox 95 08/15/20 07:58 Intake & Output 08/14/20 08/15/20 08/15/20 18:59 06:59 18:59 Intake Total 2650 1250 Output Total 400 990 Balance 2250 260 Weight 84.9 kg Intake: IV 2650 Intake, IV Titration 1000 Amount D5-0.45% NaCl with KCl 1000 20Meq/l 1,000 ml @ 125 mls/hr IV .Q8H TO Rx#: [id number] Oral 250 Output: Drainage 140 Right Abdominal DEMI drain 140 Urine 300 850 Emesis 0 Estimated Blood Loss 100 Other: Voiding Method Indwelling Catheter # Voids 1 # Bowel Movements 0 - Exam Abdomen: Soft, nondistended, dressing clean and dry, left-sided ostomy pink - Labs CBC & Chem 7: 08/15/20 07:41 08/15/20 07:41 Labs: Abnormal Lab Results - Last 24 Hours (Table) 08/15/20 08/15/20 Range/Units 07:41 07:41 WBC 15.5 H (3.8-10.6) k/uL Neutrophils # 13.1 H (1.3-7.7) k/uL Glucose 113 H (74-99) mg/dL Assessment and Plan (1) Sigmoid diverticulitis Narrative/Plan: Patient doing fairly well today. Keep on clear liquids. Remove Dotson catheter tomorrow morning. Add Toradol for pain control. Ostomy consult placed. Current Visit: No Status: Acute Code(s): K57.32 - DVTRCLI OF LG INT W/O PERFORATION OR ABSCESS W/O BLEEDING SNOMED Code(s): 834901295
[2020-08-15] MEDS: KETOROLAC 15 MG/ML 1 ML VIAL IVP SCH ×3 (12:03→23:55)
--- NOTE | 2020-08-15 21:24 | P.CONS ---
History of Present Illness - Reason for Consult Consult date: 08/15/20 Medical management Requesting physician: Reuben Montemayor - Chief Complaint Abdominal surgery - History of Present Illness History of presenting complaint: This is a pleasant 54 year patient . In March 2020 patient was found over perforated sigmoid diverticular disease with ileus. Patient underwent sigmoid colectomy with end colostomy. By this Dr. Craft. Patient yesterday had undergone colostomy reversal but due to the anatomy discovered while surgery patient had to have developed a new ileostomy created. Patient has a DEMI drain. Some abdominal pain. No nausea vomiting. Review of systems: GEN.: Tired EYES: None HEENT: None NECK: None RESPIRATORY: None CARDIOVASCULAR: None GASTROINTESTINAL: As above GENITOURINARY: None MUSCULOSKELETAL: None LYMPHATICS: None HEMATOLOGICAL: None PSYCHIATRY: None NEUROLOGICAL: None Past medical history to include: Diverticulitis, hernia repair Social history: Lives with his . No history of smoking and alcohol. Employed Family history: Reviewed, noncontributory to presentation Physical examination: VITAL SIGNS: 98.7, 61, 18, 150/70, 97% room air GENERAL: BMI 27.6, laying in bed, comfortable. EYES: Pupils equal. Conjunctiva normal. HEENT: External appearance of nose and ears normal, oral cavity grossly normal. NECK: JVD not raised; masses not palpable. HEART: First and second heart sounds are normal; no edema. LUNGS: Respiratory rate normal; clear to auscultation. ABDOMEN: Soft, right DEMI drain. Midline incision with a dressing, left ileostomy, liver spleen not palpable, no masses palpable. Tenderness. PSYCH: Alert and oriented x3; mood and affect normal. NEUROLOGICAL: Cranial nerves grossly intact; no facial asymmetry, power and sensation grossly intact. LYMPHATICS: No lymph nodes palpable in the axilla and neck INVESTIGATIONS, reviewed in the clinical context: WBC 15.5 hemoglobin 15.1 platelets 259 potassium 4.3 creatinine 0.96 Coronavirus [PCR] not detected Assessment and plan: -Creation of a new diverging ileostomy. Prior colostomy removed Patient is getting IV fluids. Clear liquids -Leukocytosis, reactive Follow clinically. No current evidence of infection -GERD on Prilosec Care was discussed with the patient. Encouraged to sit up in a chair. Continue with pain control and IV fluids. Thank you Dr. Craft Past Medical History Additional Past Medical History / Comment(s): Diverticulitis with rupture 03/2020 History of Any Multi-Drug Resistant Organisms: None Reported Past Surgical History: Bowel Resection, Hernia Repair, Orthopedic Surgery Additional Past Surgical History / Comment(s): bowel resection with colostomy 03/2020, bob carpal tunnel Past Anesthesia/Blood Transfusion Reactions: No Reported Reaction Past Psychological History: No Psychological Hx Reported Smoking Status: Former smoker Past Alcohol Use History: Occasional Additional Past Alcohol Use History / Comment(s): started smoking age 18, had quit for 12 yrs and restarted 2019 Past Drug Use History: None Reported - Past Family History Mother Family Medical History: Deep Vein Thrombosis (DVT) Medications and Allergies Home Medications Medication Instructions Recorded Confirmed Type Aspirin EC [Ecotrin Low Dose] 81 mg PO DAILY 03/05/20 08/14/20 History Cholecalciferol [Vitamin D3 (25 2,000 unit PO DAILY 03/05/20 08/14/20 History Mcg = 1000 Iu)] Glucos Sul 2Kcl/MSM/Chond/C/Mn 1 cap PO DAILY 03/05/20 08/14/20 History [Glucosamine Chondroitin Cap] Omeprazole 20 mg PO DAILY 03/05/20 08/14/20 History Vitamin B Complex 1 cap PO DAILY 03/05/20 08/14/20 History Flaxseed Oil 1,000 mg PO DAILY 08/07/20 08/13/20 History Garlic 1 each PO DAILY 08/07/20 08/14/20 History Allergies Allergy/AdvReac Type Severity Reaction Status Date / Time morphine Allergy Anaphylaxis Verified 08/14/20 08:32 Physical Exam Vitals: Vital Signs Temp Pulse Resp BP Pulse Ox 08/15/20 07:58 99.0 F 69 19 166/83 95 08/15/20 01:20 98.5 F 87 153/85 97 08/14/20 19:11 98.3 F 96 97 08/14/20 18:58 72 153/91 96 08/14/20 18:43 86 146/91 95 08/14/20 18:28 92 134/78 95 08/14/20 18:13 84 148/98 96 08/14/20 17:58 81 158/98 95 08/14/20 17:43 89 154/99 08/14/20 17:28 81 151/91 08/14/20 17:13 90 153/100 08/14/20 16:58 88 145/88 08/14/20 15:59 86 16 136/77 98 08/14/20 15:47 98.4 F 81 16 155/84 95 08/14/20 15:45 76 16 127/69 98 08/14/20 15:29 73 16 125/73 96 08/14/20 15:16 147/89 08/14/20 15:15 81 16 141/75 96 08/14/20 15:00 85 16 141/75 96 08/14/20 14:52 99.1 F 67 16 160/87 96 Intake and Output 08/14/20 08/15/20 08/15/20 22:59 06:59 14:59 Intake Total 1250 Output Total 430 610 Balance -430 640 Intake: Intake, IV Titration 1000 Amount D5-0.45% NaCl with KCl 1000 20Meq/l 1,000 ml @ 125 mls/hr IV .Q8H [facility] Rx#: [id number] Oral 250 Output: Drainage 80 60 Right Abdominal DEMI drain 80 60 Urine 350 550 Emesis 0 Other: Voiding Method Indwelling Catheter # Voids 1 # Bowel Movements 0 Weight 84.9 kg Results CBC & Chem 7: 08/15/20 07:41 08/15/20 07:41 Labs: Abnormal Lab Results - Last 24 Hours (Table) 08/15/20 08/15/20 Range/Units 07:41 07:41 WBC 15.5 H (3.8-10.6) k/uL Neutrophils # 13.1 H (1.3-7.7) k/uL Glucose 113 H (74-99) mg/dL
[2020-08-16] MEDS: LACTATED RINGERS 1,000 ML IV SCH ×2 (01:00→23:47)
[2020-08-16] MEDS: KETOROLAC 15 MG/ML 1 ML VIAL IVP SCH ×3 (05:51→18:14)
[2020-08-16 07:33] LABS: African American GFR (CKD) >90 (>60 ml/min/1.73 sqM); Anion Gap 4 mmol/L; Blood Urea Nitrogen 8 mg/dL (9-20); Calcium 8.6 mg/dL (8.4-10.2); Carbon Dioxide 29 mmol/L (22-30); Chloride 107 mmol/L (98-107); Glucose 109 mg/dL (74-99); Non-African American GFR(CKD) 84 (>60 ml/min/1.73 sqM); Potassium 4.2 mmol/L (3.5-5.1); Sodium 140 mmol/L (137-145)
[2020-08-16 09:06] LABS: Basophils # (A) 0.03 X 10*3/uL (0.00-0.10); Basophils % (A) 0.3 %; Eosinophils # (A) 0.07 X 10*3/uL (0.04-0.35); Eosinophils % (A) 0.6 %; HCT 41.3 % (39.6-50.0); HGB 13.4 g/dL (13.0-17.0); Lymphocytes # (A) 1.84 X 10*3/uL (0.90-5.00); Lymphocytes % (A) 16.8 %; MCH 28.9 pg (27.0-32.0); MCHC 32.4 g/dL (32.0-37.0); Mean Platelet Volume 10.1 fL (9.5-12.2); Monocytes # (A) 0.97 X 10*3/uL (0.20-1.00); Monocytes % (A) 8.8 %; Neutrophils # (A) 8.02 X 10*3/uL (1.80-7.70); Platelet Count 237 X 10*3/uL (140-440); RBC 4.64 X 10*6/uL (4.40-5.60); WBC 10.98 X 10*3/uL (4.50-10.00)
[2020-08-16] MEDS: HYDROmorphone 1 MG/ML 1 ML SYRINGE IVP PRN (09:45)
[2020-08-16] MEDS: FAMOTIDINE 20 MG/2 ML VIAL IV SCH ×2 (09:45→20:19)
[2020-08-16] MEDS: ALVIMOPAN 12 MG CAPSULE PO SCH ×2 (09:45→20:20)
[2020-08-16] MEDS: HEPARIN SODIUM,PORCINE/PF 5,000 UNIT/0.5 ML SYRINGE SQ SCH ×2 (09:45→18:14)
[2020-08-16] MEDS: D5-0.45% NACL WITH KCL 20MEQ/L 1,000 ML IV SCH ×3 (09:48→18:15)
--- NOTE | 2020-08-16 09:57 | P.PN ---
Subjective Progress Note Date: 08/16/20 Principal diagnosis: Diverticulitis Patient doing well today. He is up in the chair. Mild pain. CBC looks good. Tolerating liquids. Dotson catheter is out. Ostomy is functioning. Objective - Vital Signs Vital signs: Vital Signs Temp 98.6 F 08/16/20 07:44 Pulse 62 08/16/20 07:44 Resp 18 08/16/20 07:44 BP 183/84 08/16/20 07:44 Pulse Ox 95 08/16/20 07:44 Intake & Output 08/15/20 08/16/20 08/16/20 18:59 06:59 18:59 Intake Total 1520 Output Total 1020 1145 Balance -1020 375 Intake: Intake, IV Titration 1000 Amount D5-0.45% NaCl with KCl 1000 20Meq/l 1,000 ml @ 125 mls/hr IV .Q8H [facility] Rx#: [id number] Oral 520 Output: Drainage 20 70 Right Abdominal DEMI drain 20 70 Urine 1000 1075 Uretheral (Dotson) 275 Other: Voiding Method Indwelling Catheter Indwelling Catheter # Voids 1 0 - Exam Abdomen: Soft, mild distention, mild tenderness, incision clean and dry, DEMI serosanguineous - Labs CBC & Chem 7: 08/16/20 05:53 08/16/20 05:53 Labs: Abnormal Lab Results - Last 24 Hours (Table) 08/16/20 08/16/20 Range/Units 05:53 05:53 WBC 10.98 H (4.50-10.00) X 10*3/uL Immature Gran # 0.05 H (0.00-0.04) X 10*3/uL Neutrophils # 8.02 H (1.80-7.70) X 10*3/uL BUN 8 L (9-20) mg/dL Glucose 109 H (74-99) mg/dL Assessment and Plan (1) Sigmoid diverticulitis Narrative/Plan: Increase diet. Ambulate. Await ostomy consult. Current Visit: No Status: Acute Code(s): K57.32 - DVTRCLI OF LG INT W/O PERFORATION OR ABSCESS W/O BLEEDING SNOMED Code(s): 369753328
--- NOTE | 2020-08-16 19:42 | P.PN ---
Progress Note - Text Progress Note Date: 08/16/20 - Chief Complaint Abdominal surgery History of presenting complaint: This is a pleasant 54 year patient . In March 2020 patient was found over perforated sigmoid diverticular disease with ileus. Patient underwent sigmoid colectomy with end colostomy. By this Dr. Craft. had undergone colostomy reversal but due to the anatomy discovered while surgery patient had to have a new ileostomy created. Patient has a DEMI drain. Today: Patient had tolerated clear liquids. Advance by surgery to full liquids today. Some liquid stool in the ileostomy bag. Some of abdominal pain. Patient has been out of bed. No nausea vomiting. Review of systems: Was done for constitutional, cardiovascular, GI, pulmonary. relevant finding as above Active Medications Hydrocodone Bitart/Acetaminophen (Hydrocodone/Apap 7.5-325mg 1 Each Tab) 1 each PO Q6H PRN PRN Reason: Pain Alvimopan (Alvimopan 12 Mg Capsule) 12 mg PO BID [facility] Stop: 08/21/20 09:01 Last Admin: 08/16/20 09:45 Dose: 12 mg Documented by: Famotidine (Famotidine 20 Mg/2 Ml Vial) 20 mg IV BID [facility] Last Admin: 08/16/20 09:45 Dose: 20 mg Documented by: Heparin Sodium (Porcine) (Heparin Sodium,Porcine/Pf 5,000 Unit/0.5 Ml Syringe) 5,000 unit SQ Q8HR [facility] Last Admin: 08/16/20 18:14 Dose: 5,000 unit Documented by: Hydromorphone HCl (Hydromorphone 1 Mg/Ml 1 Ml Syringe) 1 mg IVP Q3HR PRN PRN Reason: Severe Pain Last Admin: 08/16/20 09:45 Dose: 1 mg Documented by: Lactated Ringer's (Lactated Ringers) 1,000 mls @ 20 mls/hr IV .Q24H [facility] Last Admin: 08/16/20 01:00 Dose: Not Given Documented by: Potassium Chloride/Dextrose/Sod Cl (D5%-1/2ns-Kcl 20 Meq/L Iv Solution) 1,000 mls @ 125 mls/hr IV .Q8H [facility] Last Admin: 08/16/20 18:15 Dose: 125 mls/hr Documented by: Ketorolac Tromethamine (Ketorolac 15 Mg/Ml 1 Ml Vial) 15 mg IVP Q6HR TO Stop: 08/20/20 12:01 Last Admin: 08/16/20 18:14 Dose: 15 mg Documented by: Metoclopramide HCl (Metoclopramide 5 Mg/Ml 2 Ml Vial) 10 mg IVP Q6HR PRN PRN Reason: Nausea and Vomiting Past medical history to include: Diverticulitis, hernia repair Social history: Lives with his . No history of smoking and alcohol. Employed Family history: Reviewed, noncontributory to presentation Physical examination: VITAL SIGNS: 97.9, 73, 18, 136/77, 95% room air GENERAL: BMI 27.6, laying in bed, comfortable. EYES: Pupils equal. Conjunctiva normal. HEENT: External appearance of nose and ears normal, oral cavity grossly normal. NECK: JVD not raised; masses not palpable. HEART: First and second heart sounds are normal; no edema. LUNGS: Respiratory rate normal; clear to auscultation. ABDOMEN: Soft, right DEMI drain. Midline incision with a dressing, left ileostomy, liver spleen not palpable, no masses palpable. Tenderness. PSYCH: Alert and oriented x3; mood and affect normal. INVESTIGATIONS, reviewed in the clinical context: August 16: WBC 10.9 hemoglobin 13.4 potassium 4.2 WBC 15.5 hemoglobin 15.1 platelets 259 potassium 4.3 creatinine 0.96 Coronavirus [PCR] not detected Assessment and plan: -Creation of a new diverging ileostomy. Prior colostomy removed Patient is getting IV fluids. Advance to full liquids -Leukocytosis, reactive -improving Follow clinically. No current evidence of infection -GERD on Prilosec Discussed with patient and . Increase activity. Full liquid diet. Thank you Dr. Craft
[2020-08-17] MEDS: D5-0.45% NACL WITH KCL 20MEQ/L 1,000 ML IV SCH ×3 (00:33→16:29)
[2020-08-17] MEDS: HEPARIN SODIUM,PORCINE/PF 5,000 UNIT/0.5 ML SYRINGE SQ SCH ×3 (00:33→16:32)
[2020-08-17] MEDS: KETOROLAC 15 MG/ML 1 ML VIAL IVP SCH ×4 (00:34→16:29)
[2020-08-17 07:20] VITALS: RESP 16
[2020-08-17] MEDS: HYDROcodone/APAP 7.5-325MG 1 EACH TAB PO PRN ×3 (08:34→21:46)
[2020-08-17] MEDS: ALVIMOPAN 12 MG CAPSULE PO SCH (08:35)
[2020-08-17] MEDS: FAMOTIDINE 20 MG/2 ML VIAL IV SCH ×2 (08:35→21:47)
[2020-08-17 09:39] LABS: Basophils % (A) 0 %; Eosinophils # (A) 0.4 k/uL (0-0.7); Eosinophils % (A) 4 %; HGB 14.5 gm/dL (13.0-17.5); Lymphocytes # (A) 1.6 k/uL (1.0-4.8); Lymphocytes % (A) 17 %; MCH 29.4 pg (25.0-35.0); MCHC 33.8 g/dL (31.0-37.0); MCV 86.9 fL (80.0-100.0); Monocytes # (A) 0.6 k/uL (0-1.0); Monocytes % (A) 6 %; Neutrophils # (A) 6.8 k/uL (1.3-7.7); Neutrophils % (A) 72 %; Platelet Count 239 k/uL (150-450); RBC 4.94 m/uL (4.30-5.90); RDW 13.4 % (11.5-15.5); WBC 9.4 k/uL (3.8-10.6)
--- NOTE | 2020-08-17 11:00 | P.PN ---
<Patricia Milton - Last Filed: 08/17/20 10:51> Subjective Progress Note Date: 08/17/20 CHIEF COMPLAINT: diverticulitis HISTORY OF PRESENT ILLNESS: patient is postop day #3 status post colostomy reversal, mobilization splenic flexure, diverting loop ileostomy, partial omentectomy. Patient reports that his pain is tolerable. He denies any nausea or vomiting. He is on a full liquid diet. His ostomy is functioning. He denies any nausea or vomiting. Afebrile. WBC 9.4 Hgb 14.5 DEMI drain output and 160 mL serosanguineous fluid PHYSICAL EXAM: VITAL SIGNS: Reviewed. GENERAL: Well-developed in no acute distress. HEENT: No sclera icterus. Extraocular movements grossly intact. Moist buccal mucosa. Head is atraumatic, normocephalic. ABDOMEN: Soft. Mildly distended. Incision site minimal bloody oozing at distal aspect of incision. Otherwise incisions clean dry and intact. Ostomy on the left and functioning. DEMI drain serosanguineous fluid NEUROLOGIC: Alert and oriented. Cranial nerves II through XII grossly intact. ASSESSMENT: 1. Diverticulitis status post Colostomy reversal, mobilization splenic flexure, diverting loop ileostomy, partial omentectomy PLAN: -patient scheduled for ostomy teaching today -Continue full liquid diet -Hep-Lock IV -Incisional dressing changed -Increase activity -Encouraged patient to use incentive spirometer -Discontinue Entereg -GI prophylaxis Pepcid and DVT prophylaxis subcu heparin Physician Brass Cutter note has been reviewed by physician. Signing provider agrees with the documented findings, assessment, and plan of care. Objective - Vital Signs Vital signs: Vital Signs Temp 98.8 F 08/17/20 07:19 Pulse 88 08/17/20 10:26 Resp 16 08/17/20 10:26 BP 131/90 08/17/20 07:19 Pulse Ox 94 L 08/17/20 07:19 Intake & Output 08/16/20 08/17/20 08/17/20 18:59 06:59 18:59 Intake Total 1520 200 Output Total 320 380 80 Balance -320 1140 120 Intake: Intake, IV Titration 1000 Amount D5-0.45% NaCl with KCl 1000 20Meq/l 1,000 ml @ 125 mls/hr IV .Q8H [facility] Rx#: [id number] Oral 520 200 Output: Drainage 20 80 80 Right Abdominal DEMI drain 20 80 80 Urine 300 Stool 300 Other: Voiding Method Toilet Toilet Urinal Urinal # Voids 2 2 - Labs CBC & Chem 7: 08/17/20 09:21 08/16/20 05:53 <Reuben Montemayor - Last Filed: 08/17/20 12:45> Subjective As above. Patient doing well today. Ostomy putting out more liquid than yesterday. We will add Imodium. Await ostomy evaluation. Probable discharge tomorrow. Objective - Vital Signs Vital signs: Vital Signs Temp 98.8 F 08/17/20 07:19 Pulse 88 08/17/20 10:26 Resp 16 08/17/20 10:26 BP 131/90 08/17/20 07:19 Pulse Ox 94 L 08/17/20 07:19 Intake & Output 08/16/20 08/17/20 08/17/20 18:59 06:59 18:59 Intake Total 1520 200 Output Total 320 380 80 Balance -320 1140 120 Intake: Intake, IV Titration 1000 Amount D5-0.45% NaCl with KCl 1000 20Meq/l 1,000 ml @ 125 mls/hr IV .Q8H [facility] Rx#: [id number] Oral 520 200 Output: Drainage 20 80 80 Right Abdominal DEMI drain 20 80 80 Urine 300 Stool 300 Other: Voiding Method Toilet Toilet Urinal Urinal # Voids 2 2 - Labs CBC & Chem 7: 08/17/20 09:21 08/16/20 05:53 Assessment and Plan (1) Sigmoid diverticulitis Current Visit: No Status: Acute Code(s): K57.32 - DVTRCLI OF LG INT W/O PERFORATION OR ABSCESS W/O BLEEDING SNOMED Code(s): 488684430
[2020-08-17] MEDS: LOPERAMIDE 2 MG CAP PO SCH ×3 (12:57→21:47)
--- NOTE | 2020-08-17 22:55 | P.PN ---
Progress Note - Text Progress Note Date: 08/17/20 - Chief Complaint Abdominal surgery History of presenting complaint: This is a pleasant 54 year patient . In March 2020 patient was found over perforated sigmoid diverticular disease with ileus. Patient underwent sigmoid colectomy with end colostomy. By this Dr. Craft. had undergone colostomy reversal but due to the anatomy discovered while surgery patient had to have a new ileostomy created. Patient has a DEMI drain. Started on clear liquid diet. Today: Abdominal pain is better. Advance to full liquid diet. Liquid stool in the ileostomy bag. It is better. Has been out of bed. Review of systems: Was done for constitutional, cardiovascular, GI, pulmonary. relevant finding as above Active Medications Hydrocodone Bitart/Acetaminophen (Hydrocodone/Apap 7.5-325mg 1 Each Tab) 1 each PO Q6H PRN PRN Reason: Pain Last Admin: 08/17/20 21:46 Dose: 1 each Documented by: Famotidine (Famotidine 20 Mg/2 Ml Vial) 20 mg IV BID [facility] Last Admin: 08/17/20 21:47 Dose: 20 mg Documented by: Heparin Sodium (Porcine) (Heparin Sodium,Porcine/Pf 5,000 Unit/0.5 Ml Syringe) 5,000 unit SQ Q8HR TO Last Admin: 08/17/20 16:32 Dose: 5,000 unit Documented by: Hydromorphone HCl (Hydromorphone 1 Mg/Ml 1 Ml Syringe) 1 mg IVP Q3HR PRN PRN Reason: Severe Pain Last Admin: 08/16/20 09:45 Dose: 1 mg Documented by: Lactated Ringer's (Lactated Ringers) 1,000 mls @ 20 mls/hr IV .Q24H [facility] Last Admin: 08/16/20 23:47 Dose: Not Given Documented by: Potassium Chloride/Dextrose/Sod Cl (D5%-1/2ns-Kcl 20 Meq/L Iv Solution) 1,000 mls @ 20 mls/hr IV .Q24H [facility] Last Admin: 08/17/20 16:29 Dose: 20 mls/hr Documented by: Ketorolac Tromethamine (Ketorolac 15 Mg/Ml 1 Ml Vial) 15 mg IVP Q6HR [facility] Stop: 08/20/20 12:01 Last Admin: 08/17/20 16:29 Dose: 15 mg Documented by: Loperamide HCl (Loperamide 2 Mg Cap) 4 mg PO QID TO Last Admin: 08/17/20 21:47 Dose: 4 mg Documented by: Metoclopramide HCl (Metoclopramide 5 Mg/Ml 2 Ml Vial) 10 mg IVP Q6HR PRN PRN Reason: Nausea and Vomiting Past medical history to include: Diverticulitis, hernia repair Social history: Lives with his . No history of smoking and alcohol. Employed Family history: Reviewed, noncontributory to presentation Physical examination: VITAL SIGNS: 98.4, 88, 16, 130/90, 94% on room air GENERAL: BMI 27.6, laying in bed, comfortable. EYES: Pupils equal. Conjunctiva normal. HEENT: External appearance of nose and ears normal, oral cavity grossly normal. NECK: JVD not raised; masses not palpable. HEART: First and second heart sounds are normal; no edema. LUNGS: Respiratory rate normal; clear to auscultation. ABDOMEN: Soft, right DEMI drain. Midline incision with a dressing, left ileostomy-with liquid stool, Tenderness. PSYCH: Alert and oriented x3; mood and affect normal. INVESTIGATIONS, reviewed in the clinical context: August 17: WBC 9.4 hemoglobin 14.5 August 16: WBC 10.9 hemoglobin 13.4 potassium 4.2 WBC 15.5 hemoglobin 15.1 platelets 259 potassium 4.3 creatinine 0.96 Coronavirus [PCR] not detected Assessment and plan: -Creation of a new diverging ileostomy. Prior colostomy removed Patient is getting IV fluids. Advance to full liquids -Leukocytosis, reactive -improving Follow clinically. No current evidence of infection -GERD on Prilosec Discussed with patient. Increase activity Thank you Dr. Craft
[2020-08-18] MEDS: HEPARIN SODIUM,PORCINE/PF 5,000 UNIT/0.5 ML SYRINGE SQ SCH ×2 (00:37→09:17)
[2020-08-18] MEDS: D5-0.45% NACL WITH KCL 20MEQ/L 1,000 ML IV SCH (00:37)
[2020-08-18] MEDS: KETOROLAC 15 MG/ML 1 ML VIAL IVP SCH ×3 (00:41→12:22)
[2020-08-18] MEDS: HYDROcodone/APAP 7.5-325MG 1 EACH TAB PO PRN ×2 (05:32→12:21)
[2020-08-18 07:14] VITALS: BP 124/75; PULSE 65; TEMP 97.8
[2020-08-18] MEDS: LACTATED RINGERS 1,000 ML IV SCH (08:44)
[2020-08-18] MEDS: LOPERAMIDE 2 MG CAP PO SCH ×2 (08:54→12:18)
[2020-08-18] MEDS: FAMOTIDINE 20 MG/2 ML VIAL IV SCH (08:55)
--- NOTE | 2020-08-18 13:04 | P.DS ---
<Patricia Milton - Last Filed: 08/18/20 13:01> Providers Expected date of discharge: 08/18/20 Hospital Course: Discharge diagnosis 1. Diverticulitis status post Colostomy reversal, mobilization splenic flexure, diverting loop ileostomy, partial omentectomy Hospital course This is a 54-year-old male with history of perforated diverticulitis status post Narvaez's procedure. Patient is status post colostomy reversal,mobilization splenic flexure, diverting loop ileostomy, partial omentectomy. Patient tolerated surgery well. He is tolerating diet. His pain is controlled. He is having stool through his ileostomy. And since adding the Imodium the stool is thicker. He is afebrile. He has been up and ambulating. Denies any difficulty urinating. Patient is stable for discharge home. Please refer to chart for any further details. Physician Vacuum Frame Operator note has been reviewed by physician. Signing provider agrees with the documented findings, assessment, and plan of care. Patient Condition at Discharge: Stable Plan - Discharge Summary Discharge Rx Participant: Yes New Discharge Prescriptions: New Loperamide [Imodium] 4 mg PO QID PRN #30 cap PRN Reason: Diarrhea HYDROcodone/APAP 7.5-325MG [Bigelow 7.5-325] 1 each PO Q6H PRN #18 tab PRN Reason: Pain Continue Vitamin B Complex 1 cap PO DAILY Aspirin EC [Ecotrin Low Dose] 81 mg PO DAILY Omeprazole 20 mg PO DAILY Glucos Sul 2Kcl/MSM/Chond/C/Mn [Glucosamine Chondroitin Cap] 1 cap PO DAILY Cholecalciferol [Vitamin D3 (25 Mcg = 1000 Iu)] 2,000 unit PO DAILY Flaxseed Oil 1,000 mg PO DAILY Garlic 1 each PO DAILY Discharge Medication List Aspirin EC [Ecotrin Low Dose] 81 mg PO DAILY 03/05/20 [History] Cholecalciferol [Vitamin D3 (25 Mcg = 1000 Iu)] 2,000 unit PO DAILY 03/05/20 [History] Glucos Sul 2Kcl/MSM/Chond/C/Mn [Glucosamine Chondroitin Cap] 1 cap PO DAILY 03/05/20 [History] Omeprazole 20 mg PO DAILY 03/05/20 [History] Vitamin B Complex 1 cap PO DAILY 03/05/20 [History] Flaxseed Oil 1,000 mg PO DAILY 08/07/20 [History] Garlic 1 each PO DAILY 08/07/20 [History] HYDROcodone/APAP 7.5-325MG [Bigelow 7.5-325] 1 each PO Q6H PRN #18 tab 08/18/20 [Rx] Loperamide [Imodium] 4 mg PO QID PRN #30 cap 08/18/20 [Rx] Patient Instructions/Handouts: Diverticulitis (GEN), Ileostomy Care (GEN) Activity/Diet/Wound Care/Special Instructions: Loop ileostomy care Recommendations for Home: Mr Lazcano will be sent home the following supplies for care of his loop ileostomy: Convatec moldable flanges moldable #[id number] (3) Convatec pouch with filter #[id number] (3) Convatec High output pouch #[id number] (2) This could be connected to a bedside drainage system for nighttime if desired, Ostomy powder (1) No sting prep pads (10) Mr Lazcano is to empty the pouch when it is half to 1/3 full Mr Lazcano is to change the entire pouching system every 3 - 5 days Additional ileostomy supplies will be sent to Mr Lazcano's home in 5 - 7 days after discharge from the hospital No driving while taking Bigelow No lifting over 10 pounds You may shower. No soaking or tub baths for 2 weeks Very light activity until you are reevaluated at your follow up appointment with your surgeon Diet Low fiber Discharge Disposition: HOME SELF-CARE <Reuben Montemayor - Last Filed: 08/18/20 13:26> Providers Date of admission: 08/14/20 08:14 Attending physician: Reuben Montemayor Consults: 08/14/20 14:58 Consult Physician Routine Consulting Provider: Dean Montilla Consult Reason/Comments: Medical management Do you want consulting provider notified?: Yes Primary care physician: Stated None - Discharge Diagnosis(es) (1) Sigmoid diverticulitis Current Visit: No Status: Acute Hospital Course: As above. Patient doing well today. May discharge. Remove drain. Follow-up in 1 week.
--- NOTE | 2020-08-18 23:15 | P.PN ---
Progress Note - Text Progress Note Date: 08/18/20 - Chief Complaint Abdominal surgery History of presenting complaint: This is a pleasant 54 year patient . In March 2020 patient was found over perforated sigmoid diverticular disease with ileus. Patient underwent sigmoid colectomy with end colostomy. By this Dr. Craft. had undergone colostomy reversal but due to the anatomy discovered while surgery patient had to have a new ileostomy created. Patient has a DEMI drain. Started on clear liquid diet. Today: Feeling better. Ileostomy bag working well. Pain better. Diet advanced per surgery. Review of systems: Was done for constitutional, cardiovascular, GI, pulmonary. r elevant finding as above Current medications reviewed in today's electronic records Past medical history to include: Diverticulitis, hernia repair Social history: Lives with his . No history of smoking and alcohol. Employed Family history: Reviewed, noncontributory to presentation Physical examination: VITAL SIGNS: 97.8, 65, 16, 1 24 x 75, 95% room air GENERAL: BMI 27.6, laying in bed, comfortable. EYES: Pupils equal. Conjunctiva normal. HEENT: External appearance of nose and ears normal, oral cavity grossly normal. NECK: JVD not raised; masses not palpable. HEART: First and second heart sounds are normal; no edema. LUNGS: Respiratory rate normal; clear to auscultation. ABDOMEN: Soft, right DEMI drain. Midline incision with a dressing, left ileostomy-with liquid stool, Tenderness. PSYCH: Alert and oriented x3; mood and affect normal. INVESTIGATIONS, reviewed in the clinical context: August 17: WBC 9.4 hemoglobin 14.5 August 16: WBC 10.9 hemoglobin 13.4 potassium 4.2 WBC 15.5 hemoglobin 15.1 platelets 259 potassium 4.3 creatinine 0.96 Coronavirus [PCR] not detected Assessment and plan: -Creation of a new diverging ileostomy. Prior colostomy removed Patient is getting IV fluids. Advance to full liquids -Leukocytosis, reactive -improving Follow clinically. No current evidence of infection -GERD on Prilosec Patient being discharged today. Questions answered. Follow-up with PCP. Thank you Dr. Craft
== END 2020-08-18 16:04 | disposition home or self-care (01) | DRG 330 ==
LOC: 2ORMAIN 08:14 → EDSTATUS 08:55 → 4SSUR 15:28
PROVIDERS: ADMIT Surgery; ATTEND Surgery
PROC: 0DBN0ZZ Excision of Sigmoid Colon, Open Approach (ICD-10-PCS; principal; 2020-08-14 10:05)
PROC: 0D1B0Z4 Bypass Ileum to Cutaneous, Open Approach (ICD-10-PCS; principal; 2020-08-14 10:05)
PROC: 0DBU0ZZ Excision of Omentum, Open Approach (ICD-10-PCS; principal; 2020-08-14 10:05)
DX: Z43.3 Encounter for attention to colostomy (principal); K57.20 Diverticulitis of large intestine with perforation and abscess without bleeding; Z20.822 Contact with and (suspected) exposure to COVID-19; K21.9 Gastro-esophageal reflux disease without esophagitis; Z79.82 Long term (current) use of aspirin; Z79.899 Other long term (current) drug therapy; Z87.19 Personal history of other diseases of the digestive system; Z87.39 Personal history of other diseases of the musculoskeletal system and connective tissue; Z87.891 Personal history of nicotine dependence; Z90.49 Acquired absence of other specified parts of digestive tract; Z98.890 Other specified postprocedural states; Z88.5 Allergy status to narcotic agent; Z83.2 Family history of diseases of the blood and blood-forming organs and certain disorders involving the immune mechanism
CPT/HCPCS: 80048; 85025; 86850; 86900; 86901; 87635; 88307

== ENCOUNTER 2020-09-29 09:29 | Day surgery (SDC) | payer BC ==
[2020-09-28 09:24] VITALS: BMI 27.1
[~2020-09-29 09:29] MED LIST changes: -ACETAMINOPHEN TAB 500 MG TAB PO PRN; -ALVIMOPAN 12 MG CAPSULE PO PRN; -HEPARIN SODIUM,PORCINE/PF 5,000 UNIT/0.5 ML SYRINGE SQ PRN; +LACTATED RINGERS 1,000 ML IV SCH; +LIDOCAINE 1% (10MG/ML) FOR IV START INTRADERMA PRN; -MIDAZOLAM 2 MG/2 ML VIAL IV PRN; -fentaNYL (PF) 50 MCG/ML 2 ML AMP IV PRN; -metroNIDAZOLE-NS PMX 500 MG in SALINE 1 100ML.BAG IVPB PRN
[2020-09-29 10:51] VITALS: RESP 20; TEMP 97.9
[2020-09-29] MEDS ORDERED: PROPOFOL 10 MG/ML 20 ML VIAL IV ONE (11:20)
--- NOTE | 2020-09-29 11:24 | P.GSHP ---
History of Present Illness H&P Date: 09/29/20 Chief Complaint: Diverticulitis Patient will known to our service. Patient underwent recent colostomy reversal. At the time of the surgery the patient had a small leak seen at the anastomotic site. A diverting loop ileostomy was made. Here today for evaluation of the anastomotic site via flexible sigmoidoscopy. Past Medical History Past Medical History: GERD/Reflux Additional Past Medical History / Comment(s): Diverticulitis with rupture 03/2020, ileostomy History of Any Multi-Drug Resistant Organisms: None Reported Past Surgical History: Bowel Resection, Hernia Repair, Orthopedic Surgery Additional Past Surgical History / Comment(s): bowel resection with colostomy 03/2020, bob carpal tunnel, 08/14/20-colostomy reversal with ileostomy Past Anesthesia/Blood Transfusion Reactions: No Reported Reaction Smoking Status: Current every day smoker - Past Family History Mother Family Medical History: Deep Vein Thrombosis (DVT) Medications and Allergies Home Medications Medication Instructions Recorded Confirmed Type Aspirin EC [Ecotrin Low Dose] 81 mg PO DAILY 03/05/20 09/28/20 History Cholecalciferol [Vitamin D3 (25 2,000 unit PO DAILY 03/05/20 09/28/20 History Mcg = 1000 Iu)] Glucos Sul 2Kcl/MSM/Chond/C/Mn 1 cap PO DAILY 03/05/20 09/28/20 History [Glucosamine Chondroitin Cap] Omeprazole 20 mg PO DAILY 03/05/20 09/28/20 History Vitamin B Complex 1 cap PO DAILY 03/05/20 09/28/20 History Flaxseed Oil 1,000 mg PO DAILY 08/07/20 09/28/20 History Garlic 1 each PO DAILY 08/07/20 09/28/20 History Allergies Allergy/AdvReac Type Severity Reaction Status Date / Time morphine Allergy Anaphylaxis Verified 09/28/20 09:15 Surgical - Exam Vital Signs Temp Pulse Resp BP Pulse Ox 97.9 F 63 20 109/73 97 09/29/20 10:25 09/29/20 10:25 09/29/20 10:25 09/29/20 10:09/29/20 10:25 Physical exam: General: Well-developed, well-nourished HEENT: Normocephalic, sclerae nonicteric Abdomen: Nontender, nondistended, left-sided ostomy Extremities: No edema Neuro: Alert and oriented Results - Labs 09/29/20 10:35 09/29/20 10:35 Abnormal Lab Results - Last 24 Hours (Table) 09/29/20 Range/Units 10:35 Chloride 108 H (98-107) mmol/L Diabetes panel 09/29/20 Range/Units 10:35 Sodium 138 (137-145) mmol/L Potassium 4.5 (3.5-5.1) mmol/L Chloride 108 H (98-107) mmol/L Carbon Dioxide 24 (22-30) mmol/L Pituitary panel 09/29/20 Range/Units 10:35 Sodium 138 (137-145) mmol/L Potassium 4.5 (3.5-5.1) mmol/L Chloride 108 H (98-107) mmol/L Carbon Dioxide 24 (22-30) mmol/L Adrenal panel 09/29/20 Range/Units 10:35 Sodium 138 (137-145) mmol/L Potassium 4.5 (3.5-5.1) mmol/L Chloride 108 H (98-107) mmol/L Carbon Dioxide 24 (22-30) mmol/L Assessment and Plan (1) Diverticulitis Narrative/Plan: Will proceed with flexible sigmoidoscopy at this time. Current Visit: No Status: Acute Code(s): K57.92 - DVTRCLI OF INTEST, PART UNSP, W/O PERF OR ABSCESS W/O BLEED SNOMED Code(s): 356077262
--- NOTE | 2020-09-29 12:03 | P.PCN ---
Date of Procedure: 09/29/20 Procedure(s) Performed: PREOPERATIVE DIAGNOSIS: Diverticulitis, evaluate anastomosis POSTOPERATIVE DIAGNOSIS: Anastomotic stricture PROCEDURE: Flexible sigmoidoscopy with balloon dilation ANESTHESIA: MAC SURGEON: Reuben Montemayor M.D. SPECIMENS: None ENDOSCOPIC PROCEDURE: The patient was placed on the endoscopy table in the left decubitus position. The Olympus flexible sigmoidoscope with a diameter of 13.3 mm is advanced into the rectum and passed to the anastomotic site. The patient had evidence of a stricture. The 8-10 mm balloon was inserted and dilated sequentially from 8-10 mm. The 10-12 mm balloon was then utilized. I could not advance the balloon through the anastomosis because of slight tortuosity there and instead used a pediatric gastroscope. This had a 9 mm diameter. We were able to easily pass through the anastomosis. The 10-12 mm balloon was sequentially dilated. Following at the 12 the 15 mm balloon was utilized in a similar fashion. Minimal bleeding was seen during the dilations. There was no evidence of gross perforation or mucosal tearing. We were able to advance the 15 mm balloon fairly easily through the anastomosis by the time we finished. No neoplastic or polypoid lesions were seen. Digital rectal examination was normal. The patient was taken to the recovery room in stable condition per anesthesia guidelines. RECOMMENDATIONS: Will send for rectal contrast CAT scan of the pelvis. Tentatively plan to proceed with ostomy reversal on Monday.
[2020-09-29 12:31] VITALS: BP 115/73; PULSE 55
--- NOTE | 2020-09-29 13:29 | CT ---
EXAMINATION TYPE: CT pelvis wo con DATE OF EXAM: 09/29/2020 COMPARISON: 03/09/2020 HISTORY: h/o DIVERTICULITIS CT DLP: 423.[address] of the pelvis was performed from the wall of the kidneys through the pelvis. Rectal con trast was administered. FINDINGS: KIDNEYS: Visualized portions of the kidneys are unremarkable. BOWEL: There is been left-sided ostomy. Anastomosis is noted at the level of the rectosigmoid region with luminal narrowing identified estimated at 50%. Contrast is noted beyond the area of luminal narr owing with the contrast within the right hemicolon. No evidence for leak. No visible abscess. No free air. Lymph nodes: No evidence for adenopathy greater than 1 cm. Abdominal aorta: Atheromatous changes seen. No evidence for aneurysm. Genital organs: No significant abnormality. Other: No significant abnormality. IMPRESSION: 1. Anastomotic narrowing at the rectosigmoid anastomosis estimated at approximately 50%. As noted con trast is identified within the right hemicolon.
== END 2020-09-29 14:27 | disposition home or self-care (01) ==
LOC: ORWHC2ENDO 09:29
PROVIDERS: ATTEND Surgery
DX: T85.858A Stenosis due to other internal prosthetic devices, implants and grafts, initial encounter (principal); K57.90 Diverticulosis of intestine, part unspecified, without perforation or abscess without bleeding; Y83.2 Surgical operation with anastomosis, bypass or graft as the cause of abnormal reaction of the patient, or of later complication, without mention of misadventure at the time of the procedure; Y73.1 Therapeutic (nonsurgical) and rehabilitative gastroenterology and urology devices associated with adverse incidents; K21.9 Gastro-esophageal reflux disease without esophagitis; F17.210 Nicotine dependence, cigarettes, uncomplicated; Z79.82 Long term (current) use of aspirin; Z79.899 Other long term (current) drug therapy; Z88.5 Allergy status to narcotic agent
CPT/HCPCS: 72192; 45340; J2704; C1726 ×3; 80051; 85025; 86850; 86900; 86901

== ENCOUNTER 2020-10-02 07:30 | Inpatient (IN) | payer BC ==
[2020-09-29 10:57] LABS: Basophils # (A) 0.1 k/uL (0-0.2); Basophils % (A) 1 %; Eosinophils # (A) 0.3 k/uL (0-0.7); Eosinophils % (A) 3 %; HCT 44.9 % (39.0-53.0); HGB 15.5 gm/dL (13.0-17.5); Lymphocytes # (A) 2.4 k/uL (1.0-4.8); Lymphocytes % (A) 28 %; MCH 29.7 pg (25.0-35.0); MCHC 34.4 g/dL (31.0-37.0); MCV 86.3 fL (80.0-100.0); Mean Platelet Volume 6.6; Monocytes # (A) 0.4 k/uL (0-1.0); Monocytes % (A) 5 %; Neutrophils # (A) 5.4 k/uL (1.3-7.7); Neutrophils % (A) 62 %; Platelet Count 312 k/uL (150-450); RBC 5.21 m/uL (4.30-5.90); RDW 13.3 % (11.5-15.5); WBC 8.7 k/uL (3.8-10.6)
[2020-09-29 11:12] LABS: Potassium 4.5 mmol/L (3.5-5.1)
[2020-09-30 09:49] VITALS: BMI 27.3
--- NOTE | 2020-10-01 17:27 | P.GSHP ---
History of Present Illness H&P Date: 10/01/20 Chief Complaint: Diverticulitis, anastomotic stricture 54-year-old male presents for reversal diverting loop ileostomy. Patient underwent Narvaez's procedure for perforated diverticulitis. In August the patient underwent reversal of his colostomy and was found to have a small leak at his anastomosis. 2 days ago patient underwent flexible sigmoidoscopy and was found to have a anastomotic stricture that dilated nicely out to [address] pelvis was then performed that showed no evidence of leak. Doing well with his ileostomy since it was placed. Past Medical History Additional Past Medical History / Comment(s): Diverticulitis with rupture 03/2020 History of Any Multi-Drug Resistant Organisms: None Reported Past Surgical History: Hernia Repair Additional Past Surgical History / Comment(s): bowel resection with colostomy 03/2020, bob carpal tunnel, sigmoidoscopy, 08/14/20 colonsocopy reversal with ileostomy Past Anesthesia/Blood Transfusion Reactions: No Reported Reaction Smoking Status: Current every day smoker - Past Family History Mother Family Medical History: Deep Vein Thrombosis (DVT) Medications and Allergies Home Medications Medication Instructions Recorded Confirmed Type Aspirin EC [Ecotrin Low Dose] 81 mg PO DAILY 03/05/20 09/30/20 History Cholecalciferol [Vitamin D3 (25 2,000 unit PO DAILY 03/05/20 09/30/20 History Mcg = 1000 Iu)] Glucos Sul 2Kcl/MSM/Chond/C/Mn 1 cap PO DAILY 03/05/20 09/30/20 History [Glucosamine Chondroitin Cap] Omeprazole 20 mg PO DAILY 03/05/20 09/30/20 History Vitamin B Complex 1 cap PO DAILY 03/05/20 09/30/20 History Flaxseed Oil 1,000 mg PO DAILY 08/07/20 09/30/20 History Garlic 1 each PO DAILY 08/07/20 09/30/20 History Allergies Allergy/AdvReac Type Severity Reaction Status Date / Time morphine Allergy Anaphylaxis Verified 09/28/20 09:15 Surgical - Exam Physical exam: General: Well-developed, well-nourished HEENT: Normocephalic, sclerae nonicteric Abdomen: Nontender, nondistended, left-sided ostomy noted Extremities: No edema Neuro: Alert and oriented Results - Labs 09/29/20 10:35 09/29/20 10:35 Assessment and Plan (1) Acute diverticulitis Narrative/Plan: Will proceed with ileostomy reversal at this time. Risks of bleeding, infection, leak, abscess, hernia, recurrent stricture at anastomosis reviewed. Patient understands and wishes to proceed. Status: Acute Code(s): K57.92 - DVTRCLI OF INTEST, PART UNSP, W/O PERF OR ABSCESS W/O BLEED SNOMED Code(s): 178811427
[~2020-10-02 07:30] MED LIST changes: +ALVIMOPAN 12 MG CAPSULE PO PRN; +DEXAMETHASONE SOD PHOSPHATE 4 MG/ML 1 ML VIAL IV ONE; +HEPARIN SODIUM,PORCINE/PF 5,000 UNIT/0.5 ML SYRINGE SQ PRN; -LACTATED RINGERS 1,000 ML IV SCH; +MIDAZOLAM 2 MG/2 ML VIAL IV PRN; +ONDANSETRON 4 MG/2 ML VIAL IVP ONE; +metroNIDAZOLE-NS PMX 500 MG in SALINE 1 100ML.BAG IVPB PRN
[2020-10-02] MEDS: LACTATED RINGERS 1,000 ML IV SCH (08:30)
[2020-10-02] MEDS ORDERED: MIDAZOLAM 2 MG/2 ML VIAL IVP ONE (08:54)
[2020-10-02] MEDS ORDERED: PROPOFOL 10 MG/ML 20 ML VIAL IV ONE (09:17)
[2020-10-02] MEDS ORDERED: LIDOCAINE 1% INJ 10MG/ML (20 ML MDV) ONE (09:17)
[2020-10-02] MEDS ORDERED: fentaNYL (PF) 50 MCG/ML 2 ML AMP ONE (09:17)
[2020-10-02] MEDS ORDERED: ePHEDrine SULFATE/0.9% NACL/PF 50 MG/5 ML SYRINGE IV ONE (09:17)
[2020-10-02] MEDS ORDERED: SUCCINYLCHOLINE CHLORIDE 100 MG/5 ML SYR IV ONE (09:17)
[2020-10-02] MEDS ORDERED: ROPIVACAINE 5 MG/ML 30 ML VIAL ONE (09:17)
[2020-10-02] MEDS ORDERED: MIDAZOLAM 2 MG/2 ML VIAL ONE (09:17)
[2020-10-02] MEDS ORDERED: ROCURONIUM 10 MG/ML (5 ML VIAL) IV ONE (09:17)
[2020-10-02] MEDS ORDERED: GLYCOPYRROLATE 0.2 MG/ML 2 ML VIAL ONE (09:17)
[2020-10-02] MEDS ORDERED: NEOSTIGMINE 1 MG/ML 10 ML VIAL ONE (09:17)
[2020-10-02] MEDS ORDERED: LACTATED RINGERS 1,000 ML IV ONE (10:15)
--- NOTE | 2020-10-02 10:50 | P.OP ---
Date of Procedure: 10/02/20 Procedure(s) Performed: PREOPERATIVE DIAGNOSIS: Diverticulitis POSTOPERATIVE DIAGNOSIS: Same PROCEDURE: Ileostomy reversal SURGEON: Sim EBL: 25 mL ANESTHESIA: General anesthesia COMPLICATIONS: None OPERATIVE PROCEDURE: Patient brought in place never table in the supine position. The patient was placed under general anesthesia. The patient's loop ileostomy was closed using 0 Vicryl pursestring sutures at both lumen. The abdomen was then prepped and draped sterilely. An elliptical incision was made around the loop ileostomy. Dissection through the subcutaneous tissues and the peritoneal cavity took place using both blunt dissection, sharp dissection, and electrocautery. Once we had adequate length of the loops of small bowel the bowel was divided using a laparoscopic 60 load blue stapler. The mesentery was divided using a LigaSure device. The antimesenteric portion of the staple line was excised sharply. The laparoscopic 60 blue load stapler was fired along the antimesenteric border. The remaining defect was closed transversely using a TX 60 device. A 3-0 GI silk crotch stitch was also placed. No bleeding was seen. The bowel was reduced back into the peritoneal cavity. The fascia was then freed and closed using interrupted #1 Vicryl sutures and an interrupted [id number] fashion horizontally. The area was irrigated with saline. No bleeding was seen. The saphenous tissues were closed using 20 and 3-0 Vicryl sutures. The skin was closed using sudarshan. DISPOSITION: Stable to recovery room
[2020-10-02] MEDS: HYDROmorphone 0.5 MG/0.5 ML SYRINGE IVP PRN ×4 (11:03→11:26)
[2020-10-02] MEDS ORDERED: ONDANSETRON 4 MG/2 ML VIAL IVP PRN (12:21)
[2020-10-02] MEDS ORDERED: HYDROmorphone 1 MG/ML 1 ML SYRINGE IVP PRN (12:21)
[2020-10-02] MEDS ORDERED: HYDROcodone/APAP 5-325MG 1 EACH TAB PO PRN (12:24)
[2020-10-02] MEDS: D5-0.45% NACL WITH KCL 20MEQ/L 1,000 ML IV SCH ×2 (14:13→23:14)
[2020-10-02] MEDS: ALVIMOPAN 12 MG CAPSULE PO SCH ×2 (14:13→21:40)
[2020-10-02] MEDS: KETOROLAC 15 MG/ML 1 ML VIAL IVP PRN (14:15)
--- NOTE | 2020-10-02 14:24 | P.ANPRN ---
Procedure Note - Anesthesia - Nerve Block Performed Left Erector Spinae Single Time Out Performed: Yes Date of Procedure: 10/02/20 Procedure Start Time: 08:52 Procedure Stop Time: 08:58 Location of Patient: PreOp Indication: Acute Post-Operative Pain, Analgesia, Dx/Pain Location, Requested by Surgeon Sedation Type: Sedate with meaningful contact maintained Preparation: Sterile Prep Position: Prone Catheter: None Needle Types: Pajunk Needle Gauge: 21 Ultrasound used to visualize needle placement: Yes Ultrasound used to observe medication spread: Yes Injectate: 0.5% Ropivacaine (see comment for volume) (20cc) Blood Aspirated: No Pain Paresthesia on Injection Noted: No Resistance on Injection: Normal Image Stored and Saved: Yes Events: Uneventful and Well Tolerated
[2020-10-02] MEDS: HEPARIN SODIUM,PORCINE/PF 5,000 UNIT/0.5 ML SYRINGE SQ SCH ×2 (17:01→23:14)
[2020-10-02] MEDS: FAMOTIDINE 20 MG/2 ML VIAL IV SCH (21:40)
[2020-10-03 07:53] VITALS: BP 138/79; PULSE 55; RESP 17; TEMP 97.4
[2020-10-03] MEDS: LACTATED RINGERS 1,000 ML IV SCH (08:11)
[2020-10-03] MEDS: D5-0.45% NACL WITH KCL 20MEQ/L 1,000 ML IV SCH (08:11)
[2020-10-03] MEDS: HEPARIN SODIUM,PORCINE/PF 5,000 UNIT/0.5 ML SYRINGE SQ SCH (08:12)
[2020-10-03] MEDS: ALVIMOPAN 12 MG CAPSULE PO SCH (08:13)
[2020-10-03] MEDS: FAMOTIDINE 20 MG/2 ML VIAL IV SCH (08:13)
[2020-10-03] MEDS: KETOROLAC 15 MG/ML 1 ML VIAL IVP PRN (08:27)
--- NOTE | 2020-10-03 10:13 | P.DS ---
Providers Date of admission: 10/02/20 07:30 Expected date of discharge: 10/03/20 Attending physician: Reuben Montemayor Consults: 10/02/20 12:24 Consult Physician Routine Consulting Provider: Dean Montilla Consult Reason/Comments: Medical management Do you want consulting provider notified?: Yes Primary care physician: Ross Lou - Discharge Diagnosis(es) (1) Acute diverticulitis Patient was admitted yesterday after ileostomy reversal. Doing well today. No nausea. Tolerating diet. He has had flatus. He would like to go home today. Dressing is clean and dry. We'll discharge. Follow-up one week. Current Visit: No Status: Acute Plan - Discharge Summary Discharge Rx Participant: Yes New Discharge Prescriptions: New oxyCODONE HCL [OxyIR] 5 mg PO Q6H PRN 3 Days #6 tab PRN Reason: Breakthrough Pain No Action Vitamin B Complex 1 cap PO DAILY Aspirin EC [Ecotrin Low Dose] 81 mg PO DAILY Omeprazole 20 mg PO DAILY Glucos Sul 2Kcl/MSM/Chond/C/Mn [Glucosamine Chondroitin Cap] 1 cap PO DAILY Cholecalciferol [Vitamin D3 (25 Mcg = 1000 Iu)] 2,000 unit PO DAILY Flaxseed Oil 1,000 mg PO DAILY Garlic 1 each PO DAILY Discharge Medication List Aspirin EC [Ecotrin Low Dose] 81 mg PO DAILY 03/05/20 [History] Cholecalciferol [Vitamin D3 (25 Mcg = 1000 Iu)] 2,000 unit PO DAILY 03/05/20 [History] Glucos Sul 2Kcl/MSM/Chond/C/Mn [Glucosamine Chondroitin Cap] 1 cap PO DAILY 03/05/20 [History] Omeprazole 20 mg PO DAILY 03/05/20 [History] Vitamin B Complex 1 cap PO DAILY 03/05/20 [History] Flaxseed Oil 1,000 mg PO DAILY 08/07/20 [History] Garlic 1 each PO DAILY 08/07/20 [History] oxyCODONE HCL [OxyIR] 5 mg PO Q6H PRN 3 Days #6 tab 10/03/20 [Rx]
== END 2020-10-03 12:39 | disposition home or self-care (01) | DRG 330 ==
LOC: 2ORMAIN 07:30 → EDSTATUS 07:45 → 4SSUR 11:02
PROVIDERS: ADMIT Surgery; ATTEND Surgery
PROC: 0DBB0ZZ Excision of Ileum, Open Approach (ICD-10-PCS; principal; 2020-10-02 09:10)
DX: Z43.2 Encounter for attention to ileostomy (principal); K57.80 Diverticulitis of intestine, part unspecified, with perforation and abscess without bleeding; Z79.82 Long term (current) use of aspirin; F17.200 Nicotine dependence, unspecified, uncomplicated; Z20.822 Contact with and (suspected) exposure to COVID-19
CPT/HCPCS: 64461; 76942; 80051; 85025; 86850; 86900; 86901; 87635; 88304

== ENCOUNTER 2021-04-20 08:24 | Inpatient (IN) | payer BC ==
[2021-04-20] MEDS ORDERED: ONDANSETRON 4 MG/2 ML VIAL IVP STA (08:53)
[2021-04-20] MEDS ORDERED: SODIUM CHLORIDE 0.9% 1,000 ML IV STA (08:53)
[2021-04-20] MEDS ORDERED: HYDROmorphone 0.5 MG/0.5 ML SYRINGE IVP STA (08:53)
--- NOTE | 2021-04-20 09:02 | ED ---
General Adult HPI - General Chief complaint: Abdominal Pain Stated complaint: abd pain Time Seen by Provider: 04/20/21 08:39 Source: patient, RN notes reviewed Mode of arrival: wheelchair Limitations: no limitations - History of Present Illness Initial comments: Patient's a 55-year-old male presented to the emergency room today with a chief complaint of increased abdominal pain that started around 2 AM. Patient does admit to history of a ostomy in the past that was reversed this past September. Patient does admit to increased nausea. Patient denies any other complaints or symptoms. Patient denies any recent fever, chills, shortness of breath, chest p ain, back pain, nausea or vomiting, constipation or diarrhea, headaches or visual changes, or any other complaints. - Related Data Home Medications Medication Instructions Recorded Confirmed Aspirin EC [Ecotrin Low Dose] 81 mg PO HS 03/05/20 04/20/21 Cholecalciferol [Vitamin D3 (25 50 mcg PO HS 03/05/20 04/20/21 Mcg = 1000 Iu)] Glucos Sul 2Kcl/MSM/Chond/C/Mn 1 cap PO HS 03/05/20 04/20/21 [Glucosamine Chondroitin Cap] Omeprazole 20 mg PO DAILY 03/05/20 04/20/21 Vitamin B Complex 1 cap PO DAILY 03/05/20 04/20/21 Flaxseed Oil 1,000 mg PO HS 08/07/20 04/20/21 Allergies Allergy/AdvReac Type Severity Reaction Status Date / Time morphine Allergy Anaphylaxis Verified 04/20/21 10:01 Review of Systems ROS Statement: Those systems with pertinent positive or pertinent negative responses have been documented in the HPI. ROS Other: All systems not noted in ROS Statement are negative. Past Medical History Additional Past Medical History / Comment(s): Diverticulitis with rupture 03/2020 History of Any Multi-Drug Resistant Organisms: None Reported Past Surgical History: Hernia Repair Additional Past Surgical History / Comment(s): bowel resection with colostomy 03/2020, bob carpal tunnel, sigmoidoscopy, 08/14/20 colonsocopy reversal with ileostomy Past Anesthesia/Blood Transfusion Reactions: No Reported Reaction Past Psychological History: No Psychological Hx Reported Smoking Status: Current every day smoker Past Alcohol Use History: Occasional Past Drug Use History: None Reported - Past Family History Mother Family Medical History: Deep Vein Thrombosis (DVT) General Exam - General Exam Comments Initial Comments: General: The patient is awake and alert, in no distress, and does not appear acutely ill. Eye: There is normal conjunctiva bilaterally. No signs of icterus. Ears, nose, mouth and throat: There are moist mucous membranes and no oral lesions. Neck: The neck is supple, there is no tenderness or JVD. Cardiovascular: There is a regular rate and rhythm. No murmur, rub or gallop is appreciated. Respiratory: Lungs are clear to auscultation, respirations are non-labored, breath sounds are equal. No wheezes, stridor, rales, or rhonchi. Gastrointestinal: Patient does have tenderness to the left lower quadrant. No guarding or CVA tenderness. Musculoskeletal: Normal ROM, no tenderness. Strength 5/5. Sensation intact. Neurological: A&O x 3. CN II-XII intact, There are no obvious motor or sensory deficits. Coordination appears grossly intact. Speech is normal. Skin: Skin is warm and dry and no rashes or lesions are noted. Psychiatric: Cooperative, appropriate mood & affect, normal judgment. Limitations: no limitations Course Vital Signs 04/20/21 04/20/21 08:33 10:35 Temperature 98.3 F Pulse Rate 64 64 Respiratory 18 18 Rate Blood Pressure 119/78 124/88 O2 Sat by Pulse 100 96 Oximetry EKG Findings - EKG Comments: EKG Findings:: EKG performed: 904. Normal sinus rhythm at 68 bpm. NJ interval 146. QRS 90. QT/QTc 420/446. No acute ST changes. Medical Decision Making - Medical Decision Making Patient labs have been reviewed. His blood pressures stayed stable here in emergency room. Did have 14,000 white count. Lactate was 2.2. Patient's CT of the abdomen pelvis does show evidence for SBO. Case was discussed with his general surgeon Dr. Montemayor who recommends NG tube admitting patient. Family have been updated are aware of the plan states understanding and are in agreement. - Lab Data Result diagrams: 04/20/21 09:12 04/20/21 09:12 Lab Results 04/20/21 04/20/21 04/20/21 Range/Units 09:12 09:12 09:12 WBC 14.9 H (3.8-10.6) k/uL RBC 5.15 (4.30-5.90) m/uL Hgb 15.2 (13.0-17.5) gm/dL Hct 46.2 (39.0-53.0) % MCV 89.8 (80.0-100.0) fL MCH 29.6 (25.0-35.0) pg MCHC 32.9 (31.0-37.0) g/dL RDW 13.1 (11.5-15.5) % Plt Count 307 (150-450) k/uL MPV 7.1 Neutrophils % 83 % Lymphocytes % 11 % Monocytes % 4 % Eosinophils % 1 % Basophils % 0 % Neutrophils # 12.4 H (1.3-7.7) k/uL Lymphocytes # 1.6 (1.0-4.8) k/uL Monocytes # 0.5 (0-1.0) k/uL Eosinophils # 0.2 (0-0.7) k/uL Basophils # 0.1 (0-0.2) k/uL Sodium 140 (137-145) mmol/L Potassium 4.5 (3.5-5.1) mmol/L Chloride 104 (98-107) mmol/L Carbon Dioxide 25 (22-30) mmol/L Anion Gap 11 mmol/L BUN 19 (9-20) mg/dL Creatinine 0.93 (0.66-1.25) mg/dL Est GFR (CKD-EPI)AfAm >90 (>60 ml/min/1.73 sqM) Est GFR (CKD-EPI)NonAf >90 (>60 ml/min/1.73 sqM) Glucose 133 H (74-99) mg/dL Plasma Lactic Acid [place] (0.7-2.0) mmol/L Calcium 9.6 (8.4-10.2) mg/dL Total Bilirubin 0.5 (0.2-1.3) mg/dL AST 37 (17-59) U/L ALT 22 (4-49) U/L Alkaline Phosphatase 54 (38-126) U/L Troponin I <0.012 (0.000-0.034) ng/mL Total Protein 7.6 (6.3-8.2) g/dL Albumin 4.5 (3.5-5.0) g/dL Lipase 64 (23-300) U/L Urine Color Urine Appearance (Clear) Urine pH (5.0-8.0) Ur Specific [place] (1.001-1.035) Urine Protein (Negative) Urine Glucose (UA) (Negative) Urine Ketones (Negative) Urine Blood (Negative) Urine Nitrite (Negative) Urine Bilirubin (Negative) Urine Urobilinogen (<2.0) mg/dL Ur Leukocyte Esterase (Negative) 04/20/21 04/20/21 Range/Units 09:12 10:15 WBC (3.8-10.6) k/uL RBC (4.30-5.90) m/uL Hgb (13.0-17.5) gm/dL Hct (39.0-53.0) % MCV (80.0-100.0) fL MCH (25.0-35.0) pg MCHC (31.0-37.0) g/dL RDW (11.5-15.5) % Plt Count (150-450) k/uL MPV Neutrophils % % Lymphocytes % % Monocytes % % Eosinophils % % Basophils % % Neutrophils # (1.3-7.7) k/uL Lymphocytes # (1.0-4.8) k/uL Monocytes # (0-1.0) k/uL Eosinophils # (0-0.7) k/uL Basophils # (0-0.2) k/uL Sodium (137-145) mmol/L Potassium (3.5-5.1) mmol/L Chloride (98-107) mmol/L Carbon Dioxide (22-30) mmol/L Anion Gap mmol/L BUN (9-20) mg/dL Creatinine (0.66-1.25) mg/dL Est GFR (CKD-EPI)AfAm (>60 ml/min/1.73 sqM) Est GFR (CKD-EPI)NonAf (>60 ml/min/1.73 sqM) Glucose (74-99) mg/dL Plasma Lactic Acid [place] 2.2 H* (0.7-2.0) mmol/L Calcium (8.4-10.2) mg/dL Total Bilirubin (0.2-1.3) mg/dL AST (17-59) U/L ALT (4-49) U/L Alkaline Phosphatase (38-126) U/L Troponin I (0.000-0.034) ng/mL Total Protein (6.3-8.2) g/dL Albumin (3.5-5.0) g/dL Lipase (23-300) U/L Urine Color Light Yellow Urine Appearance Clear (Clear) Urine pH 7.0 (5.0-8.0) Ur Specific [place] 1.019 (1.001-1.035) Urine Protein Negative (Negative) Urine Glucose (UA) Negative (Negative) Urine Ketones Negative (Negative) Urine Blood Negative (Negative) Urine Nitrite Negative (Negative) Urine Bilirubin Negative (Negative) Urine Urobilinogen <2.0 (<2.0) mg/dL Ur Leukocyte Esterase Negative (Negative) Disposition Clinical Impression: SBO (small bowel obstruction) Disposition: ADMITTED IP TO THIS [facility] Condition: Stable Is patient prescribed a controlled substance at d/c from ED?: No Referrals: Ross Lou MD [Primary Care Provider] - 1-2 days Time of Disposition: 10:48
[2021-04-20 09:26] LABS: Basophils # (A) 0.1 k/uL (0-0.2); Basophils % (A) 0 %; Eosinophils # (A) 0.2 k/uL (0-0.7); Eosinophils % (A) 1 %; HCT 46.2 % (39.0-53.0); HGB 15.2 gm/dL (13.0-17.5); Lymphocytes # (A) 1.6 k/uL (1.0-4.8); Lymphocytes % (A) 11 %; MCH 29.6 pg (25.0-35.0); MCHC 32.9 g/dL (31.0-37.0); MCV 89.8 fL (80.0-100.0); Mean Platelet Volume 7.1; Monocytes # (A) 0.5 k/uL (0-1.0); Monocytes % (A) 4 %; Neutrophils # (A) 12.4 k/uL (1.3-7.7); Neutrophils % (A) 83 %; Platelet Count 307 k/uL (150-450); RBC 5.15 m/uL (4.30-5.90); RDW 13.1 % (11.5-15.5); WBC 14.9 k/uL (3.8-10.6)
[2021-04-20 09:46] LABS: ALT 22 U/L (4-49); AST 37 U/L (17-59); African American GFR (CKD) >90 (>60 ml/min/1.73 sqM); Albumin 4.5 g/dL (3.5-5.0); Alkaline Phosphatase 54 U/L (38-126); Anion Gap 11 mmol/L; Blood Urea Nitrogen 19 mg/dL (9-20); Calcium 9.6 mg/dL (8.4-10.2); Carbon Dioxide 25 mmol/L (22-30); Chloride 104 mmol/L (98-107); Glucose 133 mg/dL (74-99); Lipase 64 U/L (23-300); Non-African American GFR(CKD) >90 (>60 ml/min/1.73 sqM); Sodium 140 mmol/L (137-145); Total Bilirubin 0.5 mg/dL (0.2-1.3); Total Protein 7.6 g/dL (6.3-8.2)
[2021-04-20 10:20] LABS: Potassium 4.5 mmol/L (3.5-5.1)
--- NOTE | 2021-04-20 10:34 | CT ---
EXAMINATION TYPE: CT abdomen pelvis w con DATE OF EXAM: 04/20/2021 COMPARISON: CT pelvis 09/29/2020, CT abdomen pelvis 03/09/2020 HISTORY: Abdominal pain CT DLP: 994.6 mGycm Automated exposure control for dose reduction was used. TECHNIQUE: Helical acquisition of images from the lung bases through the pelvis have been completed. CONTRAST: Performed without Oral Contrast and with IV Contrast, patient injected with 100 ml mL of Isovue 300. FINDINGS: LUNG BASES: Minimal patchy basilar atelectatic changes are noted. AORTA: No significant abnormality is appreciated. LIVER/GB: No significant abnormality is appreciated. PANCREAS: No significant abnormality is seen. SPLEEN: No significant abnormality is seen. ADRENALS: No significant abnormality is seen. KIDNEYS: No significant interval change is seen, punctate nonobstructive calcification present in lef t kidney, there is worsening kidney present. REPRODUCTIVE ORGANS: There are calcifications associated with the prostate, size of the gland is stab le, large BOWEL: Ileostomy has been reversed in the interval. There are dilated loops of small bowel present a nd there is a fluid-filled stomach present. Postop changes are noted, there are metallic sutures note d in the subcutaneous umbilical level, there is a bowel caliber change suspected at this level. Surgi kendra clips are also present in the rectosigmoid region. The appendix is normal FREE AIR: No Free Air visible. ASCITES: None visible. PELVIC ADENOPATHY: None visualized. RETROPERITONEAL ADENOPATHY: No Retroperitoneal Adenopathy visible. URINARY BLADDER: No significant abnormality is seen. OSSEOUS STRUCTURES: No significant abnormality is seen. IMPRESSION: FINDINGS SUGGEST SMALL BOWEL OBSTRUCTION
[2021-04-20 10:46] LABS: Appearance,Urine Clear (Clear); Bilirubin,Urine Negative (Negative); Blood,Urine Negative (Negative); Color,Urine Light Yellow; Glucose,Urine (UA) Negative (Negative); Ketones,Urine Negative (Negative); Leukocyte Esterase,Urine Negative (Negative); Nitrite,Urine Negative (Negative); Protein,Urine Negative (Negative); Specific Gravity,Urine 1.019 (1.001-1.035); Urobilinogen,Urine <2.0 mg/dL (<2.0)
[2021-04-20] MEDS ORDERED: SODIUM CHLORIDE 0.9% 1,000 ML IV ONE (10:46)
[2021-04-20] MEDS ORDERED: HYDROmorphone 0.5 MG/0.5 ML SYRINGE IVP PRN (11:29)
--- NOTE | 2021-04-20 13:02 | XR ---
EXAMINATION TYPE: XR chest 1V portable DATE OF EXAM: 04/20/2021 Comparison: 03/14/2020 Clinical History: 55-year-old male NG placement . Findings: NG tube courses below the diaphragm. Distal aspect is not well seen due to the degree of penetration. Mild interstitial prominence as a chronic appearance. Some strandy atelectasis at the left base. Hea rt normal size. Impression: NG tube courses below the diaphragm. The distal aspect, however, is not well seen due to underpenetra tion. Attention on follow-up.
--- NOTE | 2021-04-20 15:17 | P.GSHP ---
<Patricia Milton - Last Filed: 04/20/21 15:05> History of Present Illness H&P Date: 04/20/21 CHIEF COMPLAINT: Abdominal pain HISTORY OF PRESENT ILLNESS: This is a 55-year-old male with a known history of perforated sigmoid diverticulitis status post sigmoid colectomy with end colostomy in March 2020. In August 2020 patient underwent reversal of his colostomy and was found to have a small leak at the anastomosis and required a diverting loop ileostomy. Ileostomy was reversed in September 2020. Patient had been in good health and well. I patient reports that he had some noted onset of lower mid and left sided abdominal pain around 4 AM this morning. He complains that it was a severe antonio type of pain and rates it about a 10 out of 10. He had nausea no episodes of vomiting. His last bowel movement was yesterday. And since then he has had no further bowel movements or flatus. He did have cold sweats with the severe pain. Patient had computed tomography scan abdomen and pelvis and findings suggest small bowel obstruction. Patient had NG tube placed in the ER. Patient reports that his abdomen is softer since the placement of the NG tube. His pain is controlled with the pain medication. PAST MEDICAL HISTORY: See list. PAST SURGICAL HISTORY: See list. MEDICATIONS: See list. ALLERGIES: See list. SOCIAL HISTORY: No illicit drug use. REVIEW OF SYSTEMS: CONSTITUTIONAL: Denies fever or chills. HEENT: Denies blurred vision, vision changes, or eye pain. Denies hemoptysis CARDIOVASCULAR: Denies chest pain or pressure. RESPIRATORY: No shortness of breath. GASTROINTESTINAL: See HPI for pertinent findings HEMATOLOGIC: Denies bleeding disorders. GENITOURINARY: Denies any blood in urine or increased urinary frequency. SKIN: Denies pruitis. Denies rash. PHYSICAL EXAM: VITAL SIGNS: Reviewed GENERAL: Well-developed in no acute distress. HEENT: No sclera icterus. Extraocular movements grossly intact. Moist buccal mucosa. Head is atraumatic, normocephalic. No nasal drainage. ABDOMEN: Soft. Nondistended. Mild tenderness patient of the lower abdomen. Patient has healed midline scar and scar at old ileostomy site on the left. Small reducible hernia noted at ileostomy site. NEUROLOGIC: Alert and oriented. Cranial nerves II through XII grossly intact. LABORATORY DATA: WBC is 14.9 Hgb 15.2 platelets 307 Sodium 140 potassium 4.5 creatinine 0.93 lactic acid Elevated at 2.2 down to 1.5 LFTs within normal range Troponin less than 0.012 Lipase 64 Urinalysis negative COVID-19 not detected IMAGING: Computed tomography scan abdomen and pelvis without contrast findings suggest small bowel obstruction ASSESSMENT: 1. Small bowel obstruction PLAN: -Further recommendations forthcoming per surgeon -Continue NG tube for decompression -Keep patient nothing by mouth -Continue IV fluids -Continue pain medications and antiemetics as needed -GI prophylaxis Protonix and DVT prophylaxis subcu heparin Physician Fish Butcher note has been reviewed by physician. Signing provider agrees with the documented findings, assessment, and plan of care. Past Medical History Additional Past Medical History / Comment(s): Diverticulitis with rupture 03/2020 History of Any Multi-Drug Resistant Organisms: None Reported Past Surgical History: Hernia Repair Additional Past Surgical History / Comment(s): bowel resection with colostomy 03/2020, bob carpal tunnel, sigmoidoscopy, 08/14/20 colonsocopy reversal with ileostomy Past Anesthesia/Blood Transfusion Reactions: No Reported Reaction Past Psychological History: No Psychological Hx Reported Smoking Status: Current every day smoker Past Alcohol Use History: Occasional Past Drug Use History: None Reported - Past Family History Mother Family Medical History: Deep Vein Thrombosis (DVT) Medications and Allergies Home Medications Medication Instructions Recorded Confirmed Type RX: Aspirin EC [Ecotrin Low Dose] 81 mg PO HS 03/05/20 04/20/21 History RX: Cholecalciferol [Vitamin D3 50 mcg PO HS 03/05/20 04/20/21 History (25 Mcg = 1000 Iu)] RX: Glucos Sul 2Kcl/MSM/Chond/C/Mn 1 cap PO HS 03/05/20 04/20/21 History [Glucosamine Chondroitin Cap] RX: Omeprazole 20 mg PO DAILY 03/05/20 04/20/21 History RX: Vitamin B Complex 1 cap PO DAILY 03/05/20 04/20/21 History RX: Flaxseed Oil 1,000 mg PO HS 08/07/20 04/20/21 History Allergies Allergy/AdvReac Type Severity Reaction Status Date / Time morphine Allergy Anaphylaxis Verified 04/20/21 10:01 Surgical - Exam Vital Signs Temp Pulse Resp BP Pulse Ox 98.3 F 64 18 119/78 100 04/20/21 08:33 04/20/21 08:33 04/20/21 08:33 04/20/21 08:33 04/20/21 08:33 Results - Labs 04/20/21 09:12 04/20/21 09:12 Abnormal Lab Results - Last 24 Hours (Table) 04/20/21 04/20/21 04/20/21 Range/Units 09:12 09:12 09:12 WBC 14.9 H (3.8-10.6) k/uL Neutrophils # 12.4 H (1.3-7.7) k/uL Glucose 133 H (74-99) mg/dL Plasma Lactic Acid Gordo 2.2 H* (0.7-2.0) mmol/L Diabetes panel 04/20/21 Range/Units 09:12 Sodium 140 (137-145) mmol/L Potassium 4.5 (3.5-5.1) mmol/L Chloride 104 (98-107) mmol/L Carbon Dioxide 25 (22-30) mmol/L BUN 19 (9-20) mg/dL Creatinine 0.93 (0.66-1.25) mg/dL Glucose 133 H (74-99) mg/dL Calcium 9.6 (8.4-10.2) mg/dL AST 37 (17-59) U/L ALT 22 (4-49) U/L Alkaline Phosphatase 54 (38-126) U/L Total Protein 7.6 (6.3-8.2) g/dL Albumin 4.5 (3.5-5.0) g/dL Calcium panel 04/20/21 Range/Units 09:12 Calcium 9.6 (8.4-10.2) mg/dL Albumin 4.5 (3.5-5.0) g/dL Pituitary panel 04/20/21 Range/Units 09:12 Sodium 140 (137-145) mmol/L Potassium 4.5 (3.5-5.1) mmol/L Chloride 104 (98-107) mmol/L Carbon Dioxide 25 (22-30) mmol/L BUN 19 (9-20) mg/dL Creatinine 0.93 (0.66-1.25) mg/dL Glucose 133 H (74-99) mg/dL Calcium 9.6 (8.4-10.2) mg/dL Adrenal panel 04/20/21 Range/Units 09:12 Sodium 140 (137-145) mmol/L Potassium 4.5 (3.5-5.1) mmol/L Chloride 104 (98-107) mmol/L Carbon Dioxide 25 (22-30) mmol/L BUN 19 (9-20) mg/dL Creatinine 0.93 (0.66-1.25) mg/dL Glucose 133 H (74-99) mg/dL Calcium 9.6 (8.4-10.2) mg/dL Total Bilirubin 0.5 (0.2-1.3) mg/dL AST 37 (17-59) U/L ALT 22 (4-49) U/L Alkaline Phosphatase 54 (38-126) U/L Total Protein 7.6 (6.3-8.2) g/dL Albumin 4.5 (3.5-5.0) g/dL <Reuben Montemayor - Last Filed: 04/20/21 16:12> History of Present Illness as above. CAT scan reviewed. Keep nasogastric tube in place. Recheck abdominal x-rays tomorrow. May have ice chips. Surgical - Exam Vital Signs Temp Pulse Resp BP Pulse Ox 98.3 F 64 18 119/78 100 04/20/21 08:33 04/20/21 08:33 04/20/21 08:33 04/20/21 08:33 04/20/21 08:33 Results - Labs 04/20/21 09:12 04/20/21 09:12 Abnormal Lab Results - Last 24 Hours (Table) 04/20/21 04/20/21 04/20/21 Range/Units 09:12 09:12 09:12 WBC 14.9 H (3.8-10.6) k/uL Neutrophils # 12.4 H (1.3-7.7) k/uL Glucose 133 H (74-99) mg/dL Plasma Lactic Acid Gordo 2.2 H* (0.7-2.0) mmol/L Diabetes panel 04/20/21 Range/Units 09:12 Sodium 140 (137-145) mmol/L Potassium 4.5 (3.5-5.1) mmol/L Chloride 104 (98-107) mmol/L Carbon Dioxide 25 (22-30) mmol/L BUN 19 (9-20) mg/dL Creatinine 0.93 (0.66-1.25) mg/dL Glucose 133 H (74-99) mg/dL Calcium 9.6 (8.4-10.2) mg/dL AST 37 (17-59) U/L ALT 22 (4-49) U/L Alkaline Phosphatase 54 (38-126) U/L Total Protein 7.6 (6.3-8.2) g/dL Albumin 4.5 (3.5-5.0) g/dL Calcium panel 04/20/21 Range/Units 09:12 Calcium 9.6 (8.4-10.2) mg/dL Albumin 4.5 (3.5-5.0) g/dL Pituitary panel 04/20/21 Range/Units 09:12 Sodium 140 (137-145) mmol/L Potassium 4.5 (3.5-5.1) mmol/L Chloride 104 (98-107) mmol/L Carbon Dioxide 25 (22-30) mmol/L BUN 19 (9-20) mg/dL Creatinine 0.93 (0.66-1.25) mg/dL Glucose 133 H (74-99) mg/dL Calcium 9.6 (8.4-10.2) mg/dL Adrenal panel 04/20/21 Range/Units 09:12 Sodium 140 (137-145) mmol/L Potassium 4.5 (3.5-5.1) mmol/L Chloride 104 (98-107) mmol/L Carbon Dioxide 25 (22-30) mmol/L BUN 19 (9-20) mg/dL Creatinine 0.93 (0.66-1.25) mg/dL Glucose 133 H (74-99) mg/dL Calcium 9.6 (8.4-10.2) mg/dL Total Bilirubin 0.5 (0.2-1.3) mg/dL AST 37 (17-59) U/L ALT 22 (4-49) U/L Alkaline Phosphatase 54 (38-126) U/L Total Protein 7.6 (6.3-8.2) g/dL Albumin 4.5 (3.5-5.0) g/dL
[2021-04-20] MEDS: ONDANSETRON 4 MG/2 ML VIAL IVP PRN (15:25)
[2021-04-20] MEDS: PANTOPRAZOLE 40 MG/10 ML VIAL IVP SCH (15:26)
[2021-04-20] MEDS: HEPARIN SODIUM,PORCINE/PF 5,000 UNIT/0.5 ML SYRINGE SQ SCH (21:32)
[2021-04-21 05:54] LABS: Basophils % (A) 0 %; Eosinophils # (A) 0.4 k/uL (0-0.7); Eosinophils % (A) 4 %; HCT 41.3 % (39.0-53.0); HGB 13.3 gm/dL (13.0-17.5); Lymphocytes # (A) 2.5 k/uL (1.0-4.8); Lymphocytes % (A) 26 %; MCH 30.2 pg (25.0-35.0); MCHC 32.4 g/dL (31.0-37.0); MCV 93.4 fL (80.0-100.0); Mean Platelet Volume 6.9; Monocytes # (A) 0.5 k/uL (0-1.0); Monocytes % (A) 5 %; Neutrophils # (A) 6.2 k/uL (1.3-7.7); Neutrophils % (A) 64 %; Platelet Count 266 k/uL (150-450); RBC 4.42 m/uL (4.30-5.90); RDW 13.7 % (11.5-15.5); WBC 9.7 k/uL (3.8-10.6)
[2021-04-21] MEDS: HEPARIN SODIUM,PORCINE/PF 5,000 UNIT/0.5 ML SYRINGE SQ SCH ×2 (08:13→21:54)
[2021-04-21] MEDS: PANTOPRAZOLE 40 MG/10 ML VIAL IVP SCH (08:13)
--- NOTE | 2021-04-21 08:47 | XR ---
EXAMINATION TYPE: XR abdomen 2V DATE OF EXAM: 04/21/2021 COMPARISON: 03/06/2020 HISTORY: Pain TECHNIQUE: One view abdominal series FINDINGS: NG tube noted. Coarsened interstitium. Bowel gas pattern nonspecific with no obstruction. Arthropathy of the hips. Calcifications in the pelvis likely vascular. IMPRESSION: 1. Nonspecific abdomen. 2. Bibasilar interstitial infiltrates.
[2021-04-21 11:14] LABS: BUN/Creat Ratio 13.16 Ratio (12.00-20.00)
[2021-04-21 11:15] LABS: African American GFR (CKD) 110.8 (60.0-200.0); Anion Gap 10.4 mmol/L (10.00-18.00); Blood Urea Nitrogen 11.5 mg/dL (9.0-27.0); Calcium 8.5 mg/dL (8.7-10.3); Carbon Dioxide 23.7 mmol/L (20.0-27.5); Non-African American GFR(CKD) 95.6 (60.0-200.0)
[2021-04-21] MEDS: ONDANSETRON 4 MG/2 ML VIAL IVP PRN (11:16)
--- NOTE | 2021-04-21 11:53 | P.PN ---
<Patricia Milton - Last Filed: 04/21/21 11:49> Subjective Progress Note Date: 04/21/21 CHIEF COMPLAINT: Small bowel obstruction HISTORY OF PRESENT ILLNESS: Patient is a small bowel dissection. Currently has NG tube in place. NG tube had 700 mL output through the night. Currently no output. Patient started having bowel movements last night. He is passing flatus. Denies any abdominal pain. He is afebrile. White count has normalized from 14.9-9.7 abdominal x-ray shows nonspecific abdomen. Bibasilar interstitial infiltrates. PHYSICAL EXAM: VITAL SIGNS: Reviewed. GENERAL: Well-developed in no acute distress. HEENT: No sclera icterus. Extraocular movements grossly intact. Moist buccal mucosa. Head is atraumatic, normocephalic. ABDOMEN: Soft. Nondistended. Nontender. NEUROLOGIC: Alert and oriented. Cranial nerves II through XII grossly intact. ASSESSMENT: 1. Small bowel obstruction PLAN: -Further recommendations forthcoming per surgeon -Continue NG tube for decompression -Keep patient nothing by mouth -Continue IV fluids -Continue pain medication and antiemetics as needed -GI prophylaxis Protonix and DVT prophylaxis subcu heparin Physician Power Lineman note has been reviewed by physician. Signing provider agrees with the documented findings, assessment, and plan of care. Objective - Vital Signs Vital signs: Vital Signs Temp 97.9 F 04/21/21 02:00 Pulse 69 04/21/21 02:00 Resp 18 04/20/21 20:00 BP 127/79 04/21/21 02:00 Pulse Ox 96 04/21/21 02:00 Intake & Output 04/20/21 04/21/21 04/21/21 18:59 06:59 18:59 Intake Total 200 Output Total 700 Balance -500 Weight 81.647 kg Intake: IV 200 Sodium Chloride 0.9% 1, 200 000 ml @ 100 mls/hr IV . Q10H ONE Rx#:[id number] Output: Gastric Drainage 700 Other: Voiding Method Toilet # Voids 1 2 - Labs CBC & Chem 7: 04/21/21 05:16 04/21/21 05:16 Labs: Abnormal Lab Results - Last 24 Hours (Table) 04/21/21 Range/Units 05:16 Calcium 8.5 L (8.7-10.3) mg/dL <Reuben Montemayor - Last Filed: 04/21/21 12:42> Subjective As above. Patient feels better today. He did have a large bowel movement. We'll order small bowel series for tomorrow morning for both diagnostic and therapeutic purposes. Keep nasogastric tube in place for now. Objective - Vital Signs Vital signs: Vital Signs Temp 97.9 F 04/21/21 02:00 Pulse 69 04/21/21 02:00 Resp 18 04/20/21 20:00 BP 127/79 04/21/21 02:00 Pulse Ox 96 04/21/21 02:00 Intake & Output 04/20/21 04/21/21 04/21/21 18:59 06:59 18:59 Intake Total 200 Output Total 700 Balance -500 Weight 81.647 kg Intake: IV 200 Sodium Chloride 0.9% 1, 200 000 ml @ 100 mls/hr IV . Q10H ONE Rx#:[id number] Output: Gastric Drainage 700 Other: Voiding Method Toilet # Voids 1 2 - Labs CBC & Chem 7: 04/21/21 05:16 04/21/21 05:16 Labs: Abnormal Lab Results - Last 24 Hours (Table) 04/21/21 Range/Units 05:16 Calcium 8.5 L (8.7-10.3) mg/dL
[2021-04-22 05:00] VITALS: RESP 18
[2021-04-22] MEDS: PANTOPRAZOLE 40 MG/10 ML VIAL IVP SCH (10:09)
[2021-04-22] MEDS: HEPARIN SODIUM,PORCINE/PF 5,000 UNIT/0.5 ML SYRINGE SQ SCH (10:09)
--- NOTE | 2021-04-22 11:38 | P.PN ---
<Patricia Milton - Last Filed: 04/22/21 11:36> Subjective Progress Note Date: 04/22/21 CHIEF COMPLAINT: Small bowel obstruction HISTORY OF PRESENT ILLNESS: Patient has small bowel obstruction. Patient did have a small bowel series completed this morning. Results are pending. Patient did have multiple bowel movements after test. Patient's NG tube accidentally came out this morning. Patient did have about 400 mL of brownish output through NG tube through the night. Denies any abdominal pain. Denies any nausea or vomiting. Afebrile. No new labs PHYSICAL EXAM: VITAL SIGNS: Reviewed. GENERAL: Well-developed in no acute distress. HEENT: No sclera icterus. Extraocular movements grossly intact. Moist buccal mucosa. Head is atraumatic, normocephalic. ABDOMEN: Soft. Nondistended. Nontender. NEUROLOGIC: Alert and oriented. Cranial nerves II through XII grossly intact. ASSESSMENT: 1. Small bowel obstruction PLAN: -Further recommendations forthcoming per surgeon -Follow up on small bowel series results -Okay to keep NG tube out -Keep patient nothing by mouth -Continue IV fluids -Continue pain medication and antiemetics as needed -GI prophylaxis Protonix and DVT prophylaxis subcu heparin Physician Retail And Restaurant Associate note has been reviewed by physician. Signing provider agrees with the documented findings, assessment, and plan of care. Objective - Vital Signs Vital signs: Vital Signs Temp 98.1 F 04/22/21 05:00 Pulse 82 04/22/21 05:00 Resp 18 04/22/21 05:00 BP 122/76 04/22/21 05:00 Pulse Ox 96 04/22/21 05:00 Intake & Output 04/21/21 04/22/21 04/22/21 18:59 06:59 18:59 Intake Total 1200 1200 Output Total 600 Balance 1200 600 Intake: IV 1200 Sodium Chloride 0.9% 1, 1200 000 ml @ 100 mls/hr IV . Q10H ONE Rx#:[id number] Intake, IV Titration 1200 Amount Sodium Chloride 0.9% 1, 1200 000 ml @ 100 mls/hr IV . Q10H ONE Rx#:[id number] Output: Urine 600 Other: Voiding Method Toilet Toilet Toilet # Voids 2 1 # Bowel Movements 2 - Labs CBC & Chem 7: 04/21/21 05:16 04/21/21 05:16 Labs: Microbiology - Last 24 Hours (Table) 04/20/21 11:27 Blood Culture - Preliminary Blood No Growth after 24 hours 04/20/21 11:27 Blood Culture - Preliminary Blood No Growth after 24 hours <Reuben Montemayor - Last Filed: 04/22/21 13:09> Subjective As above. Small bowel series results look good. Begin liquid diet. Anticipate discharge today. Objective - Vital Signs Vital signs: Vital Signs Temp 98.1 F 04/22/21 05:00 Pulse 82 04/22/21 05:00 Resp 18 04/22/21 05:00 BP 122/76 04/22/21 05:00 Pulse Ox 96 04/22/21 05:00 Intake & Output 04/21/21 04/22/21 04/22/21 18:59 06:59 18:59 Intake Total 1200 1200 Output Total 600 Balance 1200 600 Intake: IV 1200 Sodium Chloride 0.9% 1, 1200 000 ml @ 100 mls/hr IV . Q10H ONE Rx#:[id number] Intake, IV Titration 1200 Amount Sodium Chloride 0.9% 1, 1200 000 ml @ 100 mls/hr IV . Q10H ONE Rx#:[id number] Output: Urine 600 Other: Voiding Method Toilet Toilet Toilet # Voids 2 1 # Bowel Movements 2 - Labs CBC & Chem 7: 04/21/21 05:16 04/21/21 05:16 Labs: Microbiology - Last 24 Hours (Table) 04/20/21 11:27 Blood Culture - Preliminary Blood No Growth after 24 hours 04/20/21 11:27 Blood Culture - Preliminary Blood No Growth after 24 hours
--- NOTE | 2021-04-22 11:51 | FL ---
EXAMINATION TYPE: FL small bowel follow through DATE OF EXAM: 04/22/2021 CLINICAL HISTORY: Small bowel obstruction, recent abnormal CT. Patient had diverticulitis with ostomy that was reversed roughly 8 months earlier. Patient presented with abdominal pain to the Emergency R oom 2 days ago. TECHNIQUE: A single contrast small bowel follow through is performed utilizing barium. 0 minute of fluoro time and 5 images obtained. COMPARISON: CT abdomen and pelvis from 2 days ago FINDINGS: New nasogastric tube with decompressed stomach. Patient Relations Liaison image of the abdomen shows overall n onspecific and nonobstructive bowel gas pattern. Surgical sutures in the pelvis is sigmoid colonic an astomosis redemonstrated. Scattered pelvic phleboliths redemonstrated. The small bowel study shows normal transit to the colon in less than 30 minutes. There is a normal m ucosal fold pattern throughout the small bowel. Prominent dilated fluid-filled small bowel loops in t he left lower quadrant and pelvis now not clearly seen. IMPRESSION: No persistent small bowel obstruction. Findings improved from 2 days earlier. Correlate celina mondragon.
[2021-04-22 14:08] VITALS: BP 132/77; PULSE 67; TEMP 98.3
--- NOTE | 2021-04-22 14:35 | P.DS ---
Providers Date of admission: 04/20/21 11:03 Expected date of discharge: 04/22/21 Attending physician: Reuben Montemayor Primary care physician: Ross Lou Hospital Course: Discharge diagnosis 1. Small bowel obstruction Hospital course This is a 55-year-old male with a known history of perforated sigmoid diverticulitis status post sigmoid colectomy with end colostomy in March 2020. In August 2020 patient underwent reversal of his colostomy and was found to have a small leak at the anastomosis and required a diverting loop ileostomy. Ileostomy was reversed in September 2020. Patient had been in good health and well. I patient reports that he had some noted onset of lower mid and left sided abdominal pain around 4 AM this morning. He complains that it was a severe antonio type of pain and rates it about a 10 out of 10. He had nausea no episodes of vomiting. His last bowel movement was yesterday. And since then he has had no further bowel movements or flatus. He did have cold sweats with the severe pain. Patient had computed tomography scan abdomen and pelvis and findings suggest small bowel obstruction. Patient had NG tube placed for decompression of the bowel. Patient was kept nothing by mouth. Patient had small bowel follow-through study completed showing no persistent small bowel obstruction. Patient is having bowel movements and flatus. NG tube removed. He was started on a clear liquid diet. He denies any abdominal pain. He is afebrile. He is up and ambulating. He is stable for discharge. Please refer to chart for any further details. Physician Salvage Inspector note has been reviewed by physician. Signing provider agrees with the documented findings, assessment, and plan of care. Patient Condition at Discharge: Stable Plan - Discharge Summary Discharge Rx Participant: No New Discharge Prescriptions: Continue Vitamin B Complex 1 cap PO DAILY Aspirin EC [Ecotrin Low Dose] 81 mg PO HS Omeprazole 20 mg PO DAILY Glucos Sul 2Kcl/MSM/Chond/C/Mn [Glucosamine Chondroitin Cap] 1 cap PO HS Cholecalciferol [Vitamin D3 (25 Mcg = 1000 Iu)] 50 mcg PO HS Flaxseed Oil 1,000 mg PO HS Discharge Medication List Aspirin EC [Ecotrin Low Dose] 81 mg PO HS 03/05/20 [History] Cholecalciferol [Vitamin D3 (25 Mcg = 1000 Iu)] 50 mcg PO HS 03/05/20 [History] Glucos Sul 2Kcl/MSM/Chond/C/Mn [Glucosamine Chondroitin Cap] 1 cap PO HS 03/05/20 [History] Omeprazole 20 mg PO DAILY 03/05/20 [History] Vitamin B Complex 1 cap PO DAILY 03/05/20 [History] Flaxseed Oil 1,000 mg PO HS 08/07/20 [History] Follow up Appointment(s)/Referral(s): Ross Lou MD [Primary Care Provider] - 1-2 days Reuben Montemayor MD [Family Provider] - 1 Week Activity/Diet/Wound Care/Special Instructions: Advance diet as tolerated at home Discharge Disposition: HOME SELF-CARE
== END 2021-04-22 15:36 | disposition home or self-care (01) | DRG 390 ==
LOC: EC 08:24 → 5NMEDONC 11:03
PROVIDERS: ADMIT Surgery; ATTEND Surgery
PROC: 0D9670Z Drainage of Stomach with Drainage Device, Via Natural or Artificial Opening (ICD-10-PCS; principal; 2021-04-20)
DX: K56.609 Unspecified intestinal obstruction, unspecified as to partial versus complete obstruction (principal); Z20.822 Contact with and (suspected) exposure to COVID-19; F17.210 Nicotine dependence, cigarettes, uncomplicated; R11.0 Nausea; Z88.5 Allergy status to narcotic agent; Z79.82 Long term (current) use of aspirin; Z79.899 Other long term (current) drug therapy; Z87.19 Personal history of other diseases of the digestive system; Z90.49 Acquired absence of other specified parts of digestive tract; Z93.3 Colostomy status
CPT/HCPCS: 36415; 71045; 74019; 74177; 74250; 80048; 80053; 81003; 83605; 83690; 84484; 85025; 87040; 87635; 93005; 96361; 96374; 96375; 99285

== ENCOUNTER 2021-09-17 08:03 | Day surgery (SDC) | payer BC ==
[2021-09-15 13:08] VITALS: BMI 26.6
[~2021-09-17 08:03] MED LIST changes: +ACETAMINOPHEN TAB 500 MG TAB PO PRN; -ALVIMOPAN 12 MG CAPSULE PO PRN; +LACTATED RINGERS 1,000 ML IV SCH; -MIDAZOLAM 2 MG/2 ML VIAL IV PRN; -metroNIDAZOLE-NS PMX 500 MG in SALINE 1 100ML.BAG IVPB PRN
[2021-09-17 08:49] LABS: Glucose,Whole Blood 91 mg/dL (75-99)
[2021-09-17] MEDS ORDERED: LACTATED RINGERS 1,000 ML IV ONE ×2 (08:52→12:06)
--- NOTE | 2021-09-17 09:01 | P.GSHP ---
History of Present Illness H&P Date: 09/17/21 Chief Complaint: Incisional hernia 55-year-old male presents to the hospital today for elective repair reducible incisional hernia. Hernia is present at the previous colostomy and ileostomy site. Mild discomfort at times. Hernia increasing in size. No nausea or vomiting. Past Medical History Past Medical History: GERD/Reflux, Hearing Disorder / Deafness, Osteoarthritis (OA) Additional Past Medical History / Comment(s): See Dr Montemayor's H&P. Hard of hearing. Hx Diverticulitis with rupture 03/2020. History of Any Multi-Drug Resistant Organisms: None Reported Past Surgical History: Bowel Resection, Hernia Repair, Orthopedic Surgery Additional Past Surgical History / Comment(s): 03/2020 Bowel resection with colostomy then reversed/had leak at anastamosis then ileostomy which was reversed, sigmoidoscopy, colonoscopy, umbilical hernia repair, bilateral carpal tunnel released. Past Anesthesia/Blood Transfusion Reactions: No Reported Reaction Additional Past Anesthesia/Blood Transfusion Reaction / Comment(s): Clausterphobia. Past Psychological History: No Psychological Hx Reported Smoking Status: Current every day smoker Past Alcohol Use History: Rare Additional Past Alcohol Use History / Comment(s): Started smoking at age 18, had quit for 12 yrs and restarted in 2019, smokes 1/2 PPD, states less currently, going to quit. Past Drug Use History: None Reported - Past Family History Mother Family Medical History: Dementia, Deep Vein Thrombosis (DVT) Additional Family Medical History / Comment(s): Mother is from Alzheimer's. Father Family Medical History: Myocardial Infarction (RI) Additional Family Medical History / Comment(s): Father of a RI at the age of 80yrs. Medications and Allergies Home Medications Medication Instructions Recorded Confirmed Type Omeprazole Magnesium [PriLOSEC] 20 mg PO QAM 09/15/21 09/15/21 History Allergies Allergy/AdvReac Type Severity Reaction Status Date / Time morphine Allergy Anaphylaxis Verified 09/15/21 12:56 Surgical - Exam Vital Signs Temp Pulse Resp BP Pulse Ox 97.8 F 62 18 125/85 97 09/17/21 08:36 09/17/21 08:36 09/17/21 08:36 09/17/21 08:36 09/17/21 08:36 Physical exam: General: Well-developed, well-nourished HEENT: Normocephalic, sclerae nonicteric Abdomen: Nontender, nondistended, prior scars noted, reducible small to moderate-sized incisional hernia at prior ileostomy site left lower quadrant, smaller asymptomatic incisional hernia along midline supraumbilical Extremities: No edema Neuro: Alert and oriented Assessment and Plan (1) Incisional hernia Narrative/Plan: 55-year-old male with incisional hernia at prior ostomy site left lower quadrant. We'll proceed with open repair with mesh at this time. Risks of bleeding, infection, recurrence, bladder and bowel injury, numbness, nerve injury were discussed with the patient. The patient understands and wishes to proceed. Current Visit: Yes Status: Acute Code(s): K43.2 - INCISIONAL HERNIA WITHOUT OBSTRUCTION OR GANGRENE SNOMED Code(s): 305564850
[2021-09-17 09:04] LABS: Basophils # (A) 0.1 k/uL (0-0.2); Basophils % (A) 1 %; Eosinophils # (A) 0.3 k/uL (0-0.7); Eosinophils % (A) 4 %; HCT 45.4 % (39.0-53.0); HGB 14.7 gm/dL (13.0-17.5); Lymphocytes # (A) 2.5 k/uL (1.0-4.8); Lymphocytes % (A) 29 %; MCH 29.2 pg (25.0-35.0); MCHC 32.4 g/dL (31.0-37.0); MCV 90.1 fL (80.0-100.0); Mean Platelet Volume 7.1; Monocytes # (A) 0.6 k/uL (0-1.0); Monocytes % (A) 7 %; Neutrophils # (A) 5.2 k/uL (1.3-7.7); Neutrophils % (A) 59 %; Platelet Count 245 k/uL (150-450); RBC 5.04 m/uL (4.30-5.90); RDW 13.3 % (11.5-15.5); WBC 8.8 k/uL (3.8-10.6)
[2021-09-17] MEDS ORDERED: fentaNYL (PF) 50 MCG/ML 2 ML AMP ONE (11:07)
[2021-09-17] MEDS ORDERED: NEOSTIGMINE 1 MG/ML 10 ML VIAL ONE (11:07)
[2021-09-17] MEDS ORDERED: ROCURONIUM 10 MG/ML (5 ML VIAL) IV ONE (11:07)
[2021-09-17] MEDS ORDERED: GLYCOPYRROLATE 0.2 MG/ML 2 ML VIAL ONE (11:07)
[2021-09-17] MEDS ORDERED: SUCCINYLCHOLINE CHLORIDE 100 MG/5 ML SYR IV ONE (11:07)
[2021-09-17] MEDS ORDERED: HYDROmorphone (PF) 1 MG/ML ONE (11:07)
[2021-09-17] MEDS ORDERED: LIDOCAINE 2% INJ 20 MG/ML (2 ML VIAL) ONE (11:07)
[2021-09-17] MEDS ORDERED: ePHEDrine 50 MG/ML 1 ML VIAL ONE (11:07)
[2021-09-17] MEDS ORDERED: PROPOFOL 10 MG/ML 20 ML VIAL IV ONE (11:07)
[2021-09-17] MEDS ORDERED: MIDAZOLAM 2 MG/2 ML VIAL ONE (11:07)
[2021-09-17] MEDS ORDERED: LIDOCAINE 4% LTA KIT (4 ML) TOPICAL ONE (11:07)
[2021-09-17 12:41] VITALS: TEMP 97.2
[2021-09-17] MEDS: HYDROmorphone 0.5 MG/0.5 ML SYRINGE IVP PRN ×2 (12:46→12:56)
[2021-09-17] MEDS ORDERED: ACETAMINOPHEN TAB 325 MG TAB PO SCH (13:00)
--- NOTE | 2021-09-17 13:12 | P.OP ---
Date of Procedure: 09/17/21 Procedure(s) Performed: PREOPERATIVE DIAGNOSIS: Reducible incisional hernia POSTOPERATIVE DIAGNOSIS: Same PROCEDURE: Repair reducible incisional hernia with mesh SURGEON: Dr. Montemayor ANESTHESIA: General OPERATIVE PROCEDURE DETAILS: Patient placed on the operating table in the supine position. Abdomen was prepped and draped in usual sterile fashion. The previous ostomy incision was excised. Dissection through the subcutaneous tissues took place using electrocautery. The hernia defect was identified. The hernia sac was carefully dissected down to the level of the fascia where it was excised. The patient had a single defect in the fascia measuring 2 x 2 centimeters. The peritoneum deep to the rectus was freed of any adhesions using sharp dissection. There were only a few loose bowel adhesions present there. Once I had adequate space thus 6.4 cm ventral X mesh was placed beneath the fascia and sutured to the fascia using trans-fascial #2 Ethibond sutures. Following that the rectus fascia was reapproximated using [id number] #2 Ethibond sutures. The subcutaneous tissues were closed using 3-0 Vicryl sutures. The skin was closed using sudarshan. Sterile dressings were applied. HERNIA CHARACTERISTICS: Length: 2 cm Width: 2 cm Type: Reducible incisional TYPE OF MESH USED: 6.4 cm ventral X LOCATION OF MESH: ipom FIXATION: Trans-fascial #2 Ethibond sutures PREOPERATIVE DISCUSSION ON SMOKING CESSASTION: Yes PREOPERATIVE DISCUSSION ON MORBID OBESITY: Yes PREOPERATIVE DISCUSSION ON APPROPRIATE USE OF NARCOTIC USE: Yes PREOPERATIVE EDUCATION: Multi Modal, Smoking Cessation and Weight Loss with BMI over 35. DISPOSITION: Stable to recovery room
[2021-09-17] MEDS ORDERED: HYDROcodone/APAP 5-325MG 1 EACH TAB PO ONE (13:44)
[2021-09-17] MEDS ORDERED: HYDROcodone/APAP 5-325MG 1 EACH TAB ONE (13:44)
[2021-09-17 13:51] VITALS: RESP 18
[2021-09-17 14:18] VITALS: BP 127/83; PULSE 67
[2021-09-17] MEDS ORDERED: IBUPROFEN 600 MG TAB PO SCH (16:00)
== END 2021-09-17 15:30 | disposition home or self-care (01) ==
LOC: OR 08:03
PROVIDERS: ATTEND Surgery
DX: K43.2 Incisional hernia without obstruction or gangrene (principal); K21.9 Gastro-esophageal reflux disease without esophagitis; F17.200 Nicotine dependence, unspecified, uncomplicated; M19.90 Unspecified osteoarthritis, unspecified site; Z82.49 Family history of ischemic heart disease and other diseases of the circulatory system; Z93.3 Colostomy status
CPT/HCPCS: 49560; 49568; 85025; 88302; C1781; J2250; J1100; J2710; J2405; J3010; J1170 ×2; J0330; J2704; J1644; J2001

== ENCOUNTER 2022-02-08 09:32 | Inpatient (IN) | payer BC ==
[2022-02-08 11:01] LABS: Urn Cannabinoid Scrn Not Detected (NotDetected)
[2022-02-08 11:02] LABS: Amphetamine Screen,Urine Not Detected (NotDetected); Barbiturate Screen,Urine Not Detected (NotDetected); Benzodiazepines Screen,Urine Not Detected (NotDetected); Cocaine Screen,Urine Not Detected (NotDetected); Methadone Screen, Urine Not Detected (NotDetected); Opiate Screen,Urine Not Detected (NotDetected); Oxycodone Screen, Urine Not Detected (NotDetected); Phencyclidine Screen,Urine Not Detected (NotDetected); Tricyclic Antidepressant,Urine Not Detected (NotDetected)
--- NOTE | 2022-02-08 12:47 | ED ---
Psych HPI - General Chief Complaint: Psychiatric Symptoms Stated Complaint: mental health Time Seen by Provider: 02/08/22 09:45 Source: patient, family, RN notes reviewed Mode of arrival: ambulatory Limitations: no limitations - History of Present Illness Initial Comments: 56-year-old male presents emergency Department with chief complaint of depression. Patient states she's been having increased depression states that he feels very hopeless, feels useless in the world. Patient states that he has not attempted to harm himself. He doesn't have exact thoughts of harming himself. Denies illicit drug use no alcohol abuse. Patient states that he was recently diagnosed with hypertension he denies any prior psychiatric history in which she is on medications for. Patient offers no complaints. - Related Data Home Medications Medication Instructions Recorded Confirmed Omeprazole Magnesium [PriLOSEC] 20 mg PO DAILY 09/15/21 02/08/22 amLODIPine [Norvasc] 2.5 mg PO DAILY 02/08/22 02/08/22 Allergies Allergy/AdvReac Type Severity Reaction Status Date / Time morphine Allergy Anaphylaxis Verified 02/08/22 11:02 Review of Systems ROS Statement: Those systems with pertinent positive or pertinent negative responses have been documented in the HPI. ROS Other: All systems not noted in ROS Statement are negative. Past Medical History Past Medical History: GERD/Reflux, Hearing Disorder / Deafness, Osteoarthritis (OA) Additional Past Medical History / Comment(s): See Dr Montemayor's H&P. Hard of hearing. Hx Diverticulitis with rupture 03/2020. History of Any Multi-Drug Resistant Organisms: None Reported Past Surgical History: Bowel Resection, Hernia Repair, Orthopedic Surgery Additional Past Surgical History / Comment(s): 03/2020 Bowel resection with colostomy then reversed/had leak at anastamosis then ileostomy which was reversed, sigmoidoscopy, colonoscopy, umbilical hernia repair, bilateral carpal tunnel released. Past Anesthesia/Blood Transfusion Reactions: No Reported Reaction Additional Past Anesthesia/Blood Transfusion Reaction / Comment(s): Clausterphobia. Past Psychological History: No Psychological Hx Reported Smoking Status: Current every day smoker Past Alcohol Use History: Rare Past Drug Use History: None Reported - Past Family History Mother Family Medical History: Dementia, Deep Vein Thrombosis (DVT) Additional Family Medical History / Comment(s): Mother is from Alzheimer's. Father Family Medical History: Myocardial Infarction (NE) Additional Family Medical History / Comment(s): Father of a NE at the age of 80yrs. General Exam Limitations: no limitations General appearance: alert, in no apparent distress Head exam: Present: atraumatic, normocephalic, normal inspection Eye exam: Present: normal appearance, PERRL, EOMI. Absent: scleral icterus, conjunctival injection, periorbital swelling ENT exam: Present: normal exam, mucous membranes moist Neck exam: Present: normal inspection, full ROM. Absent: tenderness, meningismus, lymphadenopathy Respiratory exam: Present: normal lung sounds bilaterally. Absent: respiratory distress, wheezes, rales, rhonchi, stridor Cardiovascular Exam: Present: regular rate, normal rhythm, normal heart sounds. Absent: systolic murmur, diastolic murmur, rubs, gallop, clicks Neurological exam: Present: alert, oriented X3 Psychiatric exam: Present: depressed Skin exam: Present: warm, dry, intact, normal color. Absent: rash Course Vital Signs 02/08/22 09:41 Temperature 98.1 F Pulse Rate 89 Respiratory 16 Rate Blood Pressure 158/104 O2 Sat by Pulse 99 Oximetry Medical Decision Making - Medical Decision Making Patient was evaluated by EPS case discussed with psychiatrist will admit for further treatment. - Lab Data Lab Results 02/08/22 Range/Units 10:21 Urine Opiates Screen Not Detected (NotDetected) Ur Oxycodone Screen Not Detected (NotDetected) Urine Methadone Screen Not Detected (NotDetected) Ur Propoxyphene Screen Not Detected (NotDetected) Ur Barbiturates Screen Not Detected (NotDetected) U Tricyclic Antidepress Not Detected (NotDetected) Ur Phencyclidine Scrn Not Detected (NotDetected) Ur Amphetamines Screen Not Detected (NotDetected) U Methamphetamines Scrn Not Detected (NotDetected) U Benzodiazepines Scrn Not Detected (NotDetected) Urine Cocaine Screen Not Detected (NotDetected) U Marijuana (THC) Screen Not Detected (NotDetected) Disposition Clinical Impression: Depression Disposition: TRANSFER TO PSYCH HOSP/UNIT Condition: Fair Referrals: Ross Lou MD [Primary Care Provider] - 1-2 days Time of Disposition: 13:34
[2022-02-08] MEDS ORDERED: LORazepam 1 MG TAB PO STA ×2 (13:32→19:19)
[2022-02-08] MEDS ORDERED: MAGNESIUM HYDROXIDE 2,400 MG/10 ML CUP PO PRN (22:55)
[2022-02-08] MEDS ORDERED: ACETAMINOPHEN TAB 325 MG TAB PO PRN (22:55)
[2022-02-08] MEDS ORDERED: LORazepam 1 MG TAB PO PRN (22:55)
[2022-02-08] MEDS ORDERED: HALOPERIDOL LACTATE 5 MG/ML 1 ML VIAL IM PRN (22:55)
[2022-02-08] MEDS ORDERED: MAG HYDROX/AL HYDROX/SIMETH 30 ML CUP PO PRN (22:55)
[2022-02-08] MEDS ORDERED: LORazepam 2 MG/ML INJ IM PRN (23:00)
[2022-02-08] MEDS ORDERED: haloperidoL 5 MG TAB PO PRN (23:02)
[2022-02-08] MEDS: NICOTINE 14MG/24HR PATCH TRANSDERM SCH (23:55)
[2022-02-09] MEDS: PANTOPRAZOLE 40 MG TABLET PO SCH (08:51)
[2022-02-09] MEDS: amLODIPine 2.5 MG TAB PO SCH (08:51)
[2022-02-09] MEDS: NICOTINE 14MG/24HR PATCH TRANSDERM SCH (08:51)
--- NOTE | 2022-02-09 11:25 | P.HP ---
Psychiatric H&P - . H&P Date: 02/09/22 History & Physical: Allergies Allergy/AdvReac Type Severity Reaction Status Date / Time morphine Allergy Anaphylaxis Verified 02/08/22 11:02 Vital Signs Temp 97.8 F 02/08/22 23:46 Pulse 71 02/09/22 08:52 Resp 16 02/08/22 23:46 BP 156/86 02/09/22 08:52 Pulse Ox 97 02/08/22 23:46 FiO2 Intake & Output 02/08/22 02/09/22 02/09/22 18:59 06:59 18:59 Weight 83.915 kg 84.368 kg Laboratory Last Values Urine Opiates Screen Not Detected (NotDetected) 02/08/22 10:21 Ur Oxycodone Screen Not Detected (NotDetected) 02/08/22 10:21 Urine Methadone Screen Not Detected (NotDetected) 02/08/22 10:21 Ur Propoxyphene Screen Not Detected (NotDetected) 02/08/22 10:21 Ur Barbiturates Screen Not Detected (NotDetected) 02/08/22 10:21 U Tricyclic Antidepress Not Detected (NotDetected) 02/08/22 10:21 Ur Phencyclidine Scrn Not Detected (NotDetected) 02/08/22 10:21 Ur Amphetamines Screen Not Detected (NotDetected) 02/08/22 10:21 U Methamphetamines Scrn Not Detected (NotDetected) 02/08/22 10:21 U Benzodiazepines Scrn Not Detected (NotDetected) 02/08/22 10:21 Urine Cocaine Screen Not Detected (NotDetected) 02/08/22 10:21 U Marijuana (THC) Screen Not Detected (NotDetected) 02/08/22 10:21 Coronavirus (PCR) Not Detected (Not Detectd) 02/08/22 13:51 IDENTIFYING DATA: Patient is a 56 yo male, who is currently , 3 kids, 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 HPI: Patient presented to the hospital yesterday complaining of panic attacks, anxiety and depression. According to Er note patient was endorsing hopelessness and suicidal thoughts. Patient signed voluntary and was admitted to the psychunit. Patients UDS was negative for any substances. He claims that he was feeling "very overwhelmed" and spoke about his stressors at work. He states lately his job has been letting people go and more and more work load has been going on to him. He states that he wants to leave. He claims that he is working at this job since 2008. He states that he never had a panic attack before and felt that "the world was ending". He states that his helps him get to the hospital if she is dealt with similar situations in the past. He states that he felt that his heart was racing and his anxiety level was very high. He claims that he was going on for the past day. He states that he is feeling depressed at this time. He claims that he used to be on Celexa in the past which has helped. He claims that his sleep has been on and off and appetite as been fairly good. Patient denies any suicidal or homicidal ideations intent or plan. At this time patient denies any auditory or visual hallucinations. Patient denies any flight of ideas racing thoughts and increased in goal directed behavior. Patient admits to using cigarettes daily, alcohol occasionally. PAST PSYCHIATRIC HISTORY: Patient states that he has a history of anxiety and depression. He claimed that he was previously on Wellbutrin and also on Celexa however states that Wellbutrin gave him sexual side effects. Patient denies any previous psychiatric hospitalizations. Patient denies any psychiatric outpatient follow-up. Patient denies any history of suicide attempts in the past. Past Medical History: GERD/Reflux, Hearing Disorder / Deafness, Osteoarthritis (OA) Additional Past Medical History / Comment(s): See Dr Montemayor's H&P. Hard of hearing. Hx Diverticulitis with rupture 03/2020. ALLERGIES: as per EMR CHEMICAL DEPENDENCY HISTORY: as per HPI FAMILY PSYCHIATRIC/SUBSTANCE USE HISTORY: Claims that his daughter has anxiety and depression SOCIAL HISTORY: Patient was born and raised in [place] and also in [place]. He claims that he completed high school and did some college. He is currently and has 3 kids, lives in a house. She works as a blow molding machine operator. Denies any legal history. MENTAL STATUS EXAM: General Appearance: Patient appears to be well built, bald, stated age is alert, directable, and attempts to cooperate. Patient appears to have fair hygiene and grooming. Behavior: Patient is seated without any agitated behavior. Speech: Patient's speech is fluent and nonpressured. Mood/Affect: Patient reports their mood is depressed and anxious, affect is congruent and constricted. Suicidality/Homicidality: Patient denies having any homicidal ideation intent or plan. Denies any suicidal ideations intent or plan Perceptions: Patient denies any visual hallucinations and denies any auditory h allucinations Though content/process: There is no evidence of any delusional thought content and thought process is linear and goal-directed. Memory and concentration: AOX3, grossly intact for the purposes of this session. Can spell "WORLD" backwards Judgment and insight: Fair STRENGTHS/WEAKNESSES: strength is that patient is resilient. Weakness is that patient has financial/job stressors INTELLECT: average IMPRESSIONS: Depressive disorder unspecified Panic attack Nicotine dependence PLAN: -Patient is admitted under voluntary status to [facility] for stabilization of psychiatric symptoms and safety. Patient has signed adult voluntary form and medication consent and is placed in patient's chart. -Medications : Will start patient on Cymbalta 30 mg daily for mood/anxiety. Melatonin 5 mg daily at bedtime for sleep. -Ativan and Haldol PRN for agitation/aggression -Patient was informed of the risks, benefits and side effects of the medication and patient verbally consented to taking the medications. Patient signed med consent form and was placed in chart. -Internal Medicine consult to perform medical evaluation and physical. -NRT - nicotine patch -SW on board for discharge planning. Encourage patient to participate in groups to work on coping skills.
[2022-02-09] MEDS: DULoxetine HCL 30 MG CAPSULE.DR PO SCH (12:00)
[2022-02-09] MEDS ORDERED: INFLUENZA VACC (6 MOS-64 YRS) 60 MCG/0.5 ML SYRINGE IM ONE (12:00)
[2022-02-09] MEDS ORDERED: DOCUSATE 100 MG CAP PO PRN (12:40)
[2022-02-09] MEDS ORDERED: PSYLLIUM HUSK 100% 6 GM PACKET PO SCH (12:45)
[2022-02-09 12:52] LABS: Basophils % (A) 1 %; Eosinophils # (A) 0.2 k/uL (0-0.7); Eosinophils % (A) 3 %; HCT 46.8 % (39.0-53.0); HGB 15.4 gm/dL (13.0-17.5); Lymphocytes # (A) 1.9 k/uL (1.0-4.8); Lymphocytes % (A) 25 %; Mean Platelet Volume 7.2; Monocytes # (A) 0.5 k/uL (0-1.0); Monocytes % (A) 6 %; Neutrophils # (A) 5.1 k/uL (1.3-7.7); Neutrophils % (A) 64 %; Platelet Count 283 k/uL (150-450); RBC 5.14 m/uL (4.30-5.90); WBC 7.9 k/uL (3.8-10.6)
[2022-02-09 13:07] LABS: ALT 27 U/L (4-49); AST 26 U/L (17-59); African American GFR (CKD) >90 (>60 ml/min/1.73 sqM); Albumin 4.4 g/dL (3.5-5.0); Alkaline Phosphatase 51 U/L (38-126); Anion Gap 10 mmol/L; Blood Urea Nitrogen 11 mg/dL (9-20); Calcium 9.3 mg/dL (8.4-10.2); Carbon Dioxide 30 mmol/L (22-30); Chloride 101 mmol/L (98-107); Glucose 71 mg/dL (74-99); Non-African American GFR(CKD) 88 (>60 ml/min/1.73 sqM); Potassium 4.8 mmol/L (3.5-5.1); Sodium 141 mmol/L (137-145); Total Bilirubin 0.4 mg/dL (0.2-1.3); Total Protein 6.9 g/dL (6.3-8.2)
[2022-02-09] MEDS: PSYLLIUM HUSK 100% 6 GM PACKET PO SCH ×2 (13:44→18:09)
[2022-02-09] MEDS ORDERED: OMEPRAZOLE MAGNESIUM 20 MG PO SCH (13:45)
[2022-02-09 18:22] LABS: Chol/HDL Ratio 3.27 Ratio; LDL Cholesterol,Calculated 58.7 mg/dL (0.0-131.0)
[2022-02-09] MEDS ORDERED: MELATONIN 5 MG TABLET PO SCH (21:00)
--- NOTE | 2022-02-10 01:47 | CONS ---
CONSULTATION REASON FOR CONSULTATION: Advice regarding constipation and other medical issues, requested by Psychiatry. HISTORY OF PRESENT ILLNESS: This is a 56-year-old gentleman with a past medical history of multiple medications including DJD, history of , abdominal surgery, being followed by psychiatric evaluation for depression. The patient complains of constipation. There is no history of any fever, rigors, or chills. The patient usually takes Metamucil in the past. PAST MEDICAL HISTORY: Reviewed, includes DJD, history of bowel surgery as mentioned earlier. HOME MEDICATIONS: Again reviewed, include Norvasc. Doses are reviewed. ALLERGIES: Morphine. FAMILY HISTORY: Reviewed, includes DVT. SOCIAL HISTORY: History of smoking. REVIEW OF SYSTEMS: 14-point review is negative except as mentioned earlier. PHYSICAL EXAMINATION: VITAL SIGNS: Pulse 65, blood pressure 152/83, respirations 16. HEENT: Conjunctivae normal. NECK: No jugular venous distention. No carotid bruits. CARDIOVASCULAR: S1, S2 muffled. ABDOMEN: Soft, nontender. No mass palpable. Status post surgery. CENTRAL NERVOUS SYSTEM: No focal deficits. SKIN: No ulcer, rash, LABS: Reviewed. ASSESSMENT: 1. Constipation. 2. History of bowel surgery for perforated diverticulitis. 3. Degenerative joint disease. 4. Depression. 5. Multiple medical issues. RECOMMENDATIONS AND DISCUSSION: This is a 56-year-old gentleman, who presented with multiple medical issues. I would recommend continuing the current management and treatment. Otherwise, resume the home medications and Metamucil p.r.n. We will follow the patient closely with you. The patient may be asked to follow with the primary physician in the outpatient setting. MMJANNETTEL / IGNACIAN: [id number] / MTDD
[2022-02-10] MEDS: PSYLLIUM HUSK 100% 6 GM PACKET PO SCH ×4 (08:40→20:57)
[2022-02-10] MEDS: amLODIPine 2.5 MG TAB PO SCH (08:41)
[2022-02-10] MEDS: DULoxetine HCL 30 MG CAPSULE.DR PO SCH (08:41)
[2022-02-10] MEDS: NICOTINE 14MG/24HR PATCH TRANSDERM SCH (08:41)
[2022-02-10] MEDS: PANTOPRAZOLE 40 MG TABLET PO SCH (08:41)
[2022-02-10] MEDS ORDERED: traZODone HCL 50 MG TAB PO PRN (11:45)
--- NOTE | 2022-02-10 11:45 | P.PN ---
Progress Note - Text Progress Note Date: 02/10/22 Interval History: Patient was seen wandering the hallways and was directable and agreeable to jessy cooper with science writer in the office. Patient claims that he is doing a bit better today. He claims that he is feeling more optimistic. He states that his anxiety has improved since yesterday. He states that he did take a Ativan yesterday because he was not able to sleep and claims that it is mainly because of his roommate that he got yesterday. He states that his mood has been gradually improving on the medications and not reporting any problems with it. He states that he is going to some groups and attending to participate. He claims that he spoke with his the phone. At this time patient denies any suicidal or homical ideations, intent or plan. Patient denies any auditory, visual hallucinations and denies any paranoia or delusions. Patient denies any side effects from the medications and has been compliant with meds. Mental Status Exam: General Appearance: Patient appears to be well built, bald, stated age is alert, directable, and attempts to cooperate. Patient appears to have fair hygiene and grooming. Behavior: Patient is seated without any agitated behavior. Speech: Patient's speech is fluent and nonpressured. Mood/Affect: Patient reports their mood is improving, affect is congruent Suicidality/Homicidality: Patient denies having any homicidal ideation intent or plan. Denies any suicidal ideations intent or plan Perceptions: Patient denies any visual hallucinations and denies any auditory hallucinations Though content/process: There is no evidence of any delusional thought content and thought process is linear and goal-directed. Memory and concentration: AOX3, grossly intact for the purposes of this session. Judgment and insight: Fair IMPRESSIONS: Depressive disorder unspecified Panic attack Nicotine dependence Plan: -Patient continues to meet criteria for inpatient psychiatric admission for symptom stabilization and safety. Patient has signed adult voluntary form and medication consent and was placed in patient's chart. -Medications: Cymbalta 30 mg daily for mood/anxiety. increase Melatonin 10 mg daily at bedtime for sleep. added trazodone 25 mg qhs prn for sleep. -When necessary Ativan and Haldol for agitation/aggression. -NRT - nicotine patch -SW on board for discharge planning. Encouraged the patient to participate in milieu. Likely discharge tomorrow if patient continues to improve.
[2022-02-10] MEDS ORDERED: MELATONIN 5 MG TABLET PO SCH (21:00)
[2022-02-11 07:05] VITALS: TEMP 98.7
[2022-02-11] MEDS: NICOTINE 14MG/24HR PATCH TRANSDERM SCH (08:24)
[2022-02-11] MEDS: amLODIPine 2.5 MG TAB PO SCH (08:25)
[2022-02-11] MEDS: PANTOPRAZOLE 40 MG TABLET PO SCH (08:25)
[2022-02-11] MEDS: PSYLLIUM HUSK 100% 6 GM PACKET PO SCH (08:25)
[2022-02-11] MEDS: DULoxetine HCL 30 MG CAPSULE.DR PO SCH (08:25)
[2022-02-11 08:26] VITALS: BP 118/80; PULSE 78; RESP 16
--- NOTE | 2022-02-11 10:22 | P.DS ---
Providers Date of admission: 02/08/22 22:51 Expected date of discharge: 02/11/22 Attending physician: Riki Manzo MD Consults: 02/08/22 22:55 Consult Physician Routine Consulting Provider: Catherine Aguilera Consult Reason/Comments: H&P and medical follow up Do you want consulting provider notified?: Yes, Notify in am Primary care physician: Ross Lou - Discharge Diagnosis(es) (1) Depressive disorder Current Visit: Yes Status: Acute Priority: High (2) Panic attack Current Visit: Yes Status: Acute Priority: High (3) Nicotine dependence Current Visit: Yes Status: Acute Priority: Low Hospital Course: Admission HPI: Admission note was completed by selling underwriter "Patient is a 56 yo male, who is currently , 3 kids, 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 According to Er note patient was endorsing hopelessness and suicidal thoughts. Patient signed voluntary and was admitted to the psychunit. Patients UDS was negative for any substances. He claims that he was feeling "very overwhelmed" and spoke about his stressors at work. He states lately his job has been letting people go and more and more work load has been going on to him. He states that he wants to leave. He claims that he is working at this job since 2008. He states that he never had a panic attack before and felt that "the world was ending". He states that his helps him get to the hospital if she is dealt with similar situations in the past. He states that he felt that his heart was racing and his anxiety level was very high. He claims that he was going on for the past day. He states that he is feeling depressed at this time. He claims that he used to be on Celexa in the past which has helped. He claims that his sleep has been on and off and appetite as been fairly good. Patient denies any suicidal or homicidal ideations intent or plan. At this time patient denies any auditory or visual hallucinations. Patient denies any flight of ideas racing thoughts and increased in goal directed behavior. Patient admits to using cigarettes daily, alcohol occasionally." Hospital course: Upon admission to the unit patient was directable and agreeable to commence treatment and signed adult voluntary form . Patient got along well with other patients on the unit and followed unit protocol. Patient was compliant with the medications and denied any side effects throughout hospital course. Patient was started on Cymbalta 30 mg daily for mood/anxiety, melatonin 10 mg daily at bedtime for sleep. Patient spoke of his stressors and engaged in therapy both group and individual. Patient was also seen by medical team for history and physical exam. Throughout the course of the hospitalization patient gradually improved with regards to mood, anxiety, sleep and became more future oriented with improved insight and judgment. On the day of discharge patient denied any suicidal or homicidal ideations intent or plan denied any auditory or visual hallucinations. Patient endorsed wanting to live for his health and family. The patient claims that he has guns in his house however they are locked away in a safe. Patient denied any paranoia and did not endorse any delusions. Patient does not have a significant history of substance abuse and was counseled on abstaining from all substances including alcohol and marijuana. Patient was also counseled on the medications and need for regular compliance and was encouraged to follow-up with their outpatient appointment for mental health and also for primary care. Prior to discharge a family meeting will be arranged by director social welfare to answer any questions and ensure safety upon discharge. Mental status exam: General Appearance: Patient appears to be short in stature, shaved head, stated age is alert, pleasant, and cooperative. Patient is in no acute distress and has improved hygiene and grooming Behavior: Patient is calmly seated without any agitated behavior. Speech: Patient's speech is fluent and nonpressured. Mood/Affect: Patient reports their mood is "better", affect is congruent and euthymic. Suicidality/Homicidality: Patient denies having any suicidal or homicidal ideation intent or plan. Perceptions: Patient denies any auditory or visual hallucinations. Though content/process: There is no evidence of any delusional thought content and thought process is linear and goal-directed. more future oriented Memory and concentration: AOX3, grossly intact for the purposes of this session. Can spell "WORLD" backwards correctly. Judgment and insight: improved with guarded prognosis Impression: Depressive disorder unspecified Panic attack Nicotine dependence Plan: -Continue with discharge today as patient has improved and stabilized psychiatrically and is not currently an imminent threat to himself and/or others. -Continue medications: Cymbalta 30 mg daily for mood/anxiety, melatonin 10 mg daily at bedtime for sleep. -Patient was counseled on the need for medication compliance and appropriate follow-up at mental health and also primary care for medical issues. Patient verbalized understanding and agreed. -Social work to arrange for and conduct family meeting to ensure safety upon discharge and answer any questions/concerns. Social work also to arrange for patients follow up appointments for psychiatric care along with follow up with primary care provider. -Patient counseled on abstaining from recreational drugs and marijuana and alcohol. Was informed/educated on the adverse effects on their physical and mental health. Patient verbally agreed and understood. -Patient was instructed to return to the hospital or seek immediate medical care if their psychiatric or medical symptoms do worsen or reoccur. Allergies Allergy/AdvReac Type Severity Reaction Status Date / Time morphine Allergy Anaphylaxis Verified 02/08/22 11:02 Laboratory Results WBC 7.9 k/uL (3.8-10.6) 02/09/22 12:34 RBC 5.14 m/uL (4.30-5.90) 02/09/22 12:34 Hgb 15.4 gm/dL (13.0-17.5) 02/09/22 12:34 Hct 46.8 % (39.0-53.0) 02/09/22 12:34 MCV 91.0 fL (80.0-100.0) 02/09/22 12:34 MCH 30.0 pg (25.0-35.0) 02/09/22 12:34 MCHC 33.0 g/dL (31.0-37.0) 02/09/22 12:34 RDW 13.0 % (11.5-15.5) 02/09/22 12:34 Plt Count 283 k/uL (150-450) 02/09/22 12:34 MPV 7.2 02/09/22 12:34 Neutrophils % 64 % 02/09/22 12:34 Lymphocytes % 25 % 02/09/22 12:34 Monocytes % 6 % 02/09/22 12:34 Eosinophils % 3 % 02/09/22 12:34 Basophils % 1 % 02/09/22 12:34 Neutrophils # 5.1 k/uL (1.3-7.7) 02/09/22 12:34 Lymphocytes # 1.9 k/uL (1.0-4.8) 02/09/22 12:34 Monocytes # 0.5 k/uL (0-1.0) 02/09/22 12:34 Eosinophils # 0.2 k/uL (0-0.7) 02/09/22 12:34 Basophils # 0.0 k/uL (0-0.2) 02/09/22 12:34 Sodium 141 mmol/L (137-145) 02/09/22 12:34 Potassium 4.8 mmol/L (3.5-5.1) 02/09/22 12:34 Chloride 101 mmol/L (98-107) 02/09/22 12:34 Carbon Dioxide 30 mmol/L (22-30) 02/09/22 12:34 Anion Gap 10 mmol/L 02/09/22 12:34 BUN 11 mg/dL (9-20) 02/09/22 12:34 Creatinine 0.95 mg/dL (0.66-1.25) 02/09/22 12:34 Est GFR (CKD-EPI)AfAm >90 (>60 ml/min/1.73 sqM) 02/09/22 12:34 Est GFR (CKD-EPI)NonAf 88 (>60 ml/min/1.73 sqM) 02/09/22 12:34 Glucose 71 mg/dL (74-99) L 02/09/22 12:[address] Glu mg/dL 112 02/09/22 12:34 Hemoglobin A1c 5.5 % (0.0-6.0) 02/09/22 12:34 Calcium 9.3 mg/dL (8.4-10.2) 02/09/22 12:34 Total Bilirubin 0.4 mg/dL (0.2-1.3) 02/09/22 12:34 AST 26 U/L (17-59) 02/09/22 12:34 ALT 27 U/L (4-49) 02/09/22 12:34 Alkaline Phosphatase 51 U/L (38-126) 02/09/22 12:34 Total Protein 6.9 g/dL (6.3-8.2) 02/09/22 12:34 Albumin 4.4 g/dL (3.5-5.0) 02/09/22 12:34 Triglycerides 217.00 mg/dL (0.00-149.00) H 02/09/22 12:34 Cholesterol 147.00 mg/dL (0.00-200.00) 02/09/22 12:34 LDL Cholesterol, Calc 58.7 mg/dL (0.0-131.0) 02/09/22 12:34 VLDL Cholesterol, Calc 43.40 mg/dL (5.00-40.00) H 02/09/22 12:34 HDL Cholesterol 44.90 mg/dL (40.00-60.00) 02/09/22 12:34 Cholesterol/HDL Ratio 3.27 Ratio 02/09/22 12:34 TSH 1.340 mIU/L (0.465-4.680) 02/09/22 12:34 Urine Opiates Screen Not Detected (NotDetected) 02/08/22 10:21 Ur Oxycodone Screen Not Detected (NotDetected) 02/08/22 10:21 Urine Methadone Screen Not Detected (NotDetected) 02/08/22 10:21 Ur Propoxyphene Screen Not Detected (NotDetected) 02/08/22 10:21 Ur Barbiturates Screen Not Detected (NotDetected) 02/08/22 10:21 U Tricyclic Antidepress Not Detected (NotDetected) 02/08/22 10:21 Ur Phencyclidine Scrn Not Detected (NotDetected) 02/08/22 10:21 Ur Amphetamines Screen Not Detected (NotDetected) 02/08/22 10:21 U Methamphetamines Scrn Not Detected (NotDetected) 02/08/22 10:21 U Benzodiazepines Scrn Not Detected (NotDetected) 02/08/22 10:21 Urine Cocaine Screen Not Detected (NotDetected) 02/08/22 10:21 U Marijuana (THC) Screen Not Detected (NotDetected) 02/08/22 10:21 Coronavirus (PCR) Not Detected (Not Detectd) 02/08/22 13:51 Vital Signs Temp 98.7 F 02/11/22 06:41 Pulse 78 02/11/22 08:25 Resp 16 02/11/22 08:25 BP 118/80 02/11/22 08:25 Pulse Ox 97 02/08/22 23:46 FiO2 Patient Condition at Discharge: Stable Plan - Discharge Summary New Discharge Prescriptions: New amLODIPine [Norvasc] 2.5 mg PO DAILY 30 Days tab DULoxetine HCL [Cymbalta] 30 mg PO DAILY 30 Days cap Nicotine 14Mg/24Hr Patch [Habitrol] 1 patch TRANSDERM DAILY 14 Days patch Melatonin 10 mg PO HS 30 Days tab Continue Omeprazole Magnesium [PriLOSEC] 20 mg PO DAILY Discontinued amLODIPine [Norvasc] 2.5 mg PO DAILY Discharge Medication List Omeprazole Magnesium [PriLOSEC] 20 mg PO DAILY 09/15/21 [History] DULoxetine HCL [Cymbalta] 30 mg PO DAILY 30 Days cap 02/11/22 [Rx] Melatonin 10 mg PO HS 30 Days tab 02/11/22 [Rx] Nicotine 14Mg/24Hr Patch [Habitrol] 1 patch TRANSDERM DAILY 14 Days patch 02/11/22 [Rx] amLODIPine [Norvasc] 2.5 mg PO DAILY 30 Days tab 02/11/22 [Rx] Follow up Appointment(s)/Referral(s): Ross Lou MD [Primary Care Provider] - 1-2 days Activity/Diet/Wound Care/Special Instructions: Avoid the use of street drugs and alcohol. Take all prescriptions as prescribed. When you are in need of refills on your medications, please contact your medical provider and/or outpatient psychiatrist to have this done. Please go to scheduled outpatient appointment for aftercare treatment. If symptoms return or become worse, call the crisis line at and/or go to the nearest emergency room for evaluation. Discharge Disposition: HOME SELF-CARE
== END 2022-02-11 12:10 | disposition home or self-care (01) | DRG 881 ==
LOC: EC 09:32 → 3MHU 22:51
PROVIDERS: ADMIT Psychiatry & Neurology Psychiatry; ATTEND Psychiatry & Neurology Psychiatry
DX: F32.A Depression, unspecified (principal); R45.851 Suicidal ideations; Z87.19 Personal history of other diseases of the digestive system; K21.9 Gastro-esophageal reflux disease without esophagitis; F17.210 Nicotine dependence, cigarettes, uncomplicated; Z20.822 Contact with and (suspected) exposure to COVID-19; F41.0 Panic disorder [episodic paroxysmal anxiety]; H91.90 Unspecified hearing loss, unspecified ear; I10 Essential (primary) hypertension; K59.00 Constipation, unspecified; M19.90 Unspecified osteoarthritis, unspecified site; Z79.899 Other long term (current) drug therapy; Z82.0 Family history of epilepsy and other diseases of the nervous system; Z93.3 Colostomy status; Z88.5 Allergy status to narcotic agent
CPT/HCPCS: 80053; 80061; 80306; 82075; 83036; 84443; 85025; 87635; 90686; 99285

== ENCOUNTER 2022-10-07 07:31 | Day surgery (SDC) | payer BC ==
[~2022-10-07 07:31] MED LIST changes: -LIDOCAINE 1% (10MG/ML) FOR IV START INTRADERMA PRN; +fentaNYL (PF) 50 MCG/ML 2 ML AMP IV PRN
[2022-10-07 08:10] LABS: Glucose,Whole Blood 100 mg/dL (70-110)
--- NOTE | 2022-10-07 08:29 | P.GSHP ---
History of Present Illness H&P Date: 10/07/22 Chief Complaint: Incisional hernia 56-year-old male here for elective repair incisional hernia. Patient with history of previous Narvaez's procedure and subsequent colostomy reversal. He also had a repair of a colostomy site hernia. Recently has noticed increased swelling upper midabdomen. He has a bulge there. Mild pain. Past Medical History Past Medical History: GERD/Reflux, Hearing Disorder / Deafness, Hypertension, Osteoarthritis (OA) Additional Past Medical History / Comment(s): See Dr Montemayor's H&P. Hard of hearing. Hx Diverticulitis with rupture 03/2020. History of Any Multi-Drug Resistant Organisms: None Reported Past Surgical History: Bowel Resection, Hernia Repair, Orthopedic Surgery Additional Past Surgical History / Comment(s): 03/2020 Bowel resection with colostomy then reversed/had leak at anastamosis then ileostomy which was reversed, sigmoidoscopy, colonoscopy, umbilical hernia repair, bilateral carpal tunnel released. skin graft to finger tip as child Past Anesthesia/Blood Transfusion Reactions: No Reported Reaction Additional Past Anesthesia/Blood Transfusion Reaction / Comment(s): Clausterphobia. Smoking Status: Current some day smoker - Past Family History Mother Family Medical History: Dementia, Deep Vein Thrombosis (DVT) Additional Family Medical History / Comment(s): Mother is from Alzheimer's. Father Family Medical History: Myocardial Infarction ([place]) Additional Family Medical History / Comment(s): Father of a [place] at the age of 80yrs. Medications and Allergies Home Medications Medication Instructions Recorded Confirmed Type Omeprazole Magnesium [PriLOSEC] 20 mg PO DAILY 09/15/21 10/07/22 History DULoxetine HCL [Cymbalta] 30 mg PO DAILY 30 Days cap 02/11/22 10/07/22 Rx Nicotine 14Mg/24Hr Patch [Habitrol] 1 patch TRANSDERM DAILY 14 Days 02/11/22 10/07/22 Rx patch amLODIPine [Norvasc] 2.5 mg PO DAILY 30 Days tab 02/11/22 10/07/22 Rx Allergies Allergy/AdvReac Type Severity Reaction Status Date / Time morphine Allergy Anaphylaxis Verified 10/07/22 07:47 Surgical - Exam Vital Signs Temp Pulse Resp BP Pulse Ox 97.2 F L 67 16 131/85 95 10/07/22 07:47 10/07/22 07:47 10/07/22 07:47 10/07/22 07:47 10/07/22 07:47 Physical exam: General: Well-developed, well-nourished HEENT: Normocephalic, sclerae nonicteric Abdomen: Nontender, nondistended, prior scars noted, reducible incisional hernia just to the right of midline with 1 cm defect Extremities: No edema Neuro: Alert and oriented Assessment and Plan (1) Incisional hernia Narrative/Plan: 56-year-old male with incisional hernia. We'll proceed with open repair with mesh at this time. Risks of bleeding, infection, recurrence, bladder and bowel injury, numbness, nerve injury were discussed with the patient. The patient understands and wishes to proceed. Current Visit: No Status: Acute Code(s): K43.2 - INCISIONAL HERNIA WITHOUT OBSTRUCTION OR GANGRENE SNOMED Code(s): 519648079
[2022-10-07] MEDS ORDERED: BUPIVACAINE (PF) 0.25% 30 ML VIAL SQ ONE ×2 (08:30→09:29)
[2022-10-07] MEDS ORDERED: MIDAZOLAM 2 MG/2 ML VIAL IVP ONE (08:36)
[2022-10-07] MEDS ORDERED: SODIUM CHLORIDE 0.9% (PF) 10 ML VIAL ONE (08:43)
[2022-10-07] MEDS ORDERED: KETOROLAC 15 MG/ML 1 ML VIAL ONE (08:43)
[2022-10-07] MEDS ORDERED: PROPOFOL 10 MG/ML 20 ML VIAL IV ONE (08:43)
[2022-10-07] MEDS ORDERED: ePHEDrine 50 MG/ML 1 ML VIAL ONE (08:43)
[2022-10-07] MEDS ORDERED: ROCURONIUM 10 MG/ML (5 ML VIAL) IV ONE (08:43)
[2022-10-07] MEDS ORDERED: SUCCINYLCHOLINE CHLORIDE 200 MG/10 ML VIAL IV ONE (08:43)
[2022-10-07] MEDS ORDERED: GLYCOPYRROLATE 0.2 MG/ML 2 ML VIAL ONE (08:43)
[2022-10-07] MEDS ORDERED: NEOSTIGMINE 1 MG/ML 10 ML VIAL ONE (08:43)
[2022-10-07] MEDS ORDERED: ROPIVACAINE 5 MG/ML 30 ML VIAL ONE (08:43)
[2022-10-07] MEDS ORDERED: fentaNYL (PF) 50 MCG/ML 2 ML AMP ONE (08:43)
[2022-10-07] MEDS ORDERED: LIDOCAINE 2% INJ 20 MG/ML (2 ML VIAL) ONE (08:43)
--- NOTE | 2022-10-07 09:36 | P.ANPRN ---
Procedure Note - Anesthesia - Nerve Block Performed Bilateral Rectus Abdominis Single Time Out Performed: Yes ([id number]) Date of Procedure: 10/07/22 Procedure Start Time: 08:35 Procedure Stop Time: 08:46 Location of Patient: PreOp Indication: Acute Post-Operative Pain, Dx/Pain Location (bilateral abdominal pain), Requested by Surgeon Specifically requested for management of pain by DrAc: Reuben Montemayor Sedation Type: Sedate with meaningful contact maintained Preparation: Sterile Prep, Sterile Dressing Position: Supine Catheter: None Needle Types: Pajunk Needle Gauge: 21 Ultrasound used to visualize needle placement: Yes Ultrasound used to observe medication spread: Yes Injectate: 0.5% Ropivacaine (see comment for volume) (30cc) Blood Aspirated: No Pain Paresthesia on Injection Noted: No Resistance on Injection: Normal Image Stored and Saved: Yes Events: Uneventful and Well Tolerated
--- NOTE | 2022-10-07 09:53 | P.OP ---
Date of Procedure: 10/07/22 Procedure(s) Performed: PREOPERATIVE DIAGNOSIS: Incisional hernia POSTOPERATIVE DIAGNOSIS: Same PROCEDURE: Open repair of incisional hernia with mesh SURGEON: Dr. Montemayor ANESTHESIA: General OPERATIVE PROCEDURE DETAILS: Patient placed on the operating table in the supine position. Abdomen was prepped and draped in usual sterile fashion. The previous epigastric portion of the incision was re-incised. Dissection through the subcutaneous tissues took place using electrocautery. The patient had a 1.7 x 1 cm fascial defect along the incision slightly to the right of midline. The preperitoneal space was dissected. The 4.3 cm mesh was then placed in the preperitoneal space and sutured in place using trans-fascial 0 Ethibond sutures. The defect was then closed horizontally using interrupted horizontal mattress sutures of 0 Ethibond. The patient had several other small 2-3 mm defects in the fascia where perforating vessels were seen through the thin layer of fascia. The patient had some diastases noted as well. At the small defects there was about 3 of them they were closed using a single 0 Ethibond stitch. The subcutaneous tissues were closed using 3-0 Vicryl sutures. The skin was closed using subcuticular Monocryl 4-0 suture. Abdominal binder was applied HERNIA CHARACTERISTICS: Length: 1.7 cm Width: 1 cm Type: Incisional TYPE OF MESH USED: 4.3 cm ventral X LOCATION OF MESH: Sub-lay FIXATION: 0 Ethibond PREOPERATIVE DISCUSSION ON SMOKING CESSASTION: Yes PREOPERATIVE DISCUSSION ON MORBID OBESITY: Yes PREOPERATIVE DISCUSSION ON APPROPRIATE USE OF NARCOTIC USE: Yes PREOPERATIVE EDUCATION: Multi Modal, Smoking Cessation and Weight Loss with BMI over 35. DISPOSITION: Stable to recovery room
[2022-10-07 09:56] VITALS: TEMP 97.3
[2022-10-07 10:11] VITALS: RESP 16
[2022-10-07 11:24] VITALS: BP 109/67; PULSE 66
[2022-10-07] MEDS ORDERED: IBUPROFEN 600 MG TAB PO SCH (13:00)
[2022-10-07] MEDS ORDERED: ACETAMINOPHEN TAB 325 MG TAB PO SCH (16:00)
== END 2022-10-07 12:21 | disposition home or self-care (01) ==
LOC: OR 07:31
PROVIDERS: ATTEND Surgery
DX: K43.2 Incisional hernia without obstruction or gangrene (principal); G89.18 Other acute postprocedural pain; K21.9 Gastro-esophageal reflux disease without esophagitis; I10 Essential (primary) hypertension; M19.90 Unspecified osteoarthritis, unspecified site; F17.200 Nicotine dependence, unspecified, uncomplicated; Z82.49 Family history of ischemic heart disease and other diseases of the circulatory system; Z79.899 Other long term (current) drug therapy
CPT/HCPCS: 93005; 64486; 49593; C1781; J2250; J0330; J1100; J2710; J0690; J2405; J3010; J2795; J1885; J2704; J1644; J2001

== ENCOUNTER → 2023-02-14 | Outpatient (CLI) | payer BC | END | disposition home or self-care (01) | LOC: LABPAT 12:26 | PROVIDERS: ATTEND Orthopaedic Surgery | DX: Z01.812 Encounter for preprocedural laboratory examination (principal); M16.11 Unilateral primary osteoarthritis, right hip | CPT/HCPCS: 36415; 86850; 86900; 86901; 87070 ==

== ENCOUNTER → 2023-05-26 | Outpatient (CLI) | payer BC ==
--- NOTE | 2023-05-26 09:11 | MR ---
EXAMINATION TYPE: MR Prostate wo/w con DATE OF EXAM: 05/26/2023 COMPARISON: None IMAGE QUALITY: Suboptimal but repeat not required. INDICATION: Prostate cancer. PSA: 5.38 ng/ml on April 10, 2023 Recent Biopsy and Date: May 03, 2022 Pathology Report (If Applicable): Left lateral base, adenocarcinoma, Neil grade 3+3 = 6 approximat ayse 5 mm of 8 mm sample, 62% tissue volume. TECHNIQUE: Examination was performed using a 3T MRI without an endorectal coil. Multiparametric imaging was perf ormed with T2 mutliplanar sequences, axial diffusion weighted imaging and dynamic contrast enhanced i maging, utilizing 7 mL intravenous Gadavist gadolinium contrast. FINDINGS: PROSTATE VOLUME: 4.8 cm SI x 3.9 cm AP x 5.3 cm LR Vol= 52.0 cc PSA DENSITY: 0.10 ng/ml/cc Diffusion weighted imaging shows distortion particularly along the right aspect from metallic hip pro sthesis. No obvious area of increased signal on diffusion-weighted images or diminished signal on ADC mapping. Heterogeneous diminished T2 signal in the peripheral zone is noted greatest on the right ce ntral aspect. Central zone shows heterogeneity without suspicious area of diminished signal on T2-heidy ghted images. Urinary bladder shows mild trabeculation. No suspicious wall thickening and wall promin ence. No free fluid in the pelvis. No suspicious bowel dilatation. No concerning pelvic adenopathy is seen. IMPRESSION: Enlarged prostate consistent with BPH. A focus of clinically significant cancer is not identified. Highest Assessment Category: 2 MRI Stage: T1c N0 M0 based on review of pelvic images. False negative rates for MRI range from 5-20% depending on risk profile. Assessment Categories: 1 ? Very low (clinically significant cancer is highly unlikely to be present) 2 ? Low (clinically significant cancer is unlikely to be present) 3 ? Intermediate (the presence of clinically significant cancer is equivocal) 4 ? High (clinically significant cancer is likely to be present) 5 ? Very high (clinically significant cancer is highly likely to be present) Locations: PZ = peripheral zone; TZ = transition zone CZ=central zone; AFS = anterior fibromuscular stroma a=anterior half (i.e. PZa=anterior half of peripheral zone); pm= posterior medial (i.e PZpm) pl = postero-lateral (i.e. PZpl); p = posterior half (i.e. TZp) ; a = anterior half (i.e TZa or P Za) Other: N=no or no; E= equivocal; Y=yes EPE = extraprostatic extension NVB = neurovascular bundle NA = not applicable/not available
== END | disposition home or self-care (01) ==
LOC: RADMRIMAIN 07:21
PROVIDERS: ATTEND Urology
DX: C61 Malignant neoplasm of prostate (principal); N40.0 Benign prostatic hyperplasia without lower urinary tract symptoms
CPT/HCPCS: 72197; A9585